=== PATIENT | female | born 1990 | race Caucasian/White ===

== ENCOUNTER 2020-04-16 12:13 | Outpatient (CLI) | payer MEDICAID, SELFPAY ==
[2020-04-18 09:43] LABS: COVID-19 RT-PCR Result NEGATIVE (Negative)
== END 2020-04-16 12:33 ==
PROVIDERS: Visit Provider Internal Medicine
DX: J45.909 Unspecified asthma, uncomplicated (principal); Z11.59 Encounter for screening for other viral diseases
CPT/HCPCS: U0003

== ENCOUNTER 2020-05-18 08:27 | Outpatient (CLI) | payer MEDICAID, SELFPAY ==
[2020-05-19 15:29] LABS: COVID-19 RT-PCR UVMMC Result Negative (Negative)
== END 2020-05-18 08:47 ==
PROVIDERS: Visit Provider Surgery
DX: Z11.52 Encounter for screening for COVID-19 (principal); Z01.818 Encounter for other preprocedural examination
CPT/HCPCS: U0003

== ENCOUNTER 2020-05-30 03:42 | Outpatient (CLI) | payer MEDICAID, SELFPAY ==
[2020-05-31 18:25] LABS: COVID-19 RT-PCR Result NEGATIVE (Negative)
== END 2020-05-30 04:02 ==
PROVIDERS: Visit Provider Surgery
DX: Z11.52 Encounter for screening for COVID-19 (principal); Z01.818 Encounter for other preprocedural examination
CPT/HCPCS: U0003

== ENCOUNTER 2020-06-14 22:21 | Emergency (ER) | payer MEDICAID, SELFPAY ==
--- NOTE | 2020-06-14 00:50 | DI.CT_ITS ---
EXAM: CT ABDOMEN PELVIS W CLINICAL HISTORY: POD 8 hernia repair with new pain/bulging TECHNIQUE: Imaging Protocol: Axial computed tomography images with coronal and sagittal reformatted images were created and reviewed CONTRAST MATERIAL: Intravenous: Omnipaque 350 Contrast volume:100 mL Oral: Yes COMPARISON: CT RENAL COLIC WO CONTRAST from 09/06/2009 FINDINGS: ABDOMEN: Lung Bases: Normal where visualized. Liver: Normal density. No measurable mass. The liver measures 20 cm in length. Portal, Superior Mesenteric, and Splenic Veins: Unremarkable. Gallbladder and Biliary Tract: No radiodense calculus or dilation. Pancreas: Normal density, no abnormal calcifications or inflammatory process. Spleen: Normal. Adrenals: No masses seen. Kidneys: Normal size, contour and axis. No radiodense stones or obstructive uropathy. No masses seen. Note is made of a circum aortic left renal vein. Abdominal Aorta: Abdominal portion non-dilated. Bowel: No obstruction or bowel wall thickening. No evidence of appendicitis. There is a large amount of stool within the colon suggesting constipation. Peritoneal Cavity: No ascites, collection or mesenteric inflammatory response. No free air. Lymph Nodes: Within normal limits. Bones: Within normal limits for the patient's age. Soft Tissues: Postsurgical changes are seen in the midline upper abdominal wall. There is a low-atte nuation fluid density area in the surgical bed. There is a small focus of air. No enhancing wall is seen at this time. No evidence of of communication with the intra-abdominal cavity suggesting herni ation. PELVIS: Bladder: Symmetric distention, no gross wall thickening. Reproductive Organs: Unremarkable as visualized. Lymph Nodes: Within normal limits. Bones: Within normal limits for the patient's age. IMPRESSION: Postsurgical changes in the supraumbilical region of the anterior abdominal wall consistent with the patient's recent hernia repair. There is a focal low-attenuation fluid density at the surgical site which contains a small focus of air. There is however, no peripherally enhancing wall to suggest abs cess. This may represent a postsurgical seroma/hematoma or developing phlegmon. Please correlate cl inically. No evidence of herniation at the surgical site. RADIATION DOSE DELIVERED: 757.81mGy.cm Total DLP DATA REPOSITORY: All CT scans at this facility are submitted to the National Radiology Data Registry (NRDR) Dose Index Registry (DIR) with the [employer] (A[employer]). RADIATION OPTIMIZATION: All CT scans at this facility use at least one of these dose optimization te chniques: automated exposure control; mA and/or kV adjustment per patient size (includes targeted exa ms where dose is matched to clinical indication); or iterative reconstruction.
[2020-06-14 22:25] VITALS: BP 135/85; PULSE 88; TEMP 36.5; O2SAT 99
--- NOTE | 2020-06-14 22:48 | W.ED.GENAD ---
Discharge Plan Disposition Patient Disposition: HOME Condition: Good Discharge Details Clinical Impression: Post-operative complication Primary Care Provider: Marie Ibarra ED Provider: Dean Holt Meds and New Rx's Prescriptions: Continued clonazepam 1 mg Tablet 1 mg PO DAILY RF: 0 methadone 10 mg/mL Concentrate 6 mg PO DAILY RF: 0 L norgest/e.estradiol-e.estrad [Ashlyna] 0.15 mg-30 mcg (84)/10 mcg (7) Tablets,Dose Pack,3 Month 1 tab PO DAILY RF: 0 Discharge Instructions Additional Instructions: CT scan shows collection of fluid in the subcutaneous tissue that is likely a seroma or hematoma. There is a small chance that it is the start of an infection though there is no evidence of that clinically at this time. You will need to contact your surgeon for close follow-up and refill of pain medication if needed. Recommend applying heat to the area on and off. Your surgeon will likely want to review the CAT scan himself so be sure to take the disc with you for follow-up. Return to ED if you develop fever, redness, warmth, drainage from the area. Medical Decision Making Patient presenting on postop day #8 from hernia repair with new, tender, hard oval mass below the incision which appears to be intact and not infected. Patient had had no issues prior to this evening. She otherwise looks well and the rest of her abdomen is benign. Will place IV and give Zofran and Toradol for her nausea and pain. Basic labs sent. CT scan with IV and oral contrast ordered. Laboratory studies unremarkable. White count normal. CT scan prelim read IMPRESSION: 1. Postsurgical changes of ventral, midline upper abdominal wall hernia repair with focal low-attenuation fluid density overlying surgical site within the subcutaneous fat. There is small focus of air associated with this collection, however without organized, peripherally enhancing wall to suggest abscess. May represent postsurgical seroma/hematoma versus developing phlegmon. Correlate clinically. No definite herniation of intra-abdominal contents at surgical site. 2. Mild hepatomegaly. Correlate with LFTs. Dictated and Authenticated by: Romaine Gamble MD Patient without fever, elevated white count, erythema, warmth and area is very firm to palpation. Therefore, suspect seroma/hematoma. Still complaining of significant pain and recurrent nausea. IV Tylenol and repeat Zofran given. Continues to complain of pain. Will dose with morphine but will need to find ride home. Disk made for patient to be discharged with so surgeon at [facility] [[email or web address] can review. Patient will need to contact in morning for follow up and refill of pain medications. Return to ED if develops fever, redness, warmth other signs of infection. Lab Data Lab results reviewed: Yes I reviewed the patient's lab results. HPI General Mode of arrival: ambulatory. Date/Time Provider Initiated Documentation: 06/14/20 22:22. Limitations to Documentation: no limitations. Information obtained by: patient and RN notes reviewed. HPI Narrative: Patient presents to the ED with pain and bulging in previous hernia site repair that occurred 8 days ago. Patient had been doing fine postop. She had no fever, nausea, vomiting, pain and had returned to work at [employer]. Tonight about 2 to 3 hours prior to coming in she started to have nausea and pain in the area with the incision had been made. She then felt a hard lump in that area that had not been there previously. Nausea and pain increased. She was unable to get a hold of the surgeon at [facility] [[email or web address]] who did the procedure. She came to the ED here for evaluation. Related Data Home Medications Medication Instructions Recorded Confirmed L norgest/e.estradiol-e.estrad 1 tab PO DAILY 06/14/20 06/14/20 [Ashlyna] clonazepam 1 mg PO DAILY 06/14/20 06/14/20 methadone 6 mg PO DAILY 06/14/20 06/14/20 Allergies Allergy/AdvReac Type Severity Reaction Status Date / Time No Known Allergies Allergy Unverified 08/18/13 10:23 General Stated Complaint: Abd Prob SUDHA: 3 Review of Systems Narrative: 02/21 Review of Systems completed and is negative except as stated above in HPI (Systems reviewed: Const, Eyes, ENT, Resp, CV, GI, , MSK, Skin, Neuro) [facility] Medical History No significant past medical history Surgical History S/P hernia repair Social History Smoking/Tobacco Use Status: Current every day Smoking risk assessment performed?: Yes Alcohol Intake: current Alcohol Intake frequency: holidays/special occasions only 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 HEENT: NC/AT. Normal facial exam. Eyes: Normal conjunctiva and sclera. Neck: Supple. Trachea midline. Lungs: Normal respiratory effort. Cor: Good radial pulses. GI: Soft and ND. 3 cm horizontal incision about 3cm above the umbilicus. Incision in tact without erythema. Hard, tender oval mass under the incision. Neuro: A+O x 3. Normal speech, mentation, gait. Cranial nerves II - XII grossly intact. No gross motor or sensory deficit. Ext: No C/C/E. Skin: Warm and dry without rash. Course Vital Signs Vital signs: Vital Signs Temperature 97.7 F 06/14/20 22:25 Pulse 88 06/14/20 22:25 Blood Pressure 135/85 06/14/20 22:25 Pulse Oximetry 99 06/14/20 22:25 Temperature 97.7 F 06/14/20 22:25 Temperature Source Temporal Artery Scan 06/14/20 22:25 Pulse 88 06/14/20 22:25 Respiratory Effort Non-Labored 06/14/20 22:30 Blood Pressure 135/85 06/14/20 22:25 Blood Pressure Position Sitting 06/14/20 22:25 Pulse Oximetry 99 06/14/20 22:25 Oxygen Delivery Method Room Air 06/14/20 22:25 Oxygen Flow Rate 0 06/14/20 22:25 Pain Level 7 06/14/20 22:25
[2020-06-14 23:00] LABS: Abs Immature Grans 0.02 10^3/uL (0.0-0.06); Absolute Basophil Count 0.05 10^3/uL (0.0-0.2); Absolute Eosinophil Count 0.17 10^3/uL (0.0-0.7); Absolute Lymphocyte Count 3.46 10^3/uL (1.2-3.4); Absolute Monocyte Count 0.72 10^3/uL (0.1-0.8); Absolute Neutrophil Count 4.95 10^3/uL (1.2-6.7); Basophils % 0.5; Eosinophils % 1.8; HCT 32.9 % (36.0-46.0); HGB 11.1 g/dL (11.2-15.7); Immature Grans % 0.2; Lymphocytes % 36.9; MCH 28.9 pg (27.0-33.0); MCHC 33.7 % (32.0-36.0); MCV 85.7 fL (80-95); MPV 9.1 fL (8.0-11.0); Monocytes % 7.7; Neutrophils % 52.9; Nucleated RBC 0 %; Platelet Count 342 10^3/uL (130-400); RBC 3.84 10^6/uL (3.93-5.22); RDW 12.8 % (11.7-14.6); RDW-SD 40.3 fL; WBC 9.37 10^3/uL (4.4-10.8)
[2020-06-14] MEDS: Lactated Ringers 1,000 ML 200 ML IV (23:00)
[2020-06-14] MEDS: Ondansetron 4 MG/2 ML VIAL IVP (23:00)
[2020-06-14] MEDS: Ketorolac 30 MG/ML VIAL IVP (23:01)
[2020-06-14 23:08] LABS: Anion Gap 9.8 mmol/L (3-11); BUN 14 mg/dL (7-18); CO2 24.2 mmol/L (21.0-32.0); CREATININE 0.6 mg/dL (0.55-1.02); Calcium 8.8 mg/dL (8.5-10.1); Chloride 105 mmol/L (98-107); Glucose 105 mg/dL (74-106); Potassium 3.7 mmol/L (3.5-5.1); Sodium 139 mmol/L (136-145)
[2020-06-14 23:12] LABS: HCG Qual (Serum) Negative
[2020-06-15] MEDS: Omnipaque 350 MG/ML 100 ML BTL IJ (01:01)
[2020-06-15] MEDS: Omnipaque 350 MG/ML 50 ML BTL IJ (01:02)
[2020-06-15] MEDS: Breeza Beverage 473 ML BTL PO ×2 (01:02→01:03)
[2020-06-15] MEDS: Normal Saline Flush 10 ML SYR IVP (01:03)
[2020-06-15] MEDS: Normal Saline - Diluent 50 ML VIAL IV (01:04)
--- NOTE | 2020-06-15 01:08 | DI.VRAD_ITS ---
PROCEDURE INFORMATION: Exam: CT Abdomen And Pelvis With Contrast Exam date and time: 06/14/2020 10:43 PM Age: 29 years old Clinical indication: Abdominal pain; Localized; Lower; Prior surgery; Surgery date: <1 month; Patient HX: 8 days post op hernia repair, new pain and bulging TECHNIQUE: Imaging protocol: Computed tomography of the abdomen and pelvis with contrast. Radiation optimization: All CT scans at this facility use at least one of these dose optimization techniques: automated exposure control; mA and/or kV adjustment per patient size (includes targeted exams where dose is matched to clinical indication); or iterative reconstruction. Contrast material: [id number]; Contrast volume: 100 ml; Contrast route: INTRAVENOUS (IV); COMPARISON: No relevant prior studies available. FINDINGS: Lungs: Lung bases are clear. Liver: Liver is mildly enlarged with right hepatic lobe measuring 20.3 cm craniocaudad. No hepatic mass. Gallbladder and bile ducts: Unremarkable. No calcified stones. No ductal dilation. Pancreas: Unremarkable. No ductal dilation. Spleen: Unremarkable. No splenomegaly. Adrenal glands: Normal. No mass. Kidneys and ureters: Unremarkable. No hydronephrosis. Ureters are normal in course and caliber. Stomach and bowel: No focal colonic mural thickening. There is moderate colonic stool burden, correlate for constipation. No bowel obstruction. Appendix: No evidence of acute appendicitis. Intraperitoneal space: No free air. No significant fluid collection. Vasculature: No abdominal aortic aneurysm or dissection. There is circumaortic left renal vein, normal anatomic variant. Lymph nodes: No pathologically enlarged lymph nodes. Urinary bladder: Unremarkable as visualized. Reproductive: Unremarkable as visualized. Bones/joints: Transitional lumbosacral anatomy with partial sacralization of the transverse elements of L5, left greater than right with asymmetric left pseudoarticulation. No acute fracture. Soft tissues: Postsurgical changes of the ventral, midline upper abdominal wall. There is focal low-attenuation fluid density with small focus of air. No organized, peripherally enhancing wall. There is no definite associated herniation of intra-abdominal contents. IMPRESSION: 1. Postsurgical changes of ventral, midline upper abdominal wall hernia repair with focal low-attenuation fluid density overlying surgical site within the subcutaneous fat. There is small focus of air associated with this collection, however without organized, peripherally enhancing wall to suggest abscess. May represent postsurgical seroma/hematoma versus developing phlegmon. Correlate clinically. No definite herniation of intra-abdominal contents at surgical site. 2. Mild hepatomegaly. Correlate with LFTs. Dictated and Authenticated by: Romaine Gamble MD. Ordering:SOWMYA Moran MD
[2020-06-15] MEDS: ACETAMINOPHEN 1,000 MG/100 ML BTL 400 MG IVPB (01:30)
[2020-06-15] MEDS: Ondansetron 4 MG/2 ML VIAL IVP (01:49)
[2020-06-15 02:25] VITALS: BP 122/65; PULSE 73; RESP 16; O2SAT 99
[2020-06-15 02:53] VITALS: BP 129/79; PULSE 66; RESP 16; O2SAT 99
== END 2020-06-15 03:10 | disposition home or self-care (01) ==
PROVIDERS: Emergency Provider Emergency Medicine
DX: L76.34 Postprocedural seroma of skin and subcutaneous tissue following other procedure (principal); R11.0 Nausea; R10.33 Periumbilical pain; G89.18 Other acute postprocedural pain; Z98.890 Other specified postprocedural states
CPT/HCPCS: 36415; 80048; 96361; 96365; 96374; 96375; 96376; 99285; 74177; 84703; 85025; 99284; J0131; J1885; J2405; J3490; Q9967

== ENCOUNTER 2020-08-20 14:16 | Emergency (ER) | payer MEDICAID, SELFPAY ==
[2020-08-20] VITALS (23 sets, daily range): BP systolic 102–132; BP diastolic 36–78; PULSE 53–90; RESP 10–26; TEMP 36.5; O2SAT 96–98
[2020-08-20 15:21] LABS: Abs Immature Grans 0.02 10^3/uL (0.0-0.06); Absolute Basophil Count 0.04 10^3/uL (0.0-0.2); Absolute Eosinophil Count 0.08 10^3/uL (0.0-0.7); Absolute Monocyte Count 0.53 10^3/uL (0.1-0.8); Absolute Neutrophil Count 6.17 10^3/uL (1.2-6.7); Basophils % 0.4; Eosinophils % 0.9; HCT 35.6 % (36.0-46.0); HGB 11.8 g/dL (11.2-15.7); Immature Grans % 0.2; MCHC 33.1 % (32.0-36.0); MCV 87.5 fL (80-95); MPV 9.3 fL (8.0-11.0); Monocytes % 5.7; Neutrophils % 66.8; Nucleated RBC 0 %; Platelet Count 352 10^3/uL (130-400); RBC 4.07 10^6/uL (3.93-5.22); RDW 13.3 % (11.7-14.6); RDW-SD 42.1 fL; WBC 9.24 10^3/uL (4.4-10.8)
[2020-08-20 15:38] LABS: INR 1.1 (0.9-1.1); PTT Activated 23.9 sec (21.0-27.5); Prothrombin Time 10.7 sec (9.3-11.0)
[2020-08-20 15:40] LABS: ALT 21 U/L (14-59); AST 12 U/L (15-37); Albumin 4.2 g/dL (3.4-5.0); Alkaline Phosphatase 41 U/L (46-116); Anion Gap 12.8 mmol/L (3-11); BUN 11 mg/dL (7-18); Bilirubin, Total 0.3 mg/dL (0.2-1.0); CO2 26.2 mmol/L (21.0-32.0); CREATININE 0.9 mg/dL (0.55-1.02); Calcium 8.9 mg/dL (8.5-10.1); Chloride 103 mmol/L (98-107); Glucose 84 mg/dL (74-106); Potassium 3.6 mmol/L (3.5-5.1); Sodium 142 mmol/L (136-145); Total Protein 7.7 g/dL (6.4-8.2)
--- NOTE | 2020-08-20 15:42 | W.ED.GENAD ---
Discharge Plan Disposition Patient Disposition: STILL A PATIENT Condition: Stable Discharge Details Chief Complaint: SOB Clinical Impression: Shortness of breath Primary Care Provider: Veronica Franklin ED Provider: Tj Galicia Home Meds and New Rx's Prescriptions: No Action hydroxyzine HCl 25 mg Tablet 50 mg PO HS RF: 0 clonazepam 1 mg Tablet 1 mg PO DAILY RF: 0 methadone 10 mg/mL Concentrate 3 mg PO DAILY RF: 0 L norgest/e.estradiol-e.estrad [Ashlyna] 0.15 mg-30 mcg (84)/10 mcg (7) Tablets,Dose Pack,3 Month 1 tab PO DAILY RF: 0 Medical Decision Making 30-year-old female, past sickle history of smoking, asthma, presents to the ER for 1 week history of worsening shortness of breath, no relief with her inhaler. Primarily dry cough, occasional clear sputum. Reports shortness of breath but denies any chest pain. Denies pain or swelling in her legs. Clinically she appears well, nontoxic. Blood pressure 132/78 pulse in the 90s, afebrile, O2 sat 96% on room air. Given she does take a daily control, we cannot use the PERC criteria. Will obtain IV access, CBC, CMP, EKG, D-dimer. We will also obtain a send out Covid test. If D-dimer is positive will obtain CTA, if D-dimer is negative will obtain chest x-ray. Patient comfortable with this plan Initial laboratory values are unremarkable. Awaiting D-dimer and EKG. Medical Records Medical records reviewed: Yes I reviewed the patient's medical records. Lab Data Lab results reviewed: Yes I reviewed the patient's lab results. Labs: Laboratory Tests Range/Units 08/20/20 08/20/20 08/20/20 15:13 15:13 15:13 WBC (4.4-10.8) 10^3/uL 9.24 RBC (3.93-5.22) 10^6/uL 4.07 Hgb (11.2-15.7) g/dL 11.8 Hct (36.0-46.0) % 35.6 L MCV (80-95) fL 87.5 MCH (27.0-33.0) pg 29.0 MCHC (32.0-36.0) % 33.1 RDW (11.7-14.6) % 13.3 Plt Count (130-400) 10^3/uL 352 MPV (8.0-11.0) fL 9.3 Immature Gran % 0.2 Neutrophils % 66.8 Lymphocytes % 26.0 Monocytes % 5.7 Eosinophils % 0.9 Basophils % 0.4 Nucleated RBC % % 0 Absolute Neutrophils (1.2-6.7) 10^3/uL 6.17 Absolute Lymphocytes (1.2-3.4) 10^3/uL 2.40 Absolute Monocytes (0.1-0.8) 10^3/uL 0.53 Absolute Eosinophils (0.0-0.7) 10^3/uL 0.08 Absolute Basophils (0.0-0.2) 10^3/uL 0.04 PT (9.3-11.0) sec 10.7 INR (0.9-1.1) 1.1 APTT (21.0-27.5) sec 23.9 D-Dimer (<500) ng/mlFEU 337 Sodium (136-145) mmol/L 142 Potassium (3.5-5.1) mmol/L 3.6 Chloride (98-107) mmol/L 103 Carbon Dioxide (21.0-32.0) mmol/L 26.2 Anion Gap (3-11) mmol/L 12.8 H BUN (7-18) mg/dL 11 Creatinine (0.55-1.02) mg/dL 0.9 Estimated GFR/1.73 m2 (mL/min/1.73m2) >= 60.00 Glucose (74-106) mg/dL 84 Calcium (8.5-10.1) mg/dL 8.9 Total Bilirubin (0.2-1.0) mg/dL 0.3 AST (15-37) U/L 12 L ALT (14-59) U/L 21 Alkaline Phosphatase (46-116) U/L 41 L Total Protein (6.4-8.2) g/dL 7.7 Albumin (3.4-5.0) g/dL 4.2 HPI General Mode of arrival: ambulatory. Date/Time Provider Initiated Documentation: 08/20/20 14:22. Limitations to Documentation: no limitations. Information obtained by: patient. HPI Narrative: This is a 30-year-old female past medical history that includes asthma, anxiety, daily methadone use, oral contraceptive, presenting to the ER reporting increasing shortness of breath over the past week. Primarily dry cough, occasional clear sputum. She denies any chest pain, fever, pain or swelling in her legs. She denies any obvious Covid contacts. Has been in contact with people who have had walking pneumonia. She reports mild global headache. She has had intermittent episodes of vomiting over the past week but none today. She denies any back pain, abdominal pain, change in bowel or bladder function, numbness, tingling, weakness. She has been taking her inhaler that she typically uses for her asthma without relief. Related Data Home Medications Medication Instructions Recorded Confirmed L norgest/e.estradiol-e.estrad 1 tab PO DAILY 06/14/20 08/20/20 [Ashlyna] clonazepam 1 mg PO DAILY 06/14/20 08/20/20 methadone 3 mg PO DAILY 06/14/20 08/20/20 hydroxyzine HCl 50 mg PO HS 08/20/20 08/20/20 Allergies Allergy/AdvReac Type Severity Reaction Status Date / Time No Known Allergies Allergy Unverified 08/20/20 14:27 General Stated Complaint: SOB SUDHA: 3 Review of Systems Constitutional Constitutional: Denies fatigue, Denies fever(s) and Reports headache(s) ENT Ears, Nose, Mouth, and Throat: Reports headache(s) and Denies neck pain Cardiovascular Cardiovascular: Denies chest pain and Reports dyspnea Respiratory Respiratory: Reports cough, Reports dyspnea and Denies wheezing Gastrointestinal Gastrointestinal: Denies abdominal pain, Reports nausea and Reports vomiting Genitourinary Genitourinary: Denies dysuria Musculoskeletal Musculoskeletal: Denies back pain and Denies neck pain Integumentary/Breasts Skin/Breast: Denies rash Neurologic Neurologic: Reports headache(s) Endocrine Endocrine: Denies fatigue Allergic/Immunologic Allergic/Immunologic: Denies wheezing [facility] Medical History No significant past medical history Surgical History S/P hernia repair Social History Smoking/Tobacco Use Status: Current every day Smoking risk assessment performed?: Yes Alcohol Intake: current Alcohol Intake frequency: holidays/special occasions only 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 Do you feel safe at home: Yes Do you feel safe in your relationship?: Yes Exam Const General: cooperative, healthy appearing, comfortable and no acute distress Orientation: alert, awake and oriented x3 HENMT Head: normal to inspection, normocephalic and atraumatic Ears: external ears normal, TM's normal bilaterally and EAC's normal Face and sinus: normal facial exam Mouth: moist mucous membranes Throat: posterior oropharynx normal Eyes General: appearance normal, both eyes and all related structures Conjunctivae: conjunctivae normal Neck Neck: normal visual inspection, full ROM, no lymphadenopathy, no meningeal signs, trachea midline, supple and nontender Resp Effort & Inspection: normal respiratory effort and able to speak in complete sentences Auscultation: clear to auscultation bilaterally Cardio Rate: regular rate Rhythm: regular rhythm Skin General skin exam: no rashes or lesions noted Neuro General: patient alert, patient awake, moves all extremities and no focal motor deficits Sensory Exam: no sensory deficits noted Psych Appearance: grossly normal Mental Status: mental status grossly normal Course Vital Signs Vital signs: Vital Signs Temperature 36.5 C 08/20/20 14:20 Pulse 90 08/20/20 14:20 Respiratory Rate 14 08/20/20 14:20 Blood Pressure 132/78 08/20/20 14:20 Pulse Oximetry 96 08/20/20 14:20 Temperature 36.5 C 08/20/20 14:20 Temperature Source Skin 08/20/20 14:20 Pulse 90 08/20/20 14:20 Respiratory Rate 14 08/20/20 15:09 Respiratory Effort Non-Labored 08/20/20 15:09 Respiratory Depth Normal 08/20/20 15:09 Respiratory Pattern Normal 08/20/20 15:09 Blood Pressure 132/78 08/20/20 14:20 Blood Pressure Position Sitting 08/20/20 14:20 Pulse Oximetry 96 08/20/20 14:20 Oxygen Delivery Method Room Air 08/20/20 14:20 Oxygen Flow Rate 0 08/20/20 14:20 Pain Level 0 08/20/20 15:09 Lab/Test Results Lab/Test Results: Laboratory Tests Range/Units 08/20/20 15:13 WBC (4.4-10.8) 10^3/uL 9.24 RBC (3.93-5.22) 10^6/uL 4.07 Hgb (11.2-15.7) g/dL 11.8 Hct (36.0-46.0) % 35.6 L MCV (80-95) fL 87.5 MCH (27.0-33.0) pg 29.0 MCHC (32.0-36.0) % 33.1 RDW (11.7-14.6) % 13.3 Plt Count (130-400) 10^3/uL 352 MPV (8.0-11.0) fL 9.3 Immature Gran % 0.2 Neutrophils % 66.8 Lymphocytes % 26.0 Monocytes % 5.7 Eosinophils % 0.9 Basophils % 0.4 Nucleated RBC % % 0 Absolute Neutrophils (1.2-6.7) 10^3/uL 6.17 Absolute Lymphocytes (1.2-3.4) 10^3/uL 2.40 Absolute Monocytes (0.1-0.8) 10^3/uL 0.53 Absolute Eosinophils (0.0-0.7) 10^3/uL 0.08 Absolute Basophils (0.0-0.2) 10^3/uL 0.04
--- NOTE | 2020-08-20 15:45 | RT.EKG_ITS ---
APPROVED REPORT Exam: Resting ECG Patient Location: E HR:46 bpm ECG Measurements Heart Rate 46 AXIS KS 161 P 46 QRSd 103 QRS 47 QT 416 T 20 QTc 363 Conclusion Sinus bradycardia...rate< 60 I have reviewed and interpreted ECG and agree with software generated interpretation.
[2020-08-20 16:10] LABS: D-Dimer 337 ng/mlFEU (<500)
--- NOTE | 2020-08-20 16:15 | DI.RAD_ITS ---
EXAM: XR PORTABLE CHEST AP CLINICAL HISTORY: sob. TECHNIQUE: 2D digital imaging was performed. COMPARISON: CR ABD FLAT UPRIGHT PA CHEST from 07/27/2011 FINDINGS: Heart size is normal. The mediastinum is not widened. Lungs are clear. No infiltrates nor obvious pleural effusions. 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 DATA REPOSITORY: RADIATION DOSE DELIVERED: All CT scans at this facility use at least one of these dose optimization techniques: automated exposure control; mA and/or kV adjustment per patient size (includes targeted e xams where dose is matched to clinical indication); or iterative reconstruction.
--- NOTE | 2020-08-20 17:00 | DI.VRAD_ITS ---
PROCEDURE INFORMATION: Exam: XR Chest Exam date and time: 08/20/2020 4:51 PM Age: 30 years old Clinical indication: Shortness of breath; Patient HX: SOB TECHNIQUE: Imaging protocol: XR of the chest. Views: 1 view. COMPARISON: No relevant prior studies available. FINDINGS: Lungs: Unremarkable. No consolidation. Pleural spaces: Unremarkable. No pleural effusion. No pneumothorax. Heart/Mediastinum: Unremarkable. No cardiomegaly. 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 IMPRESSION: No acute findings. Dictated and Authenticated by: Chandrika Zelaya MD. Ordering:ROB Spencer MD
[2020-08-20] MEDS: predniSONE 20 MG TAB 60 MG PO (17:54)
[2020-08-21 11:52] LABS: COVID-19 RT-PCR UVMMC Result Negative (Negative)
--- NOTE | 2020-08-23 09:47 | NUR.NOTE ---
Nursing Note: Patient called the ED on 08/23/2020 @ 0948 looking for COVID test results. RN confirmed patients date of and relayed negative COVID results to patient.
== END 2020-08-20 18:00 | disposition home or self-care (01) ==
PROVIDERS: Physician Assistant; Emergency Provider Student in an Organized Health Care Education/Training Program
DX: R06.02 Shortness of breath (principal); Z20.822 Contact with and (suspected) exposure to COVID-19
CPT/HCPCS: 80053; 93005; 99284; U0003; 71045; 85025; 85379; 85610; 85730; 93010; 99283; J7512

== ENCOUNTER 2020-12-12 15:40 | Outpatient (REF) | payer MEDICAID, SELFPAY ==
[2020-12-14 10:19] LABS: COVID-19 RT-PCR UVMMC Result Negative (Negative)
== END 2020-12-12 15:41 | disposition home or self-care (01) ==
LOC: LBN 15:40
PROVIDERS: Visit Provider Nurse Practitioner Family
DX: Z20.822 Contact with and (suspected) exposure to COVID-19 (principal); J06.9 Acute upper respiratory infection, unspecified
CPT/HCPCS: U0003

== ENCOUNTER 2020-12-26 21:14 | Outpatient (REF) | payer MEDICAID, SELFPAY | END 2020-12-26 21:15 | disposition home or self-care (01) | LOC: LBN 21:14 | PROVIDERS: Visit Provider Physician Assistant Medical | DX: R35.0 Frequency of micturition (principal) | CPT/HCPCS: 87086 ==

== ENCOUNTER 2021-01-21 15:10 | Outpatient (REF) | payer MEDICAID, SELFPAY | END 2021-01-21 15:11 | disposition home or self-care (01) | LOC: LBN 15:10 | PROVIDERS: Referring Provider Nurse Practitioner Family; Visit Provider Nurse Practitioner Family | DX: R35.0 Frequency of micturition (principal) | CPT/HCPCS: 87077; 87086; 87186 ==

== ENCOUNTER 2021-01-23 12:22 | Emergency (ER) | payer MEDICAID, SELFPAY ==
[2021-01-23 12:37] VITALS: BP 119/63; PULSE 78; RESP 18; TEMP 36.7; O2SAT 98
--- NOTE | 2021-01-23 12:45 | DI.US_ITS ---
Exam(s) US RENAL EXAM: US RENAL CLINICAL HISTORY: left flank pain. TECHNIQUE: Ware scale, color and spectral Doppler were used. COMPARISON: No exams were available for comparison FINDINGS: Renal size in cm: Right: 11.6. Left: 11.3. Echogenicity: Normal. Hydronephrosis: No. Cyst or mass: No. Nephrolithiasis: No. Other findings: None. Bladder:Normal. Ureteral jets: Right: Visualized and unremarkable. Left: Visualized and unremarkable. Prevoid vol:76 cc Postvoid vol:The patient did not feel the need to void. Renal color flow: Symmetric and within normal limits. IMPRESSION: Unremarkable examination. DATA REPOSITORY:
[2021-01-23 13:01] LABS: Bilirubin Negative (Negative); Blood Small (Negative); Clarity Clear (Clear); Glucose Negative (Negative); Ketones Negative (Negative); Leukocyte Esterase Trace (Negative); Nitrite Negative (Negative); Specific Gravity >= 1.030 (1.005-1.025); Urobilinogen 0.2 EU/dL (Up TO 0.2); pH 6.5 (5-8)
[2021-01-23 13:07] LABS: Bacteria Rare HPF (Negative); C & S Indicated? No/Sq. Contamination; Casts Negative LPF (Negative); Crystals Negative HPF (Negative); Epithelial Cells Moderate HPF (Negative); Mucus Negative (Negative); RBC 0-2 HPF (0-2); WBC 0-2 HPF (0-5)
[2021-01-23 14:01] LABS: Abs Immature Grans 0.03 10^3/uL (0.0-0.06); Absolute Basophil Count 0.05 10^3/uL (0.0-0.2); Absolute Eosinophil Count 0.08 10^3/uL (0.0-0.7); Absolute Lymphocyte Count 1.17 10^3/uL (1.2-3.4); Absolute Monocyte Count 1.18 10^3/uL (0.1-0.8); Absolute Neutrophil Count 8.02 10^3/uL (1.2-6.7); Basophils % 0.5; Eosinophils % 0.8; HCT 37.3 % (36.0-46.0); HGB 12.4 g/dL (11.2-15.7); Immature Grans % 0.3; Lymphocytes % 11.1; MCH 29.5 pg (27.0-33.0); MCHC 33.2 % (32.0-36.0); MCV 88.6 fL (80-95); MPV 9.2 fL (8.0-11.0); Monocytes % 11.2; Neutrophils % 76.1; Nucleated RBC 0 %; Platelet Count 312 10^3/uL (130-400); RBC 4.21 10^6/uL (3.93-5.22); RDW 13.8 % (11.7-14.6); RDW-SD 44.9 fL; WBC 10.53 10^3/uL (4.4-10.8)
[2021-01-23 14:16] LABS: ALT 23 U/L (14-59); AST 20 U/L (15-37); Albumin 4.3 g/dL (3.4-5.0); Alkaline Phosphatase 51 U/L (46-116); Anion Gap 9.4 mmol/L (3-11); BUN 15 mg/dL (7-18); Bilirubin, Total 0.3 mg/dL (0.2-1.0); CO2 24.6 mmol/L (21.0-32.0); CREATININE 0.8 mg/dL (0.55-1.02); Calcium 9.2 mg/dL (8.5-10.1); Chloride 104 mmol/L (98-107); Glucose 85 mg/dL (74-106); Potassium 4.3 mmol/L (3.5-5.1); Sodium 138 mmol/L (136-145); Total Protein 8.2 g/dL (6.4-8.2)
--- NOTE | 2021-01-23 15:40 | W.ED.GENAD ---
Discharge Plan Disposition Patient Disposition: HOME Condition: Stable Discharge Details Clinical Impression: Abdominal pain Primary Care Provider: Veronica Franklin ED Provider: Lisbet Mary Home Meds and New Rx's Prescriptions: New cephalexin 500 mg capsule 500 mg PO BID 7 Days Qty: 14 RF: 0 ondansetron HCl [Zofran] 4 mg tablet 4 mg PO Q8H PRNQty: 10 RF: 0 Discontinued methadone 10 mg/mL Concentrate 3 mg PO DAILY RF: 0 No Action hydroxyzine HCl 25 mg Tablet 50 mg PO HS RF: 0 prednisone 20 mg tablet 60 mg PO DAILY Qty: 12 RF: 0 clonazepam 1 mg Tablet 1 mg PO DAILY RF: 0 L norgest/e.estradiol-e.estrad [Ashlyna] 0.15 mg-30 mcg (84)/10 mcg (7) Tablets,Dose Pack,3 Month 1 tab PO DAILY RF: 0 Discharge Instructions Instructions: Abdominal Pain (ED) Additional Instructions: Take Zofran as needed for nausea and vomiting Discontinue the ciprofloxacin and start taking your Keflex Recheck in 24 to 48 hours Please return should you have fever, chills, or with any new or worsening complaints Discharge Data Discharge Date/Time-TO BE ENTERED AT DEPARTURE: 01/23/21 15:54 Medical Decision Making Ultrasound renal did not show acute abnormality, diagnostic blood work is reassuring, hemodynamically stable, urinalysis reviewed and urine culture reviewed with gram-positive sujatha, patient is on Cipro as her exacerbated after she took this medication this morning, she may be having some gastritis from the ciprofloxacin, will place her on Zofran and switch her to Keflex, pending culture sensitivities I did initially evaluate this patient in the emergency room secondary to capacity, the emergency room significantly dizzy I did not perform an exam until midway into the patient assessment and did notice ecchymosis at that time, I did consider clinic injury, however patient is 5 days post fall and she does not have any pain over her spleen, she does not have any evidence of a renal hematoma, she is hemodynamically stable, my suspicion for splenic injury is quite low based on this assessment and I think the risk outweighs benefit at this time Return precautions discussed patient expressed understanding Discharged home in stable condition, HPI General Mode of arrival: ambulatory. Date/Time Provider Initiated Documentation: 01/23/21 12:51. Limitations to Documentation: no limitations. Information obtained by: patient. HPI Narrative: This 30-year-old female presents with left upper quadrant and epigastric pain. She denies any fever or chills. She states that she was started on Cipro for urinary tract infection. She states an hour after taking this medication her symptoms worsened. She denies any chest pain or shortness of breath. She denies any dizziness or weakness. She denies any exacerbating or alleviating factors. She denies any presyncopal symptoms. Initially was treated for urinary tract infection with dysuria and frequency. She is currently taking Cipro since Thursday evening. She vomited once this morning. Denies any weakness or dizziness. Related Data Home Medications Medication Instructions Recorded Confirmed L norgest/e.estradiol-e.estrad 1 tab PO DAILY 06/14/20 08/20/20 [Ashlyna] clonazepam 1 mg PO DAILY 06/14/20 08/20/20 hydroxyzine HCl 50 mg PO HS 08/20/20 08/20/20 prednisone 60 mg PO DAILY #12 tab 08/20/20 cephalexin 500 mg PO BID 7 Days #14 cap 01/23/21 ondansetron HCl [Zofran] 4 mg PO Q8H PRN #10 tab 01/23/21 Previous Rx's Medication Instructions Recorded prednisone 60 mg PO DAILY #12 tab 08/20/20 cephalexin 500 mg PO BID 7 Days #14 cap 01/23/21 ondansetron HCl [Zofran] 4 mg PO Q8H PRN #10 tab 01/23/21 Allergies Allergy/AdvReac Type Severity Reaction Status Date / Time No Known Allergies Allergy Unverified 08/20/20 14:27 General Stated Complaint: Urinary SUDHA: 4 Review of Systems All systems reviewed & are unremarkable except as noted in HPI and below PFSH Medical History No significant past medical history Surgical History S/P hernia repair Social History Smoking/Tobacco Use Status: Current every day Smoking risk assessment performed?: Yes Alcohol Intake: current Alcohol Intake frequency: holidays/special occasions only Drug use: Never Substance use type: marijuana Details: clean/sober for 7 years Do you feel safe at home: Yes Do you feel safe in your relationship?: Yes Exam Const General: cooperative, comfortable and no acute distress Eyes Pupils: PERRL Resp Effort & Inspection: normal respiratory effort Auscultation: clear to auscultation bilaterally Cardio Rate: regular rate Rhythm: regular rhythm GI Other: 4 inch ecchymosis to left lower quadrant, no reproducible abdominal tenderness, left CVA tenderness, no visible sign of trauma to left upper quadrant, no abdominal bruit or pulsatile, Back/Spine/Pelvis Other: No midline tenderness to thoracic or lumbar spine Skin Other: Ecchymosis, left lower quadrant Neuro General: patient alert and patient oriented x3 Course Vital Signs Vital signs: Vital Signs Temperature 36.7 C 01/23/21 12:37 Pulse 78 01/23/21 12:37 Respiratory Rate 18 01/23/21 12:37 Blood Pressure 119/63 01/23/21 12:37 Pulse Oximetry 98 01/23/21 12:37 Temperature 36.7 C 01/23/21 12:37 Temperature Source Skin 01/23/21 12:37 Pulse 78 01/23/21 12:37 Respiratory Rate 18 01/23/21 12:37 Respiratory Effort 01/23/21 13:01 Blood Pressure 119/63 01/23/21 12:37 Pulse Oximetry 98 01/23/21 12:37 Oxygen Delivery Method Room Air 01/23/21 12:37 Oxygen Flow Rate 0 01/23/21 12:37 Pain Level 7 01/23/21 12:37 Lab/Test Results Lab/Test Results: Laboratory Tests Range/Units 01/23/21 01/23/21 01/23/21 12:45 13:45 13:45 WBC (4.4-10.8) 10^3/uL 10.53 RBC (3.93-5.22) 10^6/uL 4.21 Hgb (11.2-15.7) g/dL 12.4 Hct (36.0-46.0) % 37.3 MCV (80-95) fL 88.6 MCH (27.0-33.0) pg 29.5 MCHC (32.0-36.0) % 33.2 RDW (11.7-14.6) % 13.8 Plt Count (130-400) 10^3/uL 312 MPV (8.0-11.0) fL 9.2 Immature Gran % 0.3 Neutrophils % 76.1 Lymphocytes % 11.1 Monocytes % 11.2 Eosinophils % 0.8 Basophils % 0.5 Nucleated RBC % % 0 Absolute Neutrophils (1.2-6.7) 10^3/uL 8.02 H Absolute Lymphocytes (1.2-3.4) 10^3/uL 1.17 L Absolute Monocytes (0.1-0.8) 10^3/uL 1.18 H Absolute Eosinophils (0.0-0.7) 10^3/uL 0.08 Absolute Basophils (0.0-0.2) 10^3/uL 0.05 Sodium (136-145) mmol/L 138 Potassium (3.5-5.1) mmol/L 4.3 Chloride (98-107) mmol/L 104 Carbon Dioxide (21.0-32.0) mmol/L 24.6 Anion Gap (3-11) mmol/L 9.4 BUN (7-18) mg/dL 15 Creatinine (0.55-1.02) mg/dL 0.8 Estimated GFR/1.73 m2 (mL/min/1.73m2) >= 60.00 Glucose (74-106) mg/dL 85 Calcium (8.5-10.1) mg/dL 9.2 Total Bilirubin (0.2-1.0) mg/dL 0.3 AST (15-37) U/L 20 ALT (14-59) U/L 23 Alkaline Phosphatase (46-116) U/L 51 Total Protein (6.4-8.2) g/dL 8.2 Albumin (3.4-5.0) g/dL 4.3 Urine Color (Yellow) Yellow Urine Clarity (Clear) Clear Urine pH (5-8) 6.5 Ur Specific [place] (1.005-1.025) >= 1.030 H Urine Protein (Negative) mg/dL Negative Urine Ketones (Negative) mg/dL Negative Urine Blood (Negative) Small H Urine Nitrite (Negative) Negative Urine Bilirubin (Negative) Negative Urine Urobilinogen (Up TO 0.2) EU/dL 0.2 Ur Leukocyte Esterase (Negative) Trace H Urine RBC (0-2) HPF 0-2 Urine WBC (0-5) HPF 0-2 Ur Epithelial Cells (Negative) HPF Moderate Urine Crystals (Negative) HPF Negative Urine Bacteria (Negative) HPF Rare Urine Casts (Negative) LPF Negative Urine Mucus (Negative) Negative Ur Culture Indicated? No/Sq. Contamination Urine Glucose (Negative) mg/dL Negative POC- Test(urine) Negative
== END 2021-01-23 15:54 | disposition home or self-care (01) ==
PROVIDERS: Emergency Provider Physician Assistant
DX: R11.2 Nausea with vomiting, unspecified (principal); R10.13 Epigastric pain; T36.8X5A Adverse effect of other systemic antibiotics, initial encounter; Z87.440 Personal history of urinary (tract) infections
CPT/HCPCS: 36415; 76770; 80053; 81025; 99284; 81003; 81015; 85025

== ENCOUNTER 2021-02-06 13:58 | Outpatient (REF) | payer MEDICAID, SELFPAY ==
[2021-02-08 14:46] LABS: Chlamydia Result Negative (Negative); GC Result Negative (Negative)
== END 2021-02-06 13:59 | disposition home or self-care (01) ==
LOC: LBN 13:58
PROVIDERS: Visit Provider Physician Assistant Medical
DX: N39.0 Urinary tract infection, site not specified (principal); Z11.3 Encounter for screening for infections with a predominantly sexual mode of transmission
CPT/HCPCS: 87491; 87591; 87086; 87480; 87510; 87660

== ENCOUNTER 2021-02-25 22:35 | Outpatient (REF) | payer MEDICAID, SELFPAY ==
[2021-02-25 22:45] LABS: Abs Immature Grans 0.02 10^3/uL (0.0-0.06); Absolute Basophil Count 0.04 10^3/uL (0.0-0.2); Absolute Lymphocyte Count 1.34 10^3/uL (1.2-3.4); Absolute Monocyte Count 0.66 10^3/uL (0.1-0.8); Absolute Neutrophil Count 4.92 10^3/uL (1.2-6.7); Basophils % 0.6; Eosinophils % 1.4; HCT 36.2 % (36.0-46.0); HGB 12.2 g/dL (11.2-15.7); Immature Grans % 0.3; Lymphocytes % 18.9; MCHC 33.7 % (32.0-36.0); MCV 89.2 fL (80-95); MPV 10.4 fL (8.0-11.0); Monocytes % 9.3; Neutrophils % 69.5; Nucleated RBC 0 %; Platelet Count 324 10^3/uL (130-400); RBC 4.06 10^6/uL (3.93-5.22); RDW 13.5 % (11.7-14.6); RDW-SD 44.6 fL; WBC 7.08 10^3/uL (4.4-10.8)
[2021-02-25 23:00] LABS: Anion Gap 9.2 mmol/L (3-11); BUN 11 mg/dL (7-18); CO2 24.8 mmol/L (21.0-32.0); CREATININE 0.9 mg/dL (0.55-1.02); Calcium 8.7 mg/dL (8.5-10.1); Chloride 103 mmol/L (98-107); Glucose 83 mg/dL (74-106); HCG Quant, Pregnancy 10 mIU/mL (1-3); Potassium 3.9 mmol/L (3.5-5.1); Sodium 137 mmol/L (136-145)
[2021-02-27 14:45] LABS: Chlamydia Result Negative (Negative); GC Result Negative (Negative)
== END 2021-02-25 22:36 | disposition home or self-care (01) ==
LOC: LBN 22:35
PROVIDERS: Visit Provider Physician Assistant Medical
DX: R30.0 Dysuria (principal); N89.8 Other specified noninflammatory disorders of vagina
CPT/HCPCS: 80048; 87491; 87591; 84702; 85025; 87086; 87480; 87510; 87660

== ENCOUNTER 2021-02-27 09:26 | Outpatient (REF) | payer MEDICAID, SELFPAY ==
[2021-02-27 11:03] LABS: HCG Quant, Pregnancy 41 mIU/mL (1-3)
== END 2021-02-27 09:27 | disposition home or self-care (01) ==
LOC: LBN 09:26
PROVIDERS: Visit Provider Physician Assistant Medical
DX: Z33.1 Pregnant state, incidental (principal)
CPT/HCPCS: 84702

== ENCOUNTER 2021-03-17 07:04 | Emergency (ER) | payer MEDICAID, SELFPAY ==
[2021-03-17 07:07] VITALS: BP 113/60; PULSE 80; RESP 18; TEMP 36.3; O2SAT 99
--- NOTE | 2021-03-17 07:30 | W.ED.GENAD ---
Discharge Plan Disposition Patient Disposition: HOME Condition: Good Discharge Details Clinical Impression: Miscarriage, threatened, early Primary Care Provider: Veronica Franklin ED Provider: Cedrick Tellez Home Meds and New Rx's Prescriptions: Continued clonazepam 0.5 mg tablet 0.5 mg PO DAILY RF: 0 L norgest/e.estradiol-e.estrad [Ashlyna] 0.15 mg-30 mcg (84)/10 mcg (7) Tablets,Dose Pack,3 Month 1 tab PO DAILY RF: 0 ondansetron HCl [Zofran] 4 mg tablet 4 mg PO Q8H PRNQty: 10 RF: 0 Discharge Instructions Instructions: Miscarriage (ED) Additional Instructions: As we discussed together at this time you have what is called a threatened miscarriage. The bleeding may been secondary to intercourse, or there is a smaller chance that it may have been the early start of a miscarriage. Please avoid any intercourse, or vaginal/pelvic stimulation. Please drink plenty of water, rest, follow-up closely with your OB provider. If you notice any worsening of your symptoms, or any new symptoms such as vomiting, diarrhea, fever, chills, shortness of breath, chest pain, numbness, weakness, or fainting , please return immediately to the emergency department for reevaluation. Please follow up with your primary care provider as soon as possible for reassessment and reevaluation. As always, it was a pleasure participating in your medical care today. Referrals: Veronica Franklin [Primary Care Provider] - Medical Decision Making This is a G3, P2 female who is Rh+, who presents for vaginal bleeding. Patient is 7 weeks . She was on control (Ashlyna), got a urinary tract infection, and then subsequently became while on multiple antibiotic for her UTI. She has not yet had her first visit. Patient states that last night she had intercourse and had some mild pain during intercourse, then this morning she noticed some bleeding and mild cramping. She came to the ER for further evaluation. She describes it as a small amount of pink when she wiped, but no large tissue or clots. No other complaints at this time. No history of previous complication. She denies any history of STDs, overly vigorous intercourse, or other complaints. Physical exam demonstrates no pelvic tenderness, vaginal exam demonstrates closed cervical, no significant blood, no tissue. Bedside limited ultrasound demonstrates no pole, what appears to be tissue, and questionable beating heart. Challenging to adequately ascertain on transabdominal ultrasound at 7 weeks, but there does appear to be consistent intrathoracic movement of the embryo. Unable to measure appropriate heart rate though. At this time patient symptoms are consistent with threatened miscarriage. Recommend pelvic rest, hydration, and close follow-up with OB. Discussed red flags which to return. I have extensively reviewed the treatment plan and discharge instructions with the patient. I have addressed all patient concerns at this time. The patient was made aware of what symptoms to monitor for that would warrant a return to the emergency department. Discussed the plan with the patient, they demonstrate verbal understanding and agreement with our assessment and plan at this time. The documentation in this chart was dictated using [employer] dictation software. Please excuse any dictation errors. HPI General Date/Time Provider Initiated Documentation: 03/17/21 07:07. HPI Narrative: This is a G3, P2 female who is Rh+, who presents for vaginal bleeding. Patient is 7 weeks . She was on control (Ashlyna), got a urinary tract infection, and then subsequently became while on multiple antibiotic for her UTI. She has not yet had her first visit. Patient states that last night she had intercourse and had some mild pain during intercourse, then this morning she noticed some bleeding and mild cramping. She came to the ER for further evaluation. She describes it as a small amount of pink when she wiped, but no large tissue or clots. No other complaints at this time. No history of previous complication. She denies any history of STDs, overly vigorous intercourse, or other complaints. 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 Review of Systems All systems reviewed & are unremarkable except as noted in HPI and below PFSH Medical History Hepatitis C No significant past medical history Opiate dependence Optic neuritis UTI (urinary tract infection) Vaginal discharge Surgical History S/P hernia repair Social History Smoking/Tobacco Use Status: Former Tobacco Use Smoking risk assessment performed?: Yes Alcohol Intake: former Drug use: Daily Substance use type: marijuana Details: clean/sober for 7 years Do you feel safe at home: Yes Do you feel safe in your relationship?: Yes Exam Narrative Exam Narrative: 1.Const: Well-nourished, Well-developed, appearing stated age 2.Eyes: PERRL, no conjunctival injection, and symmetrical lids. 3.ENT: Atraumatic external nose and ears. Moist MM. Neck: Symmetric, trachea midline, No thyromegaly. 4.CVS: +S1/S2, No murmurs or gallops. Peripheral pulses 2+ and equal in all extremities. Brisk capillary refill in all extremities. 5.RESP: Unlabored respiratory effort. Clear to auscultation bilaterally. No wheezes rales or rhonchi 6.GI: Soft, Nontender/Nondistended, No hepatosplenomegaly. No guarding or rebound. No pelvic tenderness. Vaginal exam was performed with female nurse Georgiana at bedside. Cervix appears closed on exam, no significant blood or clots are noted. 7.MSK: Normocephalic/Atraumatic, Extremities w/o deformity or ttp No cyanosis or clubbing, Normal movement of all extremities 8.Skin: Warm, Dry. No rashes or lesions. 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 Sensation grossly intact, no focal neurologic deficits. 10.Psych: (AAO) x3. Appropriate mood and affect Course Vital Signs Vital signs: Vital Signs Temperature 36.3 C L 03/17/21 07:07 Pulse 80 03/17/21 07:07 Respiratory Rate 18 03/17/21 07:07 Blood Pressure 113/60 11/07/21 07:07 Pulse Oximetry 99 03/17/21 07:07 Temperature 36.3 C L 03/17/21 07:07 Temperature Source Temporal Artery Scan 03/17/21 07:07 Pulse 80 03/17/21 07:07 Respiratory Rate 18 03/17/21 07:07 Blood Pressure 113/60 03/17/21 07:07 Blood Pressure Position Sitting 03/17/21 07:07 Pulse Oximetry 99 03/17/21 07:07 Oxygen Delivery Method Room Air 03/17/21 07:07 Oxygen Flow Rate 0 03/17/21 07:07
[2021-03-17 07:35] VITALS: BP 118/67; PULSE 63; RESP 18; O2SAT 98
== END 2021-03-17 07:41 | disposition home or self-care (01) ==
PROVIDERS: Emergency Provider Student in an Organized Health Care Education/Training Program
DX: O20.0 Threatened abortion (principal); Z3A.01 Less than 8 weeks gestation of pregnancy
CPT/HCPCS: 99284

== ENCOUNTER 2021-04-15 16:02 | Outpatient (CLI) | payer MEDICAID, SELFPAY ==
[2021-04-15 16:38] LABS: Abs Immature Grans 0.04 10^3/uL (0.0-0.06); Absolute Basophil Count 0.03 10^3/uL (0.0-0.2); Absolute Eosinophil Count 0.07 10^3/uL (0.0-0.7); Absolute Lymphocyte Count 2.22 10^3/uL (1.2-3.4); Absolute Monocyte Count 0.61 10^3/uL (0.1-0.8); Absolute Neutrophil Count 6.48 10^3/uL (1.2-6.7); Basophils % 0.3; Eosinophils % 0.7; HGB 11.4 g/dL (11.2-15.7); Immature Grans % 0.4; Lymphocytes % 23.5; MCH 29.6 pg (27.0-33.0); MCHC 34.5 % (32.0-36.0); MCV 85.7 fL (80-95); MPV 9.3 fL (8.0-11.0); Monocytes % 6.5; Neutrophils % 68.6; Nucleated RBC 0 %; Platelet Count 301 10^3/uL (130-400); RBC 3.85 10^6/uL (3.93-5.22); RDW-SD 40.5 fL; WBC 9.45 10^3/uL (4.4-10.8)
[2021-04-15 17:49] LABS: TSH (W/Ref FT4) 0.23 uIU/mL (0.36-3.74)
[2021-04-15 21:21] LABS: FREE T4 0.88 ng/dL (0.76-1.46)
[2021-04-16 07:31] LABS: Kit/Specimen SENT
[2021-04-17 11:47] LABS: Hepatitis C Ab w Rflx HCV PCR Reactive (Negative)
[2021-04-17 11:48] LABS: HIV-1/2 Ag & Ab Screen Negative (Negative)
[2021-04-17 12:17] LABS: Hepatitis B Surface Ag Negative (Negative)
[2021-04-17 13:14] LABS: Syphilis Total Ab w/Reflex Nonreactive (Nonreactive)
[2021-04-17 14:01] LABS: Varicella IgG Antibody Positive (See Note)
[2021-04-17 14:07] LABS: Rubella IgG Ab (UVM) Positive (See Note)
[2021-04-18 12:52] LABS: HCV RNA Qualitative Undetected (Undetected)
[2021-04-23 13:59] LABS: Result Summary NEGATIVE; Specimen WB Whole Blood
== END 2021-04-15 16:03 | disposition home or self-care (01) ==
LOC: LBO 16:02
PROVIDERS: Visit Provider Advanced Practice Midwife
DX: Z34.91 Encounter for supervision of normal pregnancy, unspecified, first trimester (principal)
CPT/HCPCS: 36415; 86787; 86803; 86850; 86900; 86901; 87340; 87389; 87522; 81220; 84439; 84443; 85025; 86762; 86780

== ENCOUNTER 2021-04-15 16:10 | Outpatient (REF) | payer MEDICAID, SELFPAY ==
--- NOTE | 2021-04-15 15:00 | PAPFT_PTH ---
PATIENT: Robyn Nina LOC: [facility] U#:[id number] AGE/SX: 30/F ROOM: RE04/15/[address]: Little Richardson CNM : 1990 BED: DIS: 04/15/2021 SPEC #: [id number] RECD: 04/15/21 18:39 STATUS: JIMENEZ REQ #: [id number] DELROY: 04/15/21 15:[address]: Little Richardson DEPT: [facility] Cytology RECD BY: Lisbet Douglas Tissues: 1 - CX/ENDOCX FOR PAP SMEARS Procedures: PAP THIN PREP/UVM Screening Comments: [id number]
[2021-04-15 17:39] LABS: *AMPHETAMINES SCREEN URINE Negative (Negative); *BARBITURATES SCREEN URINE Negative (Negative); *BENZODIAZEPINES SCREEN URINE Negative (Negative); Cannabinoids THC Positive (Negative); Cocaine Screen,Urine Negative (Negative); METHADONE URINE SCREEN Negative (Negative); OPIATES URINE SCREEN Negative (Negative)
[2021-04-15 17:49] LABS: Tricyclic Antidepressants Negative (Negative)
[2021-04-17 14:27] LABS: Chlamydia Result Negative (Negative); GC Result Negative (Negative)
[2021-04-20 12:31] LABS: Buprenorphine Negative ng/mL (Cutoff: 5.0); Norbuprenorphine Negative ng/mL (Cutoff: 2.5)
== END 2021-04-15 16:11 | disposition home or self-care (01) ==
LOC: LBN 16:10
PROVIDERS: Visit Provider Advanced Practice Midwife
DX: Z12.4 Encounter for screening for malignant neoplasm of cervix (principal); Z11.3 Encounter for screening for infections with a predominantly sexual mode of transmission; Z34.91 Encounter for supervision of normal pregnancy, unspecified, first trimester; R87.612 Low grade squamous intraepithelial lesion on cytologic smear of cervix (LGSIL)
CPT/HCPCS: 80307; 87491; 87591; 88142; 87086

== ENCOUNTER 2021-05-13 17:37 | Outpatient (REF) | payer MEDICAID, SELFPAY | END 2021-05-13 17:38 | disposition home or self-care (01) | LOC: LBN 17:37 | PROVIDERS: Visit Provider Advanced Practice Midwife | DX: R30.0 Dysuria (principal) | CPT/HCPCS: 87086 ==

== ENCOUNTER 2021-06-20 01:57 | Outpatient (CLI) | payer MEDICAID, SELFPAY ==
--- NOTE | 2021-06-20 07:15 | DI.US_ITS ---
Exam(s) US OB 2-3 TRIMESTER EXAM: US OB 2-3 TRIMESTER CLINICAL HISTORY: anatomy scan,z34.92. TECHNIQUE: Transabdominal obstetrical ultrasound was performed. COMPARISON: US US RENAL from 01/23/2021 FINDINGS: There is a single viable intrauterine gestation with cardiac activity identified-126 bpm. Amniotic fluid: There is a normal amount of amniotic fluid. Placental location: The placenta is posterior grade 2,with no evidence of placenta previa.Distance fr om the tip of the placenta to the internal cervical os is 3.6 cm on today's study ANATOMY: A 3 vessel umbilical cord is seen. A four-chamber cardiac view was obtained. Right and left ventricular outflow tracts were imaged. There are no obvious abnormalities of the spinal column evident. There is no obvious abnormal ity of the anterior abdominal wall. stomach and urinary bladder are identified and there is no evidence of hydronephrosis. No abnormalities of the upper lip region are identified. No evidence of choroid plexus cysts i n the brain. Dating parameters place this at approximately 19 weeks and 2 days gestational age. BPD measures 19 weeks and 1 day HC measures 19 weeks and 4 days AC measures 19 weeks and 1 day FL measures 19 weeks and 2 days Estimated weight is 281 gm-0 pounds, 10 ounces. Fetus is at the 27th percentile on the Hadlock scale. IMPRESSION:: Single viable intrauterine gestation which is approximately 19 weeks and 2 days gestati onal age, implying an GRAZYNA of November 12, 2021. There are no obvious anomalies evident on today's study. The placenta is posterior with no evidence of placenta previa. There is a normal amount of amniotic fluid. DATA REPOSITORY:
== END 2021-06-20 02:17 ==
PROVIDERS: Visit Provider Advanced Practice Midwife
DX: Z34.92 Encounter for supervision of normal pregnancy, unspecified, second trimester (principal); Z3A.19 19 weeks gestation of pregnancy
CPT/HCPCS: 76805

== ENCOUNTER 2021-06-20 02:39 | Outpatient (CLI) | payer MEDICAID, SELFPAY ==
[2021-06-20 14:29] LABS: TSH (W/Ref FT4) 0.25 uIU/mL (0.36-3.74)
[2021-06-20 14:59] LABS: FREE T4 0.74 ng/dL (0.76-1.46)
== END 2021-06-20 02:40 | disposition home or self-care (01) ==
LOC: LBO 02:39
PROVIDERS: Visit Provider Advanced Practice Midwife
DX: R79.89 Other specified abnormal findings of blood chemistry (principal); Z34.92 Encounter for supervision of normal pregnancy, unspecified, second trimester
CPT/HCPCS: 36415; 84439; 84443

== ENCOUNTER 2021-07-22 15:55 | Outpatient (CLI) | payer MEDICAID, SELFPAY ==
[2021-07-22 16:21] VITALS: BP 109/55; PULSE 73; RESP 18; TEMP 36.8
[2021-07-22 16:22] VITALS: BP 109/55; PULSE 73; TEMP 36.8
--- NOTE | 2021-07-22 16:50 | PDOC.NST_ITS ---
Date of service: 07/22/21 Time of Service: 16:40 NST Evaluation Reason for NST Reasons for Nonstress Test: OTHER, SEE COMMENT Reason for NST Other: abdominal/low back discomfort Gestational Age Gestational Age in Weeks and Days: 24 Weeks and 1Days Test and Monitor Explained Test/Monitor Explained: Test Explained, Monitor Explained and Patient Verbalized Understanding Vital Signs Blood Pressure: 109/55 Pulse: 73 Temperature: 98.2 F Urine Results Urine Protein: Negative Urine Ketones: Negative Urine Glucose: Negative Urine Blood: Negative NST Information Date on Monitor: 07/22/21 Time on Monitor: 16:14 Date off Monitor: 07/22/21 Time off Monitor: 16:37 Total Time on Monitor: 23 NST Interventions: None NST Evaluation Patient States Movement: Present FHR Baseline: 150 Variability: Minimal <6 bpm Accelerations: 10x10 Decelerations: None NST Results: Reactive Note NST Note Note: 24w 1d here for concern related to celestino granado contractions and mid to lower back pain today. States she is not having bleeding or LOF. Baby is very active. No cramping. Occasional lower abdominal pain. FHR is within normal range and has accelerations with patient's marking movement. No evidence of labor, patient is reassured. Will discharge to home We discussed normal discomforts of and also warning signs to call and report. Urine culture obtained today and we will call her with any abnormal results. She has appointment at [facility] in the next 2 weeks for follow up. Patient is comfortable with plan and denies further concerns. Is not having pain while she was here resting. RICARDA NST Reviewed and Verified by: Eneida Moe
[2021-07-22 16:51] VITALS: BP 109/55; PULSE 73; TEMP 36.8
== END 2021-07-22 16:45 | disposition home or self-care (01) ==
LOC: BCD 15:56 → OBS 16:16
PROVIDERS: Visit Provider Advanced Practice Midwife
DX: O47.02 False labor before 37 completed weeks of gestation, second trimester (principal); O99.891 Other specified diseases and conditions complicating pregnancy; M54.50 Low back pain, unspecified
CPT/HCPCS: 59025; 87086

== ENCOUNTER 2021-08-16 02:45 | Outpatient (CLI) | payer MEDICAID, SELFPAY ==
[2021-08-16 10:01] LABS: Glucose,1 Hr (Glucola) 82 mg/dL (80-140)
[2021-08-16 10:05] LABS: HCT 32.3 % (36.0-46.0); HGB 10.3 g/dL (11.2-15.7); MCH 28.2 pg (27.0-33.0); MCHC 31.9 % (32.0-36.0); MCV 88.5 fL (80-95); MPV 9.3 fL (8.0-11.0); Platelet Count 254 10^3/uL (130-400); RBC 3.65 10^6/uL (3.93-5.22); RDW 12.8 % (11.7-14.6); RDW-SD 41.8 fL; WBC 6.18 10^3/uL (4.4-10.8)
[2021-08-16 10:46] LABS: TSH (W/Ref FT4) 0.31 uIU/mL (0.36-3.74)
[2021-08-16 11:03] LABS: FREE T4 0.75 ng/dL (0.76-1.46)
== END 2021-08-16 02:46 | disposition home or self-care (01) ==
LOC: LBO 02:45
PROVIDERS: Advanced Practice Midwife; Visit Provider Advanced Practice Midwife
DX: O99.281 Endocrine, nutritional and metabolic diseases complicating pregnancy, first trimester (principal); Z34.01 Encounter for supervision of normal first pregnancy, first trimester
CPT/HCPCS: 36415; 82950; 85027; 84439; 84443

== ENCOUNTER 2021-09-03 01:26 | Outpatient (CLI) | payer MEDICAID, SELFPAY ==
--- NOTE | 2021-09-03 07:30 | DI.US_ITS ---
Exam(s) US OB BILL WEIGHT EXAM: US OB BILL WEIGHT CLINICAL HISTORY: covid during and f/u placenta location,U07.1,O44.42. TECHNIQUE: Transabdominal obstetrical ultrasound performed. COMPARISON: US US OB 2-3 TRIMESTER from 06/20/2021 FINDINGS: Transabdominal obstetrical ultrasound performed. FINDINGS: Number of fetuses: One. position: Cephalic. Placental location: There is a grade 2 posterior placenta. The placental tip is 3.7 cm from the inte rnal os. BIOMETRIC DATA: BPD: 75 mm = 30 weeks 1 day HC: 271 mm = 29 weeks 4 days AC: 262 mm = 30 weeks 3 days FL: 58 mm = 30 weeks 3 days EFW: 1543 grms 37% Composite Age: 30 weeks 1 day EDC: 11/11/2021 Heart Rate: 131BPM Amniotic fluid index: 11.2 cm. Visually, amount of fluid is within normal limits. IMPRESSION: 1. Single live intrauterine gestation as above. 2. Estimated weight is 1543gms. This is a 37th percentile. 3. Amniotic fluid index is 11.2 cm. Visually within normal limits. DATA REPOSITORY:
== END 2021-09-03 01:46 ==
PROVIDERS: Visit Provider Advanced Practice Midwife
DX: O44.43 Low lying placenta NOS or without hemorrhage, third trimester (principal); O98.513 Other viral diseases complicating pregnancy, third trimester; U07.1 COVID-19; Z3A.30 30 weeks gestation of pregnancy
CPT/HCPCS: 76816

== ENCOUNTER 2021-09-10 18:07 | Outpatient (REF) | payer MEDICAID, SELFPAY | END 2021-09-10 18:08 | disposition home or self-care (01) | LOC: LBN 18:07 | PROVIDERS: Visit Provider Advanced Practice Midwife | DX: N89.8 Other specified noninflammatory disorders of vagina (principal) | CPT/HCPCS: 87480; 87510; 87660 ==

== ENCOUNTER 2021-10-01 08:02 | Emergency (ER) | payer MEDICAID, SELFPAY ==
[2021-10-01] VITALS (17 sets, daily range): BP systolic 89–130; BP diastolic 41–69; PULSE 63–90; RESP 9–20; TEMP 37.1; O2SAT 96–100
--- NOTE | 2021-10-01 08:35 | W.ED.GENAD ---
Discharge Plan Disposition Patient Disposition: HOME Condition: Stable Discharge Details Clinical Impression: Influenza A, Hypomagnesemia, Acute hypokalemia Primary Care Provider: Unknown,Unknown ED Provider: Brian Young Home Meds and New Rx's Prescriptions: New oseltamivir [Tamiflu] 75 mg capsule 75 mg PO BID 5 Days Qty: 9 0RF ondansetron 4 mg tablet,disintegrating 4 mg PO Q8H PRN (Reason: nausea and vomiting) Qty: 15 0RF Continued Classic 28 mg iron- 800 mcg tablet PO DAILY ferrous sulfate 325 mg (65 mg iron) tablet,delayed release (DR/EC) 325 mg PO DAILY Qty: 30 3RF docusate sodium [Colace] 100 mg capsule 100 mg PO BID Qty: 90 0RF clonazepam 0.5 mg tablet 0.5 mg PO DAILY Label Comments: TAKE 1 TABLET BY MOUTH TWICE DAILY Held fdciygsncv-ebjwnyscjiuzk-owrj [Fioricet] 50-300-40 mg capsule 1 cap PO Q4H PRN (Reason: pain) Qty: 10 0RF Hold Instructions: Resume on 11/13/21. Discharge Instructions Instructions: Hypokalemia (ED), Influenza (ED), Hypomagnesemia (ED) Additional Instructions: Please contact your primary care physician and financial services sales representative to arrange follow-up. Return to the ER immediately for any worsening or new concerning symptoms. Referrals: [facility] [Provider Group] Discharge Data Discharge Date/Time-TO BE ENTERED AT DEPARTURE: 10/01/21 11:12 Medical Decision Making 919 --31-year-old at 34 weeks here with cough, sore throat, arthralgias, headache, subjective fever. No focal bacterial infection. Patient does have cough with fine bilateral rales but is saturating well in no respiratory distress. Symptoms concerning for viral illness. Consider COVID and influenza. Patient does appear mildly dehydrated. I will give IV fluid bolus. She does have ongoing nausea which I will treat with Zofran. -- Patient has heart rate 140s. -- Patient was reassessed and that she is feeling better after IV fluid. Labs reviewed and hypomagnesemia and hypokalemia noted. Patient received magnesium 1 g IV and potassium 20 mill equivalent now. Anemia noted - no significant change from recent prior. Patient is negative for COVID. She is positive for influenza A. She is within therapeutic window for antiviral. I will initiate treatment with Tamiflu. I called and spoke with the patient's OB on-call, Dr. Dominguez, discussed ED presentation course, she agrees and does not recommend any additional diagnostics at this time. Lab Data Lab results reviewed: Yes I reviewed the patient's lab results. Labs: Laboratory Tests Range/Units 10/01/21 10/01/21 10/01/21 08:45 08:45 09:00 WBC (4.4-10.8) 10^3/uL 5.98 RBC (3.93-5.22) 10^6/uL 3.54 L Hgb (11.2-15.7) g/dL 9.7 L Hct (36.0-46.0) % 30.0 L MCV (80-95) fL 85 MCH (27.0-33.0) pg 27.4 MCHC (32.0-36.0) % 32.3 RDW (11.7-14.6) % 12.6 Plt Count (130-400) 10^3/uL 196 MPV (8.0-11.0) fL 9.8 Immature Gran % 0.5 Neutrophils % 81.3 Lymphocytes % 8.2 Monocytes % 9.7 Eosinophils % 0.0 Basophils % 0.3 Nucleated RBC % (0.0-0.3) % 0.0 Absolute Neutrophils (1.2-6.7) 10^3/uL 4.86 Absolute Lymphocytes (1.2-3.4) 10^3/uL 0.49 L Absolute Monocytes (0.1-0.8) 10^3/uL 0.58 Absolute Eosinophils (0.0-0.7) 10^3/uL 0.00 Absolute Basophils (0.0-0.2) 10^3/uL 0.02 Sodium (136-145) mmol/L 136 Potassium (3.5-5.1) mmol/L 3.3 L Chloride (98-107) mmol/L 104 Carbon Dioxide (21.0-32.0) mmol/L 20.4 L Anion Gap (3-11) mmol/L 11.6 H BUN (7-18) mg/dL 6 L Creatinine (0.55-1.02) mg/dL 0.7 Estimated GFR/1.73 m2 (mL/min/1.73m2) >= 60.00 Glucose (74-106) mg/dL 84 Calcium (8.5-10.1) mg/dL 8.5 Magnesium (1.8-2.4) mg/dL 1.6 L Total Bilirubin (0.2-1.0) mg/dL 0.2 AST (15-37) U/L 19 ALT (14-59) U/L 22 Alkaline Phosphatase (46-116) U/L 130 H Total Protein (6.4-8.2) g/dL 6.8 Albumin (3.4-5.0) g/dL 3.1 L Urine Color (Yellow) Urine Clarity (Clear) Urine pH (5-8) Ur Specific [place] (1.005-1.025) Urine Protein (Negative) mg/dL Urine Ketones (Negative) mg/dL Urine Blood (Negative) Urine Nitrite (Negative) Urine Bilirubin (Negative) Urine Urobilinogen (Up TO 0.2) EU/dL Ur Leukocyte Esterase (Negative) Urine RBC (0-2) HPF Urine WBC (0-5) HPF Ur Epithelial Cells (Negative) HPF Urine Crystals (Negative) HPF Urine Bacteria (Negative) HPF Urine Casts (Negative) LPF Urine Mucus (Negative) Ur Culture Indicated? Urine Glucose (Negative) mg/dL COVID-19 Source Nasopharynx SARS-CoV-2 (PCR) (Negative) Negative Influenza Type A (PCR) (Negative) Positive A Influenza Type B (PCR) (Negative) Negative RSV (PCR) (Negative) Negative Range/Units 10/01/21 09:18 WBC (4.4-10.8) 10^3/uL RBC (3.93-5.22) 10^6/uL Hgb (11.2-15.7) g/dL Hct (36.0-46.0) % MCV (80-95) fL MCH (27.0-33.0) pg MCHC (32.0-36.0) % RDW (11.7-14.6) % Plt Count (130-400) 10^3/uL MPV (8.0-11.0) fL Immature Gran % Neutrophils % Lymphocytes % Monocytes % Eosinophils % Basophils % Nucleated RBC % (0.0-0.3) % Absolute Neutrophils (1.2-6.7) 10^3/uL Absolute Lymphocytes (1.2-3.4) 10^3/uL Absolute Monocytes (0.1-0.8) 10^3/uL Absolute Eosinophils (0.0-0.7) 10^3/uL Absolute Basophils (0.0-0.2) 10^3/uL Sodium (136-145) mmol/L Potassium (3.5-5.1) mmol/L Chloride (98-107) mmol/L Carbon Dioxide (21.0-32.0) mmol/L Anion Gap (3-11) mmol/L BUN (7-18) mg/dL Creatinine (0.55-1.02) mg/dL Estimated GFR/1.73 m2 (mL/min/1.73m2) Glucose (74-106) mg/dL Calcium (8.5-10.1) mg/dL Magnesium (1.8-2.4) mg/dL Total Bilirubin (0.2-1.0) mg/dL AST (15-37) U/L ALT (14-59) U/L Alkaline Phosphatase (46-116) U/L Total Protein (6.4-8.2) g/dL Albumin (3.4-5.0) g/dL Urine Color (Yellow) Yellow Urine Clarity (Clear) Clear Urine pH (5-8) 6.0 Ur Specific [place] (1.005-1.025) >= 1.030 H Urine Protein (Negative) mg/dL Trace H Urine Ketones (Negative) mg/dL >=160 H Urine Blood (Negative) Trace-intact H Urine Nitrite (Negative) Negative Urine Bilirubin (Negative) Negative Urine Urobilinogen (Up TO 0.2) EU/dL 0.2 Ur Leukocyte Esterase (Negative) Negative Urine RBC (0-2) HPF 0-2 Urine WBC (0-5) HPF Negative Ur Epithelial Cells (Negative) HPF Few Urine Crystals (Negative) HPF Negative Urine Bacteria (Negative) HPF Negative Urine Casts (Negative) LPF 0-2 Hyaline Urine Mucus (Negative) Moderate Ur Culture Indicated? No Urine Glucose (Negative) mg/dL Negative COVID-19 Source SARS-CoV-2 (PCR) (Negative) Influenza Type A (PCR) (Negative) Influenza Type B (PCR) (Negative) RSV (PCR) (Negative) HPI General Mode of arrival: ambulatory. Date/Time Provider Initiated Documentation: 10/01/21 08:09. Limitations to Documentation: no limitations. Information obtained by: patient. HPI Narrative: 31yo female, G4, P2 at 34 weeks, here with chief complaint of general illness. Patient notes she has not felt well since yesterday morning. She notes she has dry cough, sore throat, headache, nausea and vomiting, dry heaving, myalgias and subjective fever. Patient had negative antigen COVID test yesterday. Patient denies associate abdominal pain. No vaginal bleeding or abnormal discharge. Symptoms are moderate to severe. No modifiers. Related Data Home Medications Medication Instructions Recorded Confirmed clonazepam 0.5 mg tablet 0.5 mg PO DAILY 03/17/21 10/01/21 vits no.126-ferrous fum tab PO DAILY 05/13/21 09/30/21 28 mg iron-folic acid 800 mcg tablet (Classic ) docusate sodium 100 mg capsule 100 mg PO BID #90 caps 07/16/21 10/01/21 (Colace) ferrous sulfate 325 mg (65 mg 325 mg PO DAILY #30 tabs 08/30/21 10/01/21 iron) tablet,delayed release fobayvavwi-xfasmvhhtjeox-mrkshptt 1 cap PO Q4H PRN pain #10 caps 09/17/21 10/01/21 50 mg-300 mg-40 mg capsule (Fioricet) ondansetron 4 mg disintegrating 4 mg PO Q8H PRN nausea and 10/01/21 tablet vomiting #15 tabs oseltamivir 75 mg capsule (Tamiflu) 75 mg PO BID 5 days #9 caps 10/01/21 Previous Rx's Medication Instructions Recorded docusate sodium 100 mg capsule 100 mg PO BID #90 caps 07/16/21 (Colace) ferrous sulfate 325 mg (65 mg 325 mg PO DAILY #30 tabs 08/30/21 iron) tablet,delayed release xyqywzjhrc-jugxmnocpnxye-bugxoppp 1 cap PO Q4H PRN pain #10 caps 09/17/21 50 mg-300 mg-40 mg capsule (Fioricet) ondansetron 4 mg disintegrating 4 mg PO Q8H PRN nausea and 10/01/21 tablet vomiting #15 tabs oseltamivir 75 mg capsule (Tamiflu) 75 mg PO BID 5 days #9 caps 10/01/21 Allergies Allergy/AdvReac Type Severity Reaction Status Date / Time No Known Allergies Allergy Verified 10/01/21 08:16 General Stated Complaint: GenMedical SUDHA: 3 Review of Systems All systems reviewed & are unremarkable except as noted in HPI and below Constitutional Constitutional: Reports as per HPI, Reports fever(s) and Reports lethargy Cardiovascular Cardiovascular: Denies chest pain and Denies dyspnea Respiratory Respiratory: Reports cough and Denies dyspnea Musculoskeletal Musculoskeletal: Reports as per HPI PFSH All Active Problems Influenza A (Acute) Hypomagnesemia (Acute) Acute hypokalemia (Acute) Vaginal irritation (Acute) Low-lying placenta in second trimester (Acute) COVID-19 affecting in second trimester (Acute) At home COVID test positive 06/02/21, not vaccinated, mild symptoms Low TSH level (Acute) Dysuria (Acute) LGSIL (low grade squamous intraepithelial dysplasia) (Acute) 04/15/2021 screening Pap LGSIL. 05/01/2021. Normal appearing colposcopy. No biopsies taken. 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) History of opioid abuse (Acute) Anxiety disorder affecting , antepartum (Acute) History of hepatitis C (Acute) (Acute) Shortness of breath (Acute) S/P hernia repair (Acute) Medical History Abdominal pain Abdominal pain during Hepatitis C Miscarriage, threatened, early No significant past medical history Opiate dependence Optic neuritis Urinary frequency UTI (urinary tract infection) Vaginal discharge Surgical History H/O umbilical hernia repair Social History Smoking/Tobacco Use Status: Former Tobacco Use Smoking risk assessment performed?: Yes Alcohol Intake: former Drug use: Daily Substance use type: marijuana Details: clean/sober for 7 years Do you feel safe at home: Yes Do you feel safe in your relationship?: Yes History History 4 Para 2 Hx # Term Pregnancies 2 Multiple births 0 Hx # Pregnancies 0 Ectopic pregnancies 0 AB induced 1 Hx Number of Living Children 2 AB spontaneous 0 Past Pregnancies Del. Date GA/Weeks # Outcome Route Wgt Sex Labor Lgth Anesthesia Location Prov Complic 04/26/11 40 No Successful vaginal 3345.244 g Male 36 hrs [facility] - [facility] 09/13/14 41 No Successful vaginal 3600.389 g Female 12 hrs [facility] - MD service Delivery Date: 04/26/11 Last Updated by: Susan Richardson IOL for PROM at term, 36 hrs labor w/epidural, GBS negative. Nml , baby w/GBS meningitis at 3 weeks of age, is ok now. Ronald Delivery Date: 09/13/14 Last Updated by: Susan Richardson IOL for postdates; epidural. GBS neg. Nml Carabella Exam Const General: cooperative and no acute distress HENMT Head: normocephalic and atraumatic Mouth: mucous membranes dry Throat: posterior oropharynx normal Eyes Conjunctivae: normal conjunctivae Sclera: normal sclerae EOM: EOM intact bilaterally Neck Neck: trachea midline and supple Resp Auscultation: clear to auscultation bilaterally, rales bilaterally (fine), no rhonchi and no wheezes Cardio Jugular venous pressure: no JVD Rate: regular rate and not tachycardic Rhythm: regular rhythm GI Palpation: soft, not firm, no guarding, no masses, not rigid and nontender Skin General skin exam: no rashes or lesions noted Neuro General: patient alert, patient awake and tone normal Cognition: normal cognition Extrem General: no edema Psych Appearance: grossly normal Mental Status: mental status grossly normal Speech and Movement: speech and movement normal Course Vital Signs Vital signs: Vital Signs Temperature 37.1 C 10/01/21 08:11 Pulse 89 10/01/21 08:11 Respiratory Rate 16 10/01/21 08:11 Blood Pressure 110/66 10/01/21 08:11 Pulse Oximetry 99 10/01/21 08:11 Temperature 37.1 C 10/01/21 08:11 Temperature Source Oral 10/01/21 08:11 Pulse 89 10/01/21 08:11 Respiratory Rate 16 10/01/21 08:11 Respiratory Effort 10/01/21 08:11 Blood Pressure 110/66 10/01/21 08:11 Blood Pressure Position Supine 10/01/21 08:11 Pulse Oximetry 99 10/01/21 08:11 Oxygen Delivery Method Room Air 10/01/21 08:11 Oxygen Flow Rate 0 10/01/21 08:11 Pain Level 9 10/01/21 08:11
[2021-10-01] MEDS: Acetaminophen 325 MG TAB 650 MG PO (08:45)
[2021-10-01 08:52] LABS: Abs Immature Grans 0.03 10^3/uL (0.0-0.06); Absolute Basophil Count 0.02 10^3/uL (0.0-0.2); Absolute Lymphocyte Count 0.49 10^3/uL (1.2-3.4); Absolute Monocyte Count 0.58 10^3/uL (0.1-0.8); Absolute Neutrophil Count 4.86 10^3/uL (1.2-6.7); Basophils % 0.3; HGB 9.7 g/dL (11.2-15.7); Immature Grans % 0.5; Lymphocytes % 8.2; MCH 27.4 pg (27.0-33.0); MCHC 32.3 % (32.0-36.0); MCV 85 fL (80-95); MPV 9.8 fL (8.0-11.0); Monocytes % 9.7; Neutrophils % 81.3; Platelet Count 196 10^3/uL (130-400); RBC 3.54 10^6/uL (3.93-5.22); RDW 12.6 % (11.7-14.6); RDW-SD 38.6 fL; WBC 5.98 10^3/uL (4.4-10.8)
[2021-10-01] MEDS: Lactated Ringers 1,000 ML 1000 ML IV (09:00)
[2021-10-01] MEDS: Ondansetron 4 MG/2 ML VIAL IVP (09:00)
[2021-10-01 09:09] LABS: ALT 22 U/L (14-59); AST 19 U/L (15-37); Albumin 3.1 g/dL (3.4-5.0); Alkaline Phosphatase 130 U/L (46-116); Anion Gap 11.6 mmol/L (3-11); BUN 6 mg/dL (7-18); Bilirubin, Total 0.2 mg/dL (0.2-1.0); CO2 20.4 mmol/L (21.0-32.0); CREATININE 0.7 mg/dL (0.55-1.02); Calcium 8.5 mg/dL (8.5-10.1); Chloride 104 mmol/L (98-107); Glucose 84 mg/dL (74-106); Magnesium 1.6 mg/dL (1.8-2.4); Potassium 3.3 mmol/L (3.5-5.1); Sodium 136 mmol/L (136-145); Total Protein 6.8 g/dL (6.4-8.2)
[2021-10-01 09:24] LABS: Bilirubin Negative (Negative); Blood Trace-intact (Negative); Clarity Clear (Clear); Glucose Negative (Negative); Ketones >=160 mg/dL (Negative); Leukocyte Esterase Negative (Negative); Nitrite Negative (Negative); Specific Gravity >= 1.030 (1.005-1.025); Urobilinogen 0.2 EU/dL (Up TO 0.2)
[2021-10-01 09:34] LABS: Bacteria Negative HPF (Negative); C & S Indicated? No; Casts 0-2 Hyaline LPF (Negative); Crystals Negative HPF (Negative); Epithelial Cells Few HPF (Negative); Mucus Moderate (Negative); RBC 0-2 HPF (0-2); WBC Negative HPF (0-5)
[2021-10-01 09:47] LABS: COVID-19 PCR Negative (Negative); Influenza A PCR Positive (Negative); Influenza B PCR Negative (Negative); RSV PCR Negative (Negative)
[2021-10-01 09:50] LABS: Source Nasopharynx
[2021-10-01] MEDS: MAGNESIUM SULFATE 1 GM/100 ML BAG IVPB (09:59)
[2021-10-01] MEDS: Potassium Chloride 20 MEQ TABCR PO (10:41)
[2021-10-01] MEDS: Oseltamivir 75 MG CAP PO (10:41)
[2021-10-01] MEDS: Acetaminophen 325 MG TAB PO (11:12)
== END 2021-10-01 11:12 | disposition home or self-care (01) ==
PROVIDERS: Emergency Provider Student in an Organized Health Care Education/Training Program
DX: O26.893 Other specified pregnancy related conditions, third trimester (principal); J10.1 Influenza due to other identified influenza virus with other respiratory manifestations; E83.42 Hypomagnesemia; E87.6 Hypokalemia; Z3A.34 34 weeks gestation of pregnancy
CPT/HCPCS: 36415; 80053; 87637; 96361; 96365; 96375; 99283; 99284; 81003; 81015; 83735; 85025; J2405; J3475

== ENCOUNTER 2021-10-14 10:51 | Outpatient (CLI) | payer MEDICAID, SELFPAY ==
[2021-10-14 13:02] LABS: *AMPHETAMINES SCREEN URINE Negative (Negative); *BARBITURATES SCREEN URINE Negative (Negative); *BENZODIAZEPINES SCREEN URINE Negative (Negative); Cannabinoids THC Positive (Negative); Cocaine Screen,Urine Negative (Negative); METHADONE URINE SCREEN Negative (Negative); OPIATES URINE SCREEN Negative (Negative)
[2021-10-14 13:04] LABS: Tricyclic Antidepressants Negative (Negative)
--- NOTE | 2021-10-15 08:01 | W.OBNST ---
Date of service: 10/14/21 Time of Service: 11:15 NST Evaluation Reason for NST Reasons for Nonstress Test: FALSE LABOR Gestational Age Gestational Age in Weeks and Days: 36 Weeks and 1Days Test and Monitor Explained Test/Monitor Explained: Test Explained, Monitor Explained and Patient Verbalized Understanding NST Information Date on Monitor: 10/14/21 Time on Monitor: 10:41 Date off Monitor: 10/14/21 Time off Monitor: 11:01 Total Time on Monitor: 20 NST Interventions: None NST Evaluation Patient States Movement: Present FHR Baseline: 145 Variability: Moderate 6-25 bpm Accelerations: 15x15 Decelerations: None NST Results: Reactive Note NST Note Note: NST is reactive and reassuring. Will return in 1 week. RICARDA NST Reviewed and Verified by: Eneida Moe
[2021-10-17 15:21] LABS: Buprenorphine Negative ng/mL (Cutoff: 5.0); Norbuprenorphine Negative ng/mL (Cutoff: 2.5)
== END 2021-10-14 11:10 | disposition home or self-care (01) ==
LOC: BCD 10:56
PROVIDERS: Visit Provider Advanced Practice Midwife
DX: O47.03 False labor before 37 completed weeks of gestation, third trimester
CPT/HCPCS: 59025; 80307; 87081

== ENCOUNTER 2021-10-17 14:16 | Outpatient (CLI) | payer MEDICAID, SELFPAY ==
[2021-10-17 14:39] VITALS: TEMP 36.8
[2021-10-17 14:59] VITALS: BP 110/61; PULSE 82
[2021-10-17 16:01] LABS: ROM Plus Negative
--- NOTE | 2021-10-17 16:41 | PDOC.NST_ITS ---
Date of service: 10/17/21 Time of Service: 16:42 NST Evaluation Reason for NST Reasons for Nonstress Test: LABOR Gestational Age Gestational Age in Weeks and Days: 36 Weeks and 4Days Test and Monitor Explained Test/Monitor Explained: Test Explained, Monitor Explained and Patient Verbalized Understanding Vital Signs Blood Pressure: 110/61 Pulse: 82 Temperature: 98.2 F Urine Results Urine Protein: Negative Urine Ketones: Negative Urine Glucose: Negative Urine Blood: Negative NST Information Date on Monitor: 10/17/21 Time on Monitor: 14:25 Date off Monitor: 10/17/21 Time off Monitor: 16:00 Total Time on Monitor: 95 NST Interventions: PO Hydration NST Evaluation Patient States Movement: Present FHR Baseline: 105 Variability: Moderate 6-25 bpm Accelerations: 15x15 Decelerations: None NST Results: Reactive Note NST Note Note: Robyn has noticed small amounts of fluid leaking when she coughs or sneezes. She came in for NST and ROM plus. low baseline HR noted on NST. No contractions noted. Robyn takes 1 mg clonazepam daily in the morning and uses marijuana daily. She had been previously advised to cut back or discontinue marijuana and to decrease her clonazepam dose if possible. RTO for appointment at [facility]. Sign sof labor reviewed. NST Reviewed and Verified by: Eneida Moya
[2021-10-17 16:44] VITALS: BP 110/61; PULSE 82; TEMP 36.8
== END 2021-10-17 16:10 | disposition home or self-care (01) ==
LOC: BCD 14:18 → OBS 14:36
PROVIDERS: Visit Provider Advanced Practice Midwife
DX: O60.03 Preterm labor without delivery, third trimester (principal)
CPT/HCPCS: 59025; 84112

== ENCOUNTER 2021-10-27 21:22 | Outpatient (CLI) | payer MEDICAID, SELFPAY ==
[2021-10-27 21:32] VITALS: BP 110/72; PULSE 73; TEMP 36.6
[2021-10-27 21:33] VITALS: BP 110/72; PULSE 73
--- NOTE | 2021-10-28 01:24 | W.OBNST ---
Date of service: 10/27/21 Time of Service: 22:00 NST Evaluation Reason for NST Reasons for Nonstress Test: LABOR Reason for NST Other: Rule out labor Gestational Age Gestational Age in Weeks and Days: 38 Weeks and 0Days Test and Monitor Explained Test/Monitor Explained: Test Explained, Monitor Explained and Patient Verbalized Understanding Vital Signs Blood Pressure: 110/72 Pulse: 73 Temperature: 97.9 F Urine Results Urine Protein: Negative Urine Ketones: Negative Urine Glucose: Negative Urine Blood: Negative NST Information Date on Monitor: 10/27/21 Time on Monitor: 20:27 Date off Monitor: 10/27/21 Time off Monitor: 22:10 Total Time on Monitor: 103 NST Interventions: PO Hydration and Other NST Evaluation Patient States Movement: Present FHR Baseline: 120 Variability: Moderate 6-25 bpm Accelerations: 15x15 Decelerations: None NST Results: Reactive Note NST Note Note: Robyn is here for rule out labor. She was experiencing contractions every 10 minutes. SVE by RN. cervix 3/90/-1. Robyn requested to return home to await active labor and signs of labor reviewed. NST Reviewed and Verified by: Eneida Moya
[2021-10-28 01:26] VITALS: BP 110/72; PULSE 73; TEMP 36.6
== END 2021-10-27 22:20 | disposition home or self-care (01) ==
LOC: BCD 10-28 09:48 → OBS 10-28 09:48
PROVIDERS: Visit Provider Advanced Practice Midwife
DX: O47.1 False labor at or after 37 completed weeks of gestation (principal); Z3A.38 38 weeks gestation of pregnancy
CPT/HCPCS: 59025

== ENCOUNTER 2021-10-28 00:47 | Inpatient (IN) | payer MEDICAID, SELFPAY ==
[2021-10-28] VITALS (15 sets, daily range): BP systolic 104–159; BP diastolic 59–97; PULSE 55–83; RESP 16–18; TEMP 36.4–36.8; O2SAT 96–100
[2021-10-28] MEDS: Penicillin G POT. 5,000,000 UNITS in Normal Saline 100 ML 200 UNITS IVPB (01:23)
[2021-10-28 01:33] LABS: Source Nasal/Nares
[2021-10-28 01:36] LABS: HCT 32.8 % (36.0-46.0); HGB 10.7 g/dL (11.2-15.7); MCH 27.1 pg (27.0-33.0); MCHC 32.6 % (32.0-36.0); MCV 83 fL (80-95); MPV 9.9 fL (8.0-11.0); Platelet Count 236 10^3/uL (130-400); RBC 3.95 10^6/uL (3.93-5.22); RDW-SD 40.7 fL; WBC 11.66 10^3/uL (4.4-10.8)
[2021-10-28] MEDS: Oxytocin/Normal Saline 30 UNIT/500 ML BAG 95 UNITS IV (01:55)
--- NOTE | 2021-10-28 02:12 | HPE_ITS ---
Date of service: 10/28/21 Time of Service: 01:00 Assessment and Plan Assessment and plan (1) Spontaneous onset of labor: Status: Acute Assessment and plan: Admit to Center. Comfort measures. Covid- 19 test. robyn requests epidural when anesthesia is available after surgery case. Anticipate . OB-HPI Labor/Delivery History of Present Illness Reason for Visit: Rule out labor Chief Complaint: Uterine Contractions. GRAZYNA Calculator Estimated Delivery Date Method Current WG Current Estimate 11/10/21 Ultrasound #1 38w 1d Other Estimates 11/02/21 LMP (Certain) 39w 2d Comments: Robyn is experiencing strong contractions. She had been evaluated earlier in the night and was 3 cms dilated. She chose to go home and await active labor. She returns with contractions every 3 minutes apart History of Present Expected Delivery Route/Plan - CNM FOB/boyfriend - Klaus Clancy (has a 6 yo daughter, first child together) BG Naty Rain GBS POSITIVE - PCN intrapartum prophylaxis Planning for epidural Specific Issues/Plan 1. Pt seen for postcoital bleeding in ED. Viable IUP at that time (03/17/21) 2. Hx carpal tunnel syndrome in both hands 3. Desires cfDNA & CF screening, drawn 04/15. AFP not done 3a. cfDNA result is nml, female fetus; CF negative 4. Hx MAT for opioid abuse & IVDA, stopped Methadone November 2020 4a. UDS + THC twice. POSC done 09/16/21 5. Takes Clonazepam 0.5 mg qd for anxiety, also daily MJ use 5a. Has appt with JAY 04/24, also accepts ref to [facility]- Has a therapist 6. 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 First child w/GBS meningitis @ 3 wks of age 10 yrs ago; plan GBS prophylaxis regardless of GBS status 8. Hx asthma and umbilical hernia repair 9. TSH-0.23, T4-0.88 at initial visit, discuss with patient, repeat in 2nd trimester- 9a. TSH 0.25 (L), FT4-0.74 (L) - per MD consult,repeat in 3rd trimester 9b. repeated at 27 weeks - TSH 0.31 (L)T4 0.75 (L) per consult with Dr. Dominguez, will repeat thyroid labs 6 weeks after delivery 10. THC+ on UDS, discuss with patient /05/13/21, repeat @ 28 wks, POSC done 09/16/21 11. Hx Hep C infection, is Hep C+, RNA titer is undetectable @ initial OB 12. Pap LGSIL recommend colposcopy 13. COVID+ on home test 06/02, has HARDY and nausea/vomiting, was not vaccinated. 13a. Comfort measures discussed, to call if symptoms worsen. anatomy sono & lab appt resched'ed for 06/20 13b. 30 week growth US scheduled for 09/03/21 Cephalic, BILL 11.2, 37% growth 14. Pt doesn't have custody of son, visitation on weekends, Daughter in shared custody w/her FOB who lives in [place] 15. Low lying placenta- 3.6 cms from os. - repeat US at 30 wks, sched'ed for 15a. 09/03 - >3 cm from OS no follow up needed, 16. Migraine - fioricet precribed PRN- # 10 dispensed 16. Dental extractions - tylenol for pain, headache after 4 hour procedure, took ibuprofen x 1 for severe pain and fioricet 2 tablets for associated headache- additional 2 tablets dispensed. 17. Flu 10/01 - treated with tamiflu. PFSH All Active Problems Spontaneous onset of labor (Acute) Group B streptococcal carriage complicating (Acute) Hepatitis C (Chronic) Anemia affecting in third trimester (Acute) (Acute) Influenza A (Acute) Hypomagnesemia (Acute) Acute hypokalemia (Acute) Vaginal irritation (Acute) Low-lying placenta in second trimester (Acute) COVID-19 affecting in second trimester (Acute) At home COVID test positive 06/02/21, not vaccinated, mild symptoms Low TSH level (Acute) Dysuria (Acute) LGSIL (low grade squamous intraepithelial dysplasia) (Acute) 04/15/2021 screening Pap LGSIL. 05/01/2021. Normal appearing colposcopy. No biopsies taken. 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) History of opioid abuse (Acute) Anxiety disorder affecting , antepartum (Acute) History of hepatitis C (Acute) (Acute) Shortness of breath (Acute) S/P hernia repair (Acute) Medical History Abdominal pain Abdominal pain during Hepatitis C Miscarriage, threatened, early No significant past medical history Opiate dependence Optic neuritis Urinary frequency UTI (urinary tract infection) Vaginal discharge Surgical History H/O umbilical hernia repair Social History Smoking/Tobacco Use Status: Former Tobacco Use Smoking risk assessment performed?: Yes Alcohol Intake: former Drug use: Daily Substance use type: marijuana Details: clean/sober for 7 years Do you feel safe at home: Yes Do you feel safe in your relationship?: Yes History History 4 Para 2 Hx # Term Pregnancies 2 Multiple births 0 Hx # Pregnancies 0 Ectopic pregnancies 0 AB induced 1 Hx Number of Living Children 2 AB spontaneous 0 Past Pregnancies Del. Date GA/Weeks # Outcome Route Wgt Sex Labor Lgth Anesthes ia Location Prov Complic 04/26/11 40 No Successful vaginal 7 lb 6 oz Male 36 hrs [facility] - [facility] 09/13/14 41 No Successful vaginal 7 lb 15 oz Female 12 hrs [facility] - MD service Delivery Date: 04/26/11 Last Updated by: Susan Richardson IOL for PROM at term, 36 hrs labor w/epidural, GBS negative. Nml , baby w/GBS meningitis at 3 weeks of age, is ok now. Ronald Delivery Date: 09/13/14 Last Updated by: Susan Richardson IOL for postdates; epidural. GBS neg. Nml Carabella Meds Allergies and Home Medications Allergies Allergy/AdvReac Type Severity Reaction Status Date / Time No Known Allergies Allergy Verified 10/21/21 14:37 Home Medications Medication Instructions Recorded Confirmed Type vits no.126-ferrous fum tab PO DAILY 05/13/21 10/21/21 History 28 mg iron-folic acid 800 mcg tablet (Classic ) docusate sodium 100 mg capsule 100 mg PO BID #90 caps 07/16/21 10/21/21 Rx (Colace) ondansetron 4 mg disintegrating 4 mg PO Q8H PRN nausea and 10/01/21 10/21/21 Rx tablet vomiting #15 tabs clonazepam 0.5 mg tablet 0.5 mg PO BID 10/21/21 10/21/21 History ferrous sulfate 325 mg (65 mg 325 mg PO Q OTHER DAY #30 tabs 10/21/21 10/21/21 Rx iron) tablet,delayed release iron sucrose 200 mg iron/10 mL 200 mg (10 mL) IV QWEEK #10 mL 10/21/21 10/21/21 Rx intravenous solution Exam Physical Exam Vital signs: Temp Pulse Resp BP Pulse Ox 97.5 F L 66 18 121/77 100 10/28/21 01:11 10/28/21 01:58 10/28/21 01:11 10/28/21 01:58 10/28/21 01:00 Detailed Labor and Delivery Exam Dilation: 6 Effacement (%): 100 station: -1 Cervix position: mid Consistency: soft Lua Score: Cervical Points Exam 0 1 2 3 Dilation Closed 1-2cm 3-4 cm 5-6cm Effacement 0-30% 40-50% 60-70% 80% Consistency Firm Medium Soft Station -3 -2 -1,0 +1,+2 Position Posterior Mid Anterior Amniotic Membrane Status: Intact Monitor Mode: External Contraction Frequency(min): every 3 Contraction Duration(sec): 60 Contraction Intensity: Moderate/Strong Fetus A Heart Rate Baseline: 110 Monitor Accelerations: 15 X 15 Monitor Decelerations: None Variability: Moderate (6-25 BPM) Presentation: Vertex Categories: Category I Date of Membrane Rupture: 10/28/21 Time of Membrane Rupture: 01:48 Assessment Note: Low heart rate baseline 95-105 at times. This is consistent with heart rate during previous NST Results Results Group Beta Strep: Positive Abnormal Lab Findings: Abnormal Labs 10/28/21 01:22 WBC 11.66 H Hgb 10.7 L Hct 32.8 L Risk Assessment Risk for Shoulder Dystocia Historical/Initial OB: NEGATIVE FOR: Pelvic Abnormality, Pre- BMI>30, Previous Shoulder Dystocia or Previous Macrosomia Delivery Plan @ 36wks: NVD RICARDA Risk for Pre-Eclampsia Date Initiated/Initials: not indicated. JK Yes, if one or more: NEGATIVE FOR: Hx Pre-E/Gest HTN, Chronic HTN, Multiple Gestation, Pre-gestational DM, Renal Disease, Systemic Lupus or APA Syndrome Yes, if 2 or more: NEGATIVE FOR: Nulliparity, Age>= 35 yrs, >10yr btwn pregnancies, BMI>30, ethinicty, Mother/Sister w/ Pre-E or Previous IUGR Risk for Post- Hemorrhage Initial: NEGATIVE FOR: Multiple Gestation, Previous PPH, Known Clotting Deficiency, Grand Multiparity or Anticoagulation Risks Reviewed Risks Reviewed Upon Admission: Yes
[2021-10-28 02:28] LABS: COVID-19 PCR Negative (Negative)
--- NOTE | 2021-10-28 02:35 | OBVDS_ITS ---
Date of service: 10/28/21 Time of Service: 02:35 OB Labor/ Delivery Information Baby A Delivery Delivery Method: Spontaneaous Presentation: Vertex Amniotic Fluid: Clear Estimated Blood Loss: 300 Delivery Outcome: Liveborn Complications: none Note: FHTs 95-110 during first stage of labor. Progressed to full dilation and began pushing. SROM occurred with first push. The baby crowned with the second push and spontaneous delivery occurred of female infant delivered in ANMOL position. Baby was placed on mother's abdomen and dried and stimulated. Spontaneous cry. Cord was clamped and cut by the baby's father . The placenta delivered spontaneously and appears to by intact with a three vessel cord. Pitoc in 30 units IV was administered prior to delivery of the placenta. The perineum was inspected and it is intact. The baby did breastfeed. After delivery, Mother and baby and father of the baby were stable and bonding well in the delivery room and there were no complications. Providers Nurse Superintendent Of Schools: Eneida Moya Nurse: Crista Darby Nurse: Angelina Borges Labor/Delivery Information Number of Babies in Womb: 1 Steroids Given: None Reason Steroids Not Administered: N/A Group Beta Strep: Positive Antibiotics Administered: Yes Rubella Status: Immune Blood Type: A+ Varicella Immunity: Immune Stages of Labor Onset of Labor Date: 10/27/21 Onset of Labor Time: 14:30 Complete Dilatation Date: 10/28/21 Complete Dilatation Time: 01:48 Labor - Stage 1 Duration: 24 hours and 0 minutes ROM Baby A: 10/28/21 ROM Baby A: 01:48 ROM Total Time- Baby A: [id number] Infant Delivery Date-Baby A: 10/28/21 Infant Delivery Time-Baby A: 01:49 Labor Stage 2 Duration: 1 minutes Placenta Delivery Date-Baby A: 10/28/21 Placenta Delivery Time-Baby A: 01:57 Labor-Stage 3 Duration: 8 minutes Total Length of Labor-Baby A: 11 hours and 19 minutes Placenta Status: Delivered Baby A Infant Gender: Female Gestational Status: Early Term (37-38.6 wks) Gestational Age in Weeks/Days: 38 Weeks and 1 Days Score-1 Minute Interval(Baby A) Heart Rate-1 minute: 100 BPM or Greater Respiratory Effort- 1 minute: Spontaneous/Strong Cry Muscle Tone-1 minute: Active Movement Reflex Response-1 minute: Minimal Response Color-1 minute: Bluish Hands or Feet Total Score-1 minute: 8 Score-5 Minute Interval(Baby A) Heart Rate- 5 minute: 100 BPM or Greater Respiratory Effort-5 minute: Spontaneous/Strong Cry Muscle Tone-5 minute: Active Movement Reflex Response-5 minute: Prompt Response Color-5 minute: Bluish Hands or Feet Total Score- 5 minute: 9
[2021-10-28] MEDS: Ibuprofen 600 MG TAB PO ×3 (04:04→17:15)
[2021-10-28] MEDS: Acetaminophen 325 MG TAB 650 MG PO ×4 (04:09→19:54)
[2021-10-28] MEDS: clonazePAM 0.5 MG TAB 1 MG PO (08:20)
[2021-10-28] MEDS: Hamamelis Leaf/Glycerin 100 EACH BOX PR (08:21)
[2021-10-29] MEDS: Acetaminophen 325 MG TAB 650 MG PO ×2 (00:45→07:36)
[2021-10-29] MEDS: Ibuprofen 600 MG TAB PO ×2 (00:45→07:37)
[2021-10-29] MEDS: clonazePAM 0.5 MG TAB 1 MG PO (07:36)
[2021-10-29 08:05] VITALS: BP 120/68; PULSE 61; RESP 17; TEMP 37; O2SAT 98
== END 2021-10-29 09:03 | disposition home or self-care (01) | DRG 806 ==
PROVIDERS: Admitting Provider Advanced Practice Midwife; Visit Provider Advanced Practice Midwife
DX: O99.824 Streptococcus B carrier state complicating childbirth (principal); O98.42 Viral hepatitis complicating childbirth; Z37.0 Single live birth; Z3A.38 38 weeks gestation of pregnancy; B18.2 Chronic viral hepatitis C; O99.344 Other mental disorders complicating childbirth; O99.324 Drug use complicating childbirth; F12.90 Cannabis use, unspecified, uncomplicated; O99.354 Diseases of the nervous system complicating childbirth; G43.909 Migraine, unspecified, not intractable, without status migrainosus
CPT/HCPCS: 36415; 85027; 86850; 86900; 86901; 87635; J2540; J3490

== ENCOUNTER 2021-10-28 02:14 | Outpatient (RCR) | payer MEDICAID, SELFPAY ==
[2021-10-25] MEDS: IRON SUCROSE COMPLEX 200 MG in Normal Saline 100 ML 440 MG IVPB (08:14)
[2021-10-25] MEDS: Normal Saline Flush 10 ML SYR IVP (08:18)
--- NOTE | 2021-10-29 12:17 | W.PM.OBDISCH ---
Date of service: 10/29/21 Time of Service: 12:17 DS: Diagnosis Discharge Diagnosis (1) Term of female : Status: Acute Asessment and Plan: Caring for baby independently. Pain is managed well with oral analgesics. Voiding without difficulty. well. Robyn has a history of GBS infection of her first child. Robyn requests discharge this morning so she can go outside for brief periods of time. The baby will be observed for 48 hours due to positive GBS colonozation. A - stable mother and baby , Post day 1, GBS colonization with history of infant with GBS sepsis. History of anxiety treated with lorazepam. P - Discharge to home today. She will continue to board with the baby and care for her. Routine post instructions. Follow up with mental health provider. [facility]. Discharge Plan Disposition Patient Disposition: HOME Discharge Details Reason For Visit: venofer 200mg no labs 10/25 (labs 10/28) Attending Provider: Little Richardson Primary Care Provider: Unknown,Unknown Home Meds and New Rx's Prescriptions: Continued Classic 28 mg iron- 800 mcg tablet 1 tab PO DAILY clonazepam 0.5 mg tablet 0.5 mg PO BID Label Comments: TAKE 1 TABLET BY MOUTH TWICE DAILY Discontinued docusate sodium [Colace] 100 mg capsule 100 mg PO BID Qty: 90 0RF ferrous sulfate 325 mg (65 mg iron) tablet,delayed release (DR/EC) 325 mg PO Q OTHER DAY Qty: 30 3RF iron sucrose 200 mg iron/10 mL solution 200 mg IV QWEEK Qty: 10 0RF Rx Instructions: administer over 30 mins No Action ondansetron 4 mg tablet,disintegrating 4 mg PO Q8H PRN (Reason: nausea and vomiting) Qty: 15 0RF Discharge Instructions Stand Alone Forms: BC Post Vaginal Deliver Activity:: Activity as Tolerated Activity:: Activity as Tolerated Equipment/Supplies:: No Equipment Needed Diet:: As Tolerated OB:DS Summary Contraception Discussed Contraception Discussed: Yes Contraceptive Plan: Undecided, Status at Discharge Functional status at discharge: independent ambulation Overall status at discharge: patient is back to baseline Mental Status: mental status grossly normal Speech and Movement: speech and movement normal Mood: congruent mood Affect: normal affect Exam Respiratory Exam Respiratory Exam: Normal Cardiovascular Exam Cardiovascular Exam: Normal Fundal Exam Fundus: Below Umbilicus and Firm Extremities Exam Extremity Exam: Normal Skin Exam Skin Exam: Normal Psychiatric Exam Psychiatric Exam: Normal PFSH All Active Problems Term of female (Acute) Hepatitis C (Chronic) Anemia affecting in third trimester (Acute) Influenza A (Acute) Hypomagnesemia (Acute) Acute hypokalemia (Acute) Vaginal irritation (Acute) Low TSH level (Acute) Dysuria (Acute) LGSIL (low grade squamous intraepithelial dysplasia) (Acute) 04/15/2021 screening Pap LGSIL. 05/01/2021. Normal appearing colposcopy. No biopsies taken. 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) History of opioid abuse (Acute) Anxiety disorder affecting , antepartum (Acute) History of hepatitis C (Acute) (Acute) Shortness of breath (Acute) S/P hernia repair (Acute) Medical History Abdominal pain Abdominal pain during Hepatitis C Miscarriage, threatened, early No significant past medical history Opiate dependence Optic neuritis Urinary frequency UTI (urinary tract infection) Vaginal discharge Surgical History H/O umbilical hernia repair Social History Smoking/Tobacco Use Status: Former Tobacco Use Smoking risk assessment performed?: Yes Alcohol Intake: former Drug use: Daily Substance use type: marijuana Details: clean/sober for 7 years Do you feel safe at home: Yes Do you feel safe in your relationship?: Yes History History 4 Para 2 Hx # Term Pregnancies 2 Multiple births 0 Hx # Pregnancies 0 Ectopic pregnancies 0 AB induced 1 Hx Number of Living Children 2 AB spontaneous 0 Past Pregnancies Del. Date GA/Weeks # Preg Succ Route Wgt Sex Labor Lgth Anesthesia Location Prov Complic 04/26/11 40 No vaginal 7 lb 6 oz Male 36 hrs [facility] - [facility] 09/13/14 41 No vaginal 7 lb 15 oz Female 12 hrs [facility] - MD service Delivery Date: 04/26/11 Last Updated by: Susan Richardson IOL for PROM at term, 36 hrs labor w/epidural, GBS negative. Nml , baby w/GBS meningitis at 3 weeks of age, is ok now. Ronald Delivery Date: 09/13/14 Last Updated by: Susan Richardson IOL for postdates; epidural. GBS neg. Nml Geni
== END 2021-11-07 23:59 | disposition home or self-care (01) ==
LOC: INF 02:14
PROVIDERS: Visit Provider Advanced Practice Midwife
DX: O99.013 Anemia complicating pregnancy, third trimester (principal)
CPT/HCPCS: 96365; J1756

== ENCOUNTER 2021-11-19 15:38 | Outpatient (REF) | payer MEDICAID, SELFPAY | END 2021-11-19 15:39 | disposition home or self-care (01) | LOC: LBN 15:38 | PROVIDERS: Visit Provider Advanced Practice Midwife | DX: R30.0 Dysuria (principal) | CPT/HCPCS: 87077; 87086; 87186 ==

== ENCOUNTER 2021-12-09 15:49 | Outpatient (REF) | payer MEDICAID, SELFPAY ==
--- NOTE | 2021-12-09 14:35 | PAPFT_PTH ---
PATIENT: Robyn Nina LOC: [facility] U#:[id number] AGE/SX: 31/F ROOM: RE12/09/[address]: Eneida Moe CNM : 1990 BED: DIS: 12/09/2021 SPEC #: [id number] RECD: 12/09/21 17:00 STATUS: KARIYefri REQ #: [id number] DELROY: 12/09/21 14:[address]: Eneida Moe DEPT: [facility] Cytology RECD BY: Lisbet Douglas ENTERED: 12/09/21 17:00 SP TYPE: PAPFT OTHR DR: Unknown,Unknown Tissues: 1 - CX/ENDOCX FOR PAP SMEARS Procedures: PAP THIN PREP/[facility] Screening HPV DNA PROBE Comments: [id number]
== END 2021-12-09 15:50 | disposition home or self-care (01) ==
LOC: LBN 15:49
PROVIDERS: Visit Provider Advanced Practice Midwife
DX: Z12.4 Encounter for screening for malignant neoplasm of cervix (principal); Z11.51 Encounter for screening for human papillomavirus (HPV); Z01.419 Encounter for gynecological examination (general) (routine) without abnormal findings
CPT/HCPCS: 88142; 87624

== ENCOUNTER 2021-12-18 17:02 | Outpatient (REF) | payer MEDICAID, SELFPAY | END 2021-12-18 17:03 | disposition home or self-care (01) | LOC: LBN 17:02 | PROVIDERS: Visit Provider Physician Assistant Medical | DX: N89.8 Other specified noninflammatory disorders of vagina (principal) | CPT/HCPCS: 87480; 87510; 87660 ==

== ENCOUNTER 2022-01-05 20:32 | Emergency (ER) | payer MEDICAID, SELFPAY ==
[2022-01-05 20:49] VITALS: BP 137/73; PULSE 82; RESP 14; TEMP 37.1; O2SAT 98
[2022-01-05 21:19] LABS: Bilirubin Negative (Negative); Blood Negative (Negative); Clarity Clear (Clear); Glucose Negative (Negative); Ketones Negative (Negative); Leukocyte Esterase Negative (Negative); Nitrite Negative (Negative); Urobilinogen 0.2 EU/dL (Up TO 0.2); pH 7.5 (5-8)
[2022-01-05] MEDS: Ketorolac 30 MG/ML VIAL IVP (22:15)
[2022-01-05] MEDS: Ondansetron 4 MG/2 ML VIAL IVP (22:15)
--- NOTE | 2022-01-05 22:33 | ED.GENADUL_ITS ---
Discharge Plan Disposition Patient Disposition: HOME Condition: Stable Discharge Details Clinical Impression: BV (bacterial vaginosis) Primary Care Provider: None,None ED Provider: Esteban Ramirez Home Meds and New Rx's Prescriptions: New metronidazole 500 mg tablet 500 mg PO BID 7 Days Qty: 14 0RF No Action levonorgestrel-ethinyl estrad [Jolessa] 0.15 mg-30 mcg (91) tablets,dose pack ,3 month 1 tab PO DAILY Qty: 273 0RF clonazepam 0.5 mg tablet 0.5 mg PO BID Label Comments: TAKE 1 TABLET BY MOUTH TWICE DAILY Discharge Instructions Instructions: Bacterial Vaginosis (ED) Additional Instructions: Please take medications as prescribed and avoid any alcohol while on the antibiotics. Please follow-up with [facility] for reassessment and to ensure you are improving. Stand Alone Forms: Work Release Referrals: [facility] [Provider Group] Discharge Data Discharge Date/Time-TO BE ENTERED AT DEPARTURE: 01/06/22 00:31 Medical Decision Making Patient presenting to the emergency department for chief complaint of abdominal cramping and discomfort. Patient has had some nausea and slight vaginal discharge. Patient does have significant recent medical history of BV and yeast infection and did have vaginal 10 weeks ago. Physical exam shows tenderness to palpation of suprapubic region mostly in the left lower aspect. Exam is otherwise unremarkable. Vaginal exam was performed with RN referral coordinator in room and does show slight reddish discharge that appears normal with no other findings noted. We will plan on checking labs urinalysis and test. Review of labs is unremarkable, patient is not , unremarkable urinalysis, CBC shows a chronic but stable anemia. And slightly low mag at 1.7. Patient still pending vaginal path and GC chlamydia. Patient denies any worsening of the symptoms she had previously when she had BV and yeast infection. She states that those were both secondary to taking antibiotics. Exam of the abdomen remains benign with no rigidity, no guarding, soft abdomen with normal active bowel sounds no McBurney's point tenderness and no peritoneal findings. Will order outpatient imaging for pelvic ultrasound tomorrow. Discussed any further symptoms patient might have and she did state that last night she had alcohol and this morning did have some bloating and epigastric discomfort. Will give patient some Bentyl, GI cocktail, along with to go tablets of Zofran for any further nausea that occurs at home. At this time I do not feel that patient requires any CT imaging but patient to return tomorrow for ultrasound and abdominal reassessment Pending discharge did receive results and it actually appears that patient has BV. Will cancel ultrasound imaging and start patient on oral Flagyl. Patient did state that she drank this morning while at this so we will have patient start medication tomorrow as I feel she is otherwise stable. Patient placed upon follow-up list to follow-up with [facility] for recurrent BV. After discussion of diagnosis and plan of care patient has no further needs, questions, or concerns and states clear understanding to return to the emergency department for any worsening symptoms. Lab Data Lab results reviewed: Yes I reviewed the patient's lab results. HPI General Mode of arrival: ambulatory . Date/Time Provider Initiated Documentation: 01/05/22 20:33 . Limitations to Documentation: no limitations . Information obtained by: RN notes reviewed and old records reviewed . History of Present Illness 31 year old F presents to the emergency department with the chief complaint of Lower abdominal cramping and nausea, described as moderate, Related Data Home Medications Medication Instructions Recorded Confirmed clonazepam 0.5 mg tablet 0.5 mg PO BID 10/21/21 01/05/22 levonorgestrel 0.15 mg-ethinyl 1 tab PO DAILY #273 dose pk 11/12/21 01/05/22 estradiol 30 mcg tablets,3 mos pack(91) (Jolessa) metronidazole 500 mg tablet 500 mg PO BID 7 days #14 tabs 01/06/22 Previous Rx's Medication Instructions Recorded levonorgestrel 0.15 mg-ethinyl 1 tab PO DAILY #273 dose pk 11/12/21 estradiol 30 mcg tablets,3 mos pack(91) (Jolessa) metronidazole 500 mg tablet 500 mg PO BID 7 days #14 tabs 01/06/22 Allergies Allergy/AdvReac Type Severity Reaction Status Date / Time No Known Allergies Allergy Verified 01/05/22 20:54 General Stated Complaint: [employer]IL [employer]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[employer] SUDHA: 3 Review of Systems Constitutional Constitutional: Denies chills, Denies fever(s) and Denies weakness Cardiovascular Cardiovascular: Denies chest pain and Denies dyspnea Respiratory Respiratory: Denies cough and Denies dyspnea Gastrointestinal Gastrointestinal: Reports abdominal pain, Reports diarrhea, Denies nausea and Denies vomiting Genitourinary Genitourinary: Reports as per HPI, Denies abnormal menses, Denies abnormal vaginal bleeding, Denies hematuria, Denies genital pruritis, Denies genital lesions, Denies dysuria, Reports pelvic pain, Reports prolapse symptoms, Denies flank pain, Denies urinary urgency and Reports vaginal discharge Musculoskeletal Musculoskeletal: Denies back pain Integumentary/Breasts Skin/Breast: Denies new lesions and Denies rash Neurologic Neurologic: Denies confusion and Denies weakness Psychiatric Psychiatric: Denies confusion PFSH All Active Problems BV (bacterial vaginosis) (Acute) Dysuria (Acute) care following vaginal delivery (Acute) Term of female (Acute) Hepatitis C (Chronic) Anemia affecting in third trimester (Acute) Vaginal irritation (Acute) Low TSH level (Acute) Dysuria (Acute) LGSIL (low grade squamous intraepithelial dysplasia) (Acute) 04/15/2021 screening Pap LGSIL. 05/01/2021. Normal appearing colposcopy. No biopsies taken. 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) History of opioid abuse (Acute) Anxiety disorder affecting , antepartum (Acute) History of hepatitis C (Acute) Shortness of breath (Acute) S/P hernia repair (Acute) Medical History Abdominal pain Abdominal pain during Miscarriage, threatened, early No significant past medical history Opiate dependence Optic neuritis Urinary frequency UTI (urinary tract infection) Vaginal discharge Surgical History H/O umbilical hernia repair Social History Smoking/Tobacco Use Status: Current-Occasional Tobacco Type: cigarettes Smoking risk assessment performed?: Yes Alcohol Intake: current Alcohol Intake frequency: holidays/special occasions only Drug use: Current Sobriety Substance use type: does not use Details: clean/sober for 7 years Reports about 5 cigarettes a week since giving . Do you feel safe at home: Yes Do you feel safe in your relationship?: Yes History History 4 Para 3 Hx # Term Pregnancies 3 Multiple births 0 Hx # Pregnancies 0 Ectopic pregnancies 0 AB induced 1 Hx Number of Living Children 3 AB spontaneous 0 Past Pregnancies Del. Date GA/Weeks # Preg Succ Route Wgt Sex Labor Lgth Anesth esia Location Prov Complic Unknown 38 No Yes vaginal Female 11hrs 19oz [facility] [place] TammyRosanaKAMILA glover 04/26/11 40 No vaginal 3345.244 g Male 36 hrs [facility] - [facility] 09/13/14 41 No vaginal 3600.389 g Female 12 hrs [facility] - MD service Delivery Date: Last Updated by: JUAREZ Hart; Delivery Date: 04/26/11 Last Updated by: Susan Richardson IOL for PROM at term, 36 hrs labor w/epidural, GBS negative. Nml , baby w/GBS meningitis at 3 weeks of age, is ok now. Ronald Delivery Date: 09/13/14 Last Updated by: Susan Richardson IOL for postdates; epidural. GBS neg. Nml Carabella Exam Const General: cooperative Orientation: alert, awake and oriented x3 Resp Effort & Inspection: normal respiratory effort and able to speak in complete sentences Auscultation: clear to auscultation bilaterally Cardio Rate: regular rate Rhythm: regular rhythm Heart Sounds: S1 normal and S2 normal GI Palpation: soft, no hepatosplenomegaly, not firm, no guarding, no masses, no pulsatile masses, not rigid, no splenomegaly and tender Auscultation: normal bowel sounds General: other (Exam performed with RN referral coordinator in room) External Female Exam: normal external appearance, normal appearance of the urethra, no erythema, no lesions and No urethral discharge Speculum Exam - Vagina: normal appearance of the vagina, normal vaginal discharge, no lacerations, no lesions, No vaginal bleeding, No tissue present in vagina, no swelling and nontender Speculum Exam - Cervix: normal appearance of the cervix and nontender Bimanual Exam- Vagina & Uterus: normal bimanual exam, normal palpation, normal palpation, uterine mobility normal, No tender and no cervical motion tenderness Bimanual Exam- Adnexa, other: normal adnexae and no masses OB/External & Speculum: no tissue noted in vagina and No vaginal bleeding Back/Spine/Pelvis Back: no CVA tenderness Neuro General: patient alert, patient awake, patient oriented x3, gait normal and moves all extremities Course Vital Signs Vital signs: Vital Signs Temperature 37.1 C 01/05/22 20:49 Pulse 82 01/05/22 20:49 Respiratory Rate 14 01/05/22 20:49 Blood Pressure 137/73 01/05/22 20:49 Pulse Oximetry 98 01/05/22 20:49 Temperature 37.1 C 01/05/22 20:49 Temperature Source Skin 01/05/22 20:49 Pulse 82 01/05/22 20:49 Respiratory Rate 14 01/05/22 20:49 Respiratory Effort Non-Labored 01/05/22 20:55 Blood Pressure 137/73 01/05/22 20:49 Blood Pressure Position Sitting 01/05/22 20:49 Pulse Oximetry 98 01/05/22 20:49 Oxygen Delivery Method Room Air 01/05/22 20:49 Oxygen Flow Rate 0 01/05/22 20:49 Pain Level 4 01/05/22 20:55 Lab/Test Results Lab/Test Results: 01/05/22 22:15 Vaginal Vaginitis Screen - Pending 01/05/22 21:03 Urine - Clean Catch Urine Culture - Pending Laboratory Tests Range/Units 01/05/22 21:03 Urine Color (Yellow) Yellow Urine Clarity (Clear) Clear Urine pH (5-8) 7.5 Ur Specific [place] (1.005-1.025) 1.020 Urine Protein (Negative) mg/dL Negative Urine Ketones (Negative) mg/dL Negative Urine Blood (Negative) Negative Urine Nitrite (Negative) Negative Urine Bilirubin (Negative) Negative Urine Urobilinogen (Up TO 0.2) EU/dL 0.2 Ur Leukocyte Esterase (Negative) Negative Urine Glucose (Negative) mg/dL Negative POC- Test(urine) Negative PAWSS Have you Been Recently Intoxicated or Drunk Within the Last 30 days?: No Have you Ever Experienced Previous Episodes of Alcohol Withdrawal?: No Have you ever Experienced Withdrawal Seizures?: No Have you ever Experienced Delirium Tremens(DT)s?: No Have you ever undergone Alcohol Rehabilitation Treatment (i.e, inpt ot outpatient treatment programs)?: No Have you ever Experienced Blackouts?: No Have you ever Combined Alcohol with other Downers within the last 90 days?: No Have you ever Combined Alcohol with any other Substance of Abuse during the last 90 days?: No Positive Blood Alcohol level on Presentation? [PCS.BAL]: No Evidence of Increased Autonomic Activity (i.e. HR>120, tremor, sweating, agitation, nausea)?: No Result: 0
[2022-01-05 22:35] LABS: Lipase 106 U/L (73-393); Magnesium 1.7 mg/dL (1.8-2.4)
[2022-01-05 22:40] LABS: ALT 18 U/L (14-59); AST 19 U/L (15-37); Albumin 3.5 g/dL (3.4-5.0); Alkaline Phosphatase 39 U/L (46-116); Anion Gap 5.3 mmol/L (3-11); BUN 12 mg/dL (7-18); Bilirubin, Total 0.2 mg/dL (0.2-1.0); CO2 26.7 mmol/L (21.0-32.0); CREATININE 0.7 mg/dL (0.55-1.02); Calcium 8.5 mg/dL (8.5-10.1); Chloride 107 mmol/L (98-107); Glucose 94 mg/dL (74-106); Potassium 4.4 mmol/L (3.5-5.1); Sodium 139 mmol/L (136-145)
[2022-01-05] MEDS: Normal Saline 1,000 ML 1000 ML IV (22:42)
[2022-01-05 23:28] LABS: Abs Immature Grans 0.02 10^3/uL (0.0-0.06); Absolute Basophil Count 0.06 10^3/uL (0.0-0.2); Absolute Eosinophil Count 0.21 10^3/uL (0.0-0.7); Absolute Lymphocyte Count 2.96 10^3/uL (1.2-3.4); Absolute Monocyte Count 0.73 10^3/uL (0.1-0.8); Absolute Neutrophil Count 3.92 10^3/uL (1.2-6.7); Basophils % 0.8; Eosinophils % 2.7; HCT 33.4 % (36.0-46.0); HGB 10.9 g/dL (11.2-15.7); Immature Grans % 0.3; Lymphocytes % 37.5; MCH 28.1 pg (27.0-33.0); MCHC 32.6 % (32.0-36.0); MCV 86 fL (80-95); Monocytes % 9.2; Neutrophils % 49.5; Platelet Count 302 10^3/uL (130-400); RBC 3.88 10^6/uL (3.93-5.22); RDW 16.3 % (11.7-14.6); RDW-SD 51.7 fL
--- NOTE | 2022-01-05 23:47 | NUR.NOTE ---
Addendum entered by Irena Waters 01/06/22 00:09: Ultrasound not needed as patient has diagnosis that doesn't warrent the test. Original Note: Ultrasound requisition faxed to [facility] for transvaginal US and follow up in ED.Nursing Note:
--- NOTE | 2022-01-06 00:10 | NUR.NOTE ---
Referral faxed to [facility] to f/u in a week or so for recurrent bacterial vaginosis.Nursing Note:
[2022-01-06] MEDS: Dicyclomine 10 MG CAP PO (00:22)
[2022-01-06] MEDS: Ondansetron O.D.T. 4 MG TABEF, 3 TABS/BTL PO (00:22)
[2022-01-07 14:35] LABS: Chlamydia Result Negative (Negative); GC Result Negative (Negative)
== END 2022-01-06 00:31 | disposition home or self-care (01) ==
PROVIDERS: Emergency Provider Nurse Practitioner Family
DX: N76.0 Acute vaginitis (principal); B96.89 Other specified bacterial agents as the cause of diseases classified elsewhere; F17.210 Nicotine dependence, cigarettes, uncomplicated
CPT/HCPCS: 80053; 81025; 83690; 87491; 87591; 96361; 96372; 96374; 96375; 99284; 81003; 83735; 85025; 87086; 87480; 87510; 87660; 99283; J1885; J2405

== ENCOUNTER 2022-04-24 17:42 | Outpatient (REF) | payer MEDICAID, SELFPAY | END 2022-04-24 17:43 | disposition home or self-care (01) | LOC: LBN 17:42 | PROVIDERS: Visit Provider Obstetrics & Gynecology | DX: N89.8 Other specified noninflammatory disorders of vagina (principal) | CPT/HCPCS: 87480; 87510; 87660 ==

== ENCOUNTER 2022-06-05 10:53 | Emergency (ER) | payer MEDICAID, SELFPAY ==
[2022-06-05 10:57] VITALS: BP 148/80; PULSE 93; RESP 16; TEMP 37.6; O2SAT 98
--- NOTE | 2022-06-05 11:35 | W.ED.GENAD ---
Discharge Plan Disposition Patient Disposition: Home Condition: Stable Discharge Details Clinical Impression: Pyelonephritis Primary Care Provider: None,None ED Provider: Brian Young Home Meds and New Rx's Prescriptions: New cefpodoxime 200 mg tablet 200 mg PO BID Qty: 18 0RF Rx Instructions: must administer with a meal/food fluconazole [Diflucan] 150 mg tablet 150 mg PO Q3D Qty: 2 0RF Rx Instructions: Take initial dose for yeast infection and repeat in 3 days if symptoms persist Continued clonazepam 0.5 mg tablet 0.5 mg PO BID Label Comments: TAKE 1 TABLET BY MOUTH TWICE DAILY levonorgestrel-ethinyl estrad [Jolessa] 0.15 mg-30 mcg (91) tablets,dose pack,3 month 1 tab PO DAILY Qty: 91 3RF Discontinued nitrofurantoin 50 mg Capsule 50 mg PO BID Discharge Instructions Instructions: Urinary Tract Infection in Women (ED) Additional Instructions: Please take full course of cefpodoxime antibiotic as prescribed. Stop taking prior antibiotic nitrofurantoin. Take Diflucan as prescribed if you develop yeast infection. Please contact your primary care physician to arrange follow-up. Return to the ER immediately for any worsening or new concerning symptoms. Medical Decision Making 31-year-old female here with urinary symptoms and associated nausea vomiting and subjective fever with chills today. Patient was seen at [facility] and started on Macrobid which she has been taking as prescribed and had initial improvement in symptoms. Symptoms now worsening. Patient does have some mild right CVA tenderness. Concern for resistant UTI and progression to pyelonephritis. I will initiate treatment with ceftriaxone IM and then continue cefpodoxime for treatment of pyelonephritis. Patient does have history of developing yeast infection with antibiotics. She currently does not any abnormal vaginal discharge. I will prescribe Diflucan to be used should she develop symptoms. I will have her follow-up with PCP. Patient will need to establish care with PCP. Usual customary discharge instructions reviewed with the patient. HPI General Mode of arrival: ambulatory. Date/Time Provider Initiated Documentation: 06/05/22 11:25. Limitations to Documentation: no limitations. Information obtained by: patient. HPI Narrative: 31-year-old female presents with chief complaint of urinary discomfort. Patient notes sense of urgency that started 4 days ago with associated dysuria. She was seen at [facility] and started on Macrobid. She notes Macrobid seem to be helping on day 1 and then subsequently symptoms have worsened. She had chills last night as well as associated nausea and vomiting. Patient does note she has been taking Macrobid as prescribed and also taking Pyridium. Related Data Home Medications Medication Instructions Recorded Confirmed clonazepam 0.5 mg tablet 0.5 mg PO BID 10/21/21 06/05/22 levonorgestrel 0.15 mg-ethinyl 1 tab PO DAILY #91 dose pk 02/03/22 06/05/22 estradiol 30 mcg tablets,3 mos pack(91) (Jolessa) cefpodoxime 200 mg tablet 200 mg PO BID #18 tabs 06/05/22 fluconazole 150 mg tablet 150 mg PO Q3D 2 doses #2 tabs 06/05/22 (Diflucan) Previous Rx's Medication Instructions Recorded levonorgestrel 0.15 mg-ethinyl 1 tab PO DAILY #91 dose pk 02/03/22 estradiol 30 mcg tablets,3 mos pack(91) (Jolessa) cefpodoxime 200 mg tablet 200 mg PO BID #18 tabs 06/05/22 fluconazole 150 mg tablet 150 mg PO Q3D 2 doses #2 tabs 06/05/22 (Diflucan) Allergies Allergy/AdvReac Type Severity Reaction Status Date / Time No Known Allergies Allergy Verified 04/24/22 15:55 General Stated Complaint: Urinary SUDHA: 3 Review of Systems All systems reviewed & are unremarkable except as noted in HPI and below Constitutional Constitutional: Reports chills Genitourinary Genitourinary: Reports as per HPI PFSH All Active Problems Pyelonephritis (Acute) Medical History Dysuria Hepatitis C History of intravenous drug use in remission History of opioid abuse LGSIL (low grade squamous intraepithelial dysplasia) 04/15/2021 screening Pap LGSIL. 05/01/2021. Normal appearing colposcopy. No biopsies taken. Recommend repeat pap PP Low TSH level Marijuana smoker Optic neuritis Urinary frequency UTI (urinary tract infection) Vaginal irritation Surgical History H/O umbilical hernia repair S/P hernia repair Social History Smoking/Tobacco Use Status: Current-Occasional Tobacco Type: cigarettes Smoking risk assessment performed?: Yes Alcohol Intake: current Alcohol Intake frequency: holidays/special occasions only Drug use: Current Sobriety Substance use type: does not use Details: clean/sober for 7 years Reports about 5 cigarettes a week since giving . Do you feel safe at home: Yes Do you feel safe in your relationship?: Yes History History 4 Para 3 Hx # Term Pregnancies 3 Multiple births 0 Hx # Pregnancies 0 Ectopic pregnancies 0 AB induced 1 Hx Number of Living Children 3 AB spontaneous 0 Past Pregnancies Del. Date GA/Weeks # Preg Succ Route Wgt Sex Labor Lgth Anesthesia Location Prov Complic Unknown 38 No Yes vaginal Female 11hrs 19oz [facility] Qui[facility]onez 04/26/11 40 No vaginal 3345.244 g Male 36 hrs [facility] - [facility] 09/13/14 41 No vaginal 3600.389 g Female 12 hrs [facility] - [facility] Delivery Date: Last Updated by: JUAREZ Hart; Delivery Date: 04/26/11 Last Updated by: Susan Richardson IOL for PROM at term, 36 hrs labor w/epidural, GBS negative. Nml , baby w/GBS meningitis at 3 weeks of age, is ok now. Ronald Delivery Date: 09/13/14 Last Updated by: Susan Richardson IOL for postdates; epidural. GBS neg. Nml Carabella Exam Const General: cooperative HENMT Mouth: moist mucous membranes Eyes Conjunctivae: normal conjunctivae Sclera: normal sclerae Neck Neck: trachea midline and supple Resp Auscultation: clear to auscultation bilaterally, no rales, no rhonchi and no wheezes Cardio Rate: regular rate and not tachycardic Rhythm: regular rhythm GI Palpation: soft, not firm, no guarding, no masses and not rigid General: CVA tenderness on the right (mild) Skin General skin exam: no rashes or lesions noted Neuro General: patient alert, patient awake and tone normal Extrem General: no edema Course Vital Signs Vital signs: Vital Signs Temperature 37.6 C H 06/05/22 10:57 Pulse 93 H 06/05/22 10:57 Respiratory Rate 16 06/05/22 10:57 Blood Pressure 148/80 H 06/05/22 10:57 Pulse Oximetry 98 06/05/22 10:57 Temperature 37.6 C H 06/05/22 10:57 Temperature Source Temporal Artery Scan 06/05/22 10:57 Pulse 93 H 06/05/22 10:57 Respiratory Rate 16 06/05/22 10:57 Respiratory Effort 06/05/22 11:15 Blood Pressure 148/80 H 06/05/22 10:57 Blood Pressure Position Sitting 06/05/22 10:57 Pulse Oximetry 98 06/05/22 10:57 Oxygen Delivery Method Room Air 06/05/22 10:57 Oxygen Flow Rate 0 06/05/22 10:57 Pain Level 9 06/05/22 11:15
[2022-06-05] MEDS: cefTRIAXone 1 GM VIAL IM (11:37)
[2022-06-05] MEDS: Lidocaine 1% Pres-Free 5 ML VIAL (11:37)
--- NOTE | 2022-06-05 11:50 | NUR.NOTE ---
Nursing Note: Referral given to Care Management for needs PCP for UTI, establish care; routine follow up
[2022-06-05 12:10] LABS: Bilirubin Color Interference (Negative); Blood Color Interference (Negative); Clarity Sl Cloudy (Clear); Glucose Color Interference mg/dL (Negative); Ketones Color Interference mg/dL (Negative); Leukocyte Esterase Color Interference (Negative); Nitrite Color Interference (Negative); Urobilinogen Color Interference EU/dL (Up TO 0.2)
[2022-06-05 12:17] LABS: Bacteria Few HPF (Negative); Crystals Negative HPF (Negative); Epithelial Cells Few HPF (Negative); Other Cells Rare Yeast (Negative)
[2022-06-05 12:18] LABS: C & S Indicated? C&S Done As Ordered; Casts Negative LPF (Negative); Mucus Moderate (Negative)
== END 2022-06-05 12:06 | disposition home or self-care (01) ==
PROVIDERS: Emergency Provider Student in an Organized Health Care Education/Training Program
DX: N12 Tubulo-interstitial nephritis, not specified as acute or chronic (principal)
CPT/HCPCS: 96372; 99284; 81003; 81015; 87086; J0696

== ENCOUNTER 2022-06-25 16:16 | Outpatient (REF) | payer MEDICAID, SELFPAY ==
[2022-06-25 21:15] LABS: HCT 37.8 % (36.0-46.0); HGB 12.5 g/dL (11.2-15.7); MCH 27.9 pg (27.0-33.0); MCHC 33.1 % (32.0-36.0); MCV 84 fL (80-95); MPV 10.6 fL (8.0-11.0); Platelet Count 299 10^3/uL (130-400); RBC 4.48 10^6/uL (3.93-5.22); RDW 14.5 % (11.7-14.6); RDW-SD 44.7 fL; WBC 7.34 10^3/uL (4.4-10.8)
[2022-06-25 21:29] LABS: ALT 18 U/L (14-59); AST 17 U/L (15-37); Albumin 5.1 g/dL (3.4-5.0); Alkaline Phosphatase 52 U/L (46-116); Anion Gap 11.7 mmol/L (3-11); BUN 10 mg/dL (7-18); Bilirubin, Total 0.6 mg/dL (0.2-1.0); C-Reactive Protein 0.11 mg/dL (0.0-0.3); CO2 26.3 mmol/L (21.0-32.0); CREATININE 0.9 mg/dL (0.55-1.02); Calcium 9.7 mg/dL (8.5-10.1); Chloride 102 mmol/L (98-107); Glucose 78 mg/dL (74-106); Potassium 4.1 mmol/L (3.5-5.1); Sodium 140 mmol/L (136-145); Total Protein 8.6 g/dL (6.4-8.2)
== END 2022-06-25 16:17 | disposition home or self-care (01) ==
LOC: NCHCN 16:16
PROVIDERS: Visit Provider Family Medicine
DX: N89.8 Other specified noninflammatory disorders of vagina (principal); N39.0 Urinary tract infection, site not specified; Z87.19 Personal history of other diseases of the digestive system
CPT/HCPCS: 80053; 85027; 86140

== ENCOUNTER 2022-10-12 09:20 | Emergency (ER) | payer MEDICAID, SELFPAY ==
[2022-10-12 09:23] VITALS: BP 140/50; PULSE 69; RESP 16; TEMP 36.6; O2SAT 98
--- NOTE | 2022-10-12 09:43 | ED.GENADUL_ITS ---
Discharge Plan Disposition Patient Disposition: Home Discharge Details Clinical Impression: Nausea and vomiting, Diarrhea, Viral gastroenteritis Primary Care Provider: Francisco Mayorga ED Provider: Delbert Brown Home Meds and New Rx's Prescriptions: New ondansetron 4 mg tablet,disintegrating 4 mg PO Q6H PRNQty: 20 0RF famotidine 40 mg tablet 40 mg PO DAILY Qty: 30 1RF loperamide [Imodium A-D] 2 mg capsule 2 mg PO QID PRN (Reason: loose stool) Qty: 30 0RF Continued clonazepam 0.5 mg tablet 0.5 mg PO BID Patient Comments: TAKE 1 TABLET BY MOUTH TWICE DAILY levonorgestrel-ethinyl estrad [Jolessa] 0.15 mg-30 mcg (91) tablets,dose pack,3 month 1 tab PO DAILY Qty: 91 3RF Discharge Instructions Instructions: Gastroenteritis (ED) Additional Instructions: You were seen in the emergency department for nausea vomiting and diarrhea. We performed labs that were unremarkable. We gave you some nausea medication and some medication to treat stomach acid and your symptoms improved. You able to eat and drink here. You likely have a viral gastroenteritis or viral GI bug. Drink plenty of fluids to stay hydrated. Take the prescribed Zofran/ondansetron as needed for any nausea or vomiting. You can also start taking famotidine in case GERD/reflux/gastritis is contributing to your symptoms. I have also given you a prescription for Imodium or you can get it [id number] to help with the diarrhea. As soon as your diarrhea starts to let up you should immediately stop taking the diarrhea as it will cause rebound constipation. Return for any abdominal pain, high fevers or chills, intractable nausea or vomiting, or any other symptoms that are worrisome to you. Follow-up with your primary care doctor. Referrals: Francisco Mayorga MD [Primary Care Provider] - 2 weeks Discharge Data Discharge Physician: Delbert Brown Medical Decision Making Patient markedly improved after nausea medication and treatment of GERD/gastritis. Labs grossly unremarkable. Tolerating p.o. Otherwise work-up grossly unremarkable. Feels better would like to leave. I think that this is reasonable. Likely represents a viral gastroenteritis. We will send a prescription for Zofran and famotidine and told her to also get [id number] Imodium. Will discharge with return precautions. Lab Data Lab results reviewed: Yes I reviewed the patient's lab results. Labs: Labs grossly unremarkable HPI General Mode of arrival: ambulatory . Date/Time Provider Initiated Documentation: 10/12/22 09:34 . Limitations to Documentation: no limitations . Information obtained by: patient . HPI Narrative: 32-year-old female previously healthy presents with nausea vomiting and diarrhea. Says it started 3 days ago. Has been persistent and worsening. No abdominal pain. No fevers or chills. No urinary symptoms. No vaginal bleeding or discharge. Says she is on oral contraceptive pill and has taken a urine test in this was negative. No recent travel or surgeries. No fresh water drinking sources. No raw foods or new foods introduced into her diet. No recent antibiotic use. Says she is feeling a little bit dehydrated and wanted to be evaluated. Denies smoking cigarettes. Only endorses occasional alcohol use and nothing recently. She is a chronic daily marijuana user. Related Data Home Medications Medication Instructions Recorded Confirmed clonazepam 0.5 mg tablet 0.5 mg PO BID 10/21/21 10/12/22 levonorgestrel 0.15 mg-ethinyl 1 tab PO DAILY #91 dose pk 02/03/22 10/12/22 estradiol 30 mcg tablets,3 mos pack(91) (Jolessa) famotidine 40 mg tablet 40 mg PO DAILY #30 tabs 10/12/22 loperamide 2 mg capsule (Imodium 2 mg PO QID PRN loose stool #30 10/12/22 A-D) caps ondansetron 4 mg disintegrating 4 mg PO Q6H PRN #20 tabs 10/12/22 tablet Previous Rx's Medication Instructions Recorded levonorgestrel 0.15 mg-ethinyl 1 tab PO DAILY #91 dose pk 02/03/22 estradiol 30 mcg tablets,3 mos pack(91) (Jolessa) famotidine 40 mg tablet 40 mg PO DAILY #30 tabs 10/12/22 loperamide 2 mg capsule (Imodium 2 mg PO QID PRN loose stool #30 10/12/22 A-D) caps ondansetron 4 mg disintegrating 4 mg PO Q6H PRN #20 tabs 10/12/22 tablet Allergies Allergy/AdvReac Type Severity Reaction Status Date / Time No Known Allergies Allergy Verified 10/12/22 09:27 General Stated Complaint: Abd Prob SUDHA: 3 Review of Systems Constitutional Constitutional: Denies chills, Denies fever(s) and Denies headache(s) Eyes Eyes: Denies change in vision ENT Ears, Nose, Mouth, and Throat: Denies headache(s) and Denies odynophagia Cardiovascular Cardiovascular: Denies chest pain and Denies dyspnea Respiratory Respiratory: Denies dyspnea Gastrointestinal Gastrointestinal: Denies abdominal pain, Reports diarrhea, Reports nausea, Denies odynophagia and Denies vomiting Genitourinary Genitourinary: Denies dysuria Musculoskeletal Musculoskeletal: Denies myalgias Integumentary/Breasts Skin/Breast: Denies changing lesions Neurologic Neurologic: Denies behavioral changes and Denies headache(s) Psychiatric Psychiatric: Denies behavioral changes Endocrine Endocrine: Denies heat intolerance Hematologic/Lymphatic Hematologic/Lymphatic: Denies lymphadenopathy PFSH All Active Problems (Updated 10/12/22 @ 10:38 by Delbert Brown MD) Nausea and vomiting (Acute) Diarrhea (Acute) Viral gastroenteritis (Acute) Medical History Dysuria Hepatitis C History of intravenous drug use in remission History of opioid abuse LGSIL (low grade squamous intraepithelial dysplasia) 04/15/2021 screening Pap LGSIL. 05/01/2021. Normal appearing colposcopy. No biopsies taken. Recommend repeat pap PP Low TSH level Marijuana smoker Optic neuritis Urinary frequency UTI (urinary tract infection) Vaginal irritation Surgical History H/O umbilical hernia repair S/P hernia repair Social History Smoking/Tobacco Use Status: Former Tobacco Use Smoking risk assessment performed?: Yes Alcohol Intake: current Alcohol Intake frequency: holidays/special occasions only Drug use: Current Sobriety Substance use type: does not use Details: clean/sober for 7 years Reports about 5 cigarettes a week since giving . Do you feel safe at home: Yes Do you feel safe in your relationship?: Yes History History 4 Para 3 Hx # Term Pregnancies 3 Multiple births 0 Hx # Pregnancies 0 Ectopic pregnancies 0 AB induced 1 Hx Number of Living Children 3 AB spontaneous 0 Past Pregnancies Del. Date GA/Weeks # Preg Succ Route Wgt Sex Labor Lgth Anesth esia Location Prov Complic Unknown 38 No Yes vaginal Female 11hrs 19oz [facility] [place] [facility]ang [facility] 04/26/11 40 No vaginal 3345.244 g Male 36 hrs [facility] 09/13/14 41 No vaginal 3600.389 g Female 12 hrs [facility] Delivery Date: Last Updated by: JUAREZ Hart; Delivery Date: 04/26/11 Last Updated by: Susan Richardson IOL for PROM at term, 36 hrs labor w/epidural, GBS negative. Nml , baby w/GBS meningitis at 3 weeks of age, is ok now. Ronald Delivery Date: 09/13/14 Last Updated by: Susan Richardson IOL for postdates; epidural. GBS neg. Nml Carabella Exam Const General: cooperative Nutritional Appearance: average body habitus Orientation: alert, awake and oriented x3 HENMT Head: normal to inspection Ears: external ears normal Mouth: moist mucous membranes Eyes Pupils: PERRL EOM: EOM intact bilaterally and No nystagmus Neck Neck: full ROM and no tracheal deviation Chest Chest: normal inspection of the chest Resp Auscultation: clear to auscultation bilaterally Cardio Rate: regular rate Rhythm: regular rhythm GI Inspection: normal to inspection Palpation: soft, no guarding, not rigid and nontender Back/Spine/Pelvis Back: No no CVA tenderness Thoracic/Lumbar Spine: thoracic and lumbar spine normal to inspection Skin General skin exam: no rashes or lesions noted Neuro General: patient alert, patient awake and patient oriented x3 Cranial Nerves: CN's II-XI intact bilaterally, PERRL and no nystagmus Cognition: normal cognition Motor: muscle tone normal throughout and strength 5/5 throughout Sensory Exam: no sensory deficits noted Extrem General: normal to inspection Course Reevaluation(s) Initial Evaluation: This is a 32-year-old female who presents with nausea vomiting and diarrhea. Likely a viral gastroenteritis. We will give some IV fluids and nausea medications to treat her symptoms. We will get broad labs look for electrolyte or metabolic cause of the patient's symptoms. We will get biliary labs to evaluate for hepatitis, pancreatitis, or other biliary disease. No abdominal tenderness or fever and no concern for intra-abdominal abscess at this time so no role for CT imaging of the abdomen pelvis at this time. We will check a test. Could represent GERD/gastritis as well and will give some medications to treat this. Will await initial testing and reevaluate. Vital Signs Vital signs: Vital Signs Temperature 36.6 C 10/12/22 09:23 Pulse 69 10/12/22 09:23 Respiratory Rate 16 10/12/22 09:23 Blood Pressure 140/50 L 10/12/22 09:23 Pulse Oximetry 98 10/12/22 09:23 Temperature 36.6 C 10/12/22 09:23 Temperature Source Oral 10/12/22 09:23 Pulse 69 10/12/22 09:23 Respiratory Rate 16 10/12/22 09:23 Respiratory Effort Normal, Non-Labored 10/12/22 09:28 Blood Pressure 140/50 L 10/12/22 09:23 Blood Pressure Position Sitting 10/12/22 09:23 Pulse Oximetry 98 10/12/22 09:23 Oxygen Delivery Method Room Air 10/12/22 09:23 Oxygen Flow Rate 0 10/12/22 09:23 Pain Level 0 10/12/22 09:23 PAWSS Have you Been Recently Intoxicated or Drunk Within the Last 30 days?: Yes Have you Ever Experienced Previous Episodes of Alcohol Withdrawal?: No Have you ever Experienced Withdrawal Seizures?: No Have you ever Experienced Delirium Tremens(DT)s?: No Have you ever undergone Alcohol Rehabilitation Treatment (i.e, inpt ot outpatient treatment programs)?: No Have you ever Experienced Blackouts?: No Have you ever Combined Alcohol with other Downers within the last 90 days?: No Have you ever Combined Alcohol with any other Substance of Abuse during the last 90 days?: No Positive Blood Alcohol level on Presentation? [PCS.BAL]: No Evidence of Increased Autonomic Activity (i.e. HR>120, tremor, sweating, agitation, nausea)?: No Result: 1
[2022-10-12 09:54] LABS: Abs Immature Grans 0.01 10^3/uL (0.0-0.06); Absolute Basophil Count 0.04 10^3/uL (0.0-0.2); Absolute Eosinophil Count 0.15 10^3/uL (0.0-0.7); Absolute Monocyte Count 0.35 10^3/uL (0.1-0.8); Basophils % 0.9; Eosinophils % 3.4; HCT 37.5 % (36.0-46.0); HGB 12.7 g/dL (11.2-15.7); Immature Grans % 0.2; Lymphocytes % 33.7; MCH 29.1 pg (27.0-33.0); MCHC 33.9 % (32.0-36.0); MCV 86 fL (80-95); MPV 9.3 fL (8.0-11.0); Monocytes % 7.9; Neutrophils % 53.9; Platelet Count 220 10^3/uL (130-400); RBC 4.36 10^6/uL (3.93-5.22); RDW 13.9 % (11.7-14.6); RDW-SD 43.5 fL; WBC 4.45 10^3/uL (4.4-10.8)
[2022-10-12] MEDS: Famotidine 20 MG/2 ML VIAL IVP (10:04)
[2022-10-12] MEDS: Ondansetron 4 MG/2 ML VIAL IVP (10:04)
[2022-10-12] MEDS: Lactated Ringers 1,000 ML 1000 ML IV (10:04)
[2022-10-12] MEDS: Mylanta Suspension 30 ML CUP (10:04)
[2022-10-12 10:09] LABS: ALT 20 U/L (14-59); AST 23 U/L (15-37); Albumin 4.1 g/dL (3.4-5.0); Alkaline Phosphatase 49 U/L (46-116); Anion Gap 9.3 mmol/L (3-11); BUN 7 mg/dL (7-18); Bilirubin, Total 0.3 mg/dL (0.2-1.0); CO2 24.7 mmol/L (21.0-32.0); CREATININE 0.8 mg/dL (0.55-1.02); Calcium 8.6 mg/dL (8.5-10.1); Chloride 104 mmol/L (98-107); Estimated GFR 100.96 (mL/min/1.73m2); Glucose 95 mg/dL (74-106); Lipase 16 U/L (16-77); Magnesium 1.9 mg/dL (1.8-2.4); Potassium 3.5 mmol/L (3.5-5.1); Sodium 138 mmol/L (136-145); Total Protein 7.9 g/dL (6.4-8.2)
[2022-10-12 10:18] LABS: HCG Qual (Serum) Negative
[2022-10-12 10:57] LABS: COVID-19 PCR Negative (Negative); Influenza A PCR Negative (Negative); Influenza B PCR Negative (Negative); RSV PCR Negative (Negative)
[2022-10-12 10:58] LABS: Source Nasopharynx
[2022-10-12 11:37] VITALS: BP 135/62; PULSE 69; RESP 16; TEMP 36.6; O2SAT 98
== END 2022-10-12 11:39 | disposition home or self-care (01) ==
PROVIDERS: Emergency Provider Student in an Organized Health Care Education/Training Program; PCP Family Medicine
DX: R11.2 Nausea with vomiting, unspecified (principal); R19.7 Diarrhea, unspecified; A08.4 Viral intestinal infection, unspecified
CPT/HCPCS: 36415; 80053; 83690; 87637; 96361; 96374; 96375; 99284; 83735; 84703; 85025; J2405

== ENCOUNTER 2022-11-24 12:20 | Emergency (ER) | payer MEDICAID, SELFPAY ==
[2022-11-24 12:24] VITALS: BP 128/54; PULSE 95; RESP 18; TEMP 37.3; O2SAT 98
[2022-11-24 13:25] LABS: Abs Immature Grans 0.01 10^3/uL (0.0-0.06); Absolute Basophil Count 0.08 10^3/uL (0.0-0.2); Absolute Eosinophil Count 0.09 10^3/uL (0.0-0.7); Absolute Lymphocyte Count 2.16 10^3/uL (1.2-3.4); Absolute Monocyte Count 0.33 10^3/uL (0.1-0.8); Absolute Neutrophil Count 1.68 10^3/uL (1.2-6.7); Basophils % 1.8; Eosinophils % 2.1; HCT 37.3 % (36.0-46.0); HGB 12.4 g/dL (11.2-15.7); Immature Grans % 0.2; Lymphocytes % 49.7; MCH 28.3 pg (27.0-33.0); MCHC 33.2 % (32.0-36.0); MCV 85 fL (80-95); MPV 8.7 fL (8.0-11.0); Monocytes % 7.6; Neutrophils % 38.6; Platelet Count 260 10^3/uL (130-400); RBC 4.38 10^6/uL (3.93-5.22); RDW 14.9 % (11.7-14.6); RDW-SD 46.6 fL; WBC 4.35 10^3/uL (4.4-10.8)
[2022-11-24] MEDS: Lactated Ringers 1,000 ML 1000 ML IV (13:30)
--- NOTE | 2022-11-24 13:31 | ED.GENADUL_ITS ---
Discharge Plan Disposition Patient Disposition: Home Condition: Good Discharge Details Clinical Impression: Muscle spasm, Acute dehydration, Nausea Primary Care Provider: Francisco Mayorga ED Provider: Taylor Espinal Home Meds and New Rx's Prescriptions: New ondansetron 4 mg tablet,disintegrating 4 mg PO Q6H PRN (Reason: nausea and vomiting) Qty: 10 0RF Continued clonazepam 0.5 mg tablet 0.5 mg PO BID Patient Comments: TAKE 1 TABLET BY MOUTH TWICE DAILY levonorgestrel-ethinyl estrad [Jolessa] 0.15 mg-30 mcg (91) tablets,dose pack,3 month 1 tab PO DAILY Qty: 91 3RF ondansetron 4 mg tablet,disintegrating 4 mg PO Q6H PRNQty: 20 0RF Patient Comments: not taking famotidine 40 mg tablet 40 mg PO DAILY Qty: 30 1RF Patient Comments: not taking loperamide [Imodium A-D] 2 mg capsule 2 mg PO QID PRN (Reason: loose stool) Qty: 30 0RF Patient Comments: not taking Discharge Instructions Instructions: Dehydration (ED), Acute Nausea and Vomiting (ED) Additional Instructions: Your labs are reassuring here today. However, I am concerned that your general feeling of unwell, fatigue, nausea and muscle spasms may be associated with dehydration. Please continue to encourage hydration. You have been prescribed Zofran, this available at your pharmacy. You may use this for any recurrent nausea or vomiting. Please follow-up with primary care in 1 week for reevaluation. If you develop fever/chills, abdominal pain, worsening spasms, fevers or other new/worsening symptom please seek care urgently once again. Referrals: Francisco Mayorga MD [Primary Care Provider] - Discharge Data Discharge Date/Time-TO BE ENTERED AT DEPARTURE: 11/24/22 15:51 Medical Decision Making Patient is a pleasant 32-year-old female with past medical history of hepatitis C, IVDU in remission, optic neuritis, presenting today with chief complaint of nausea, muscle cramps x24 hours. States that she was in a pool for prolonged period of time and says that she was drinking alcohol but did not have any fluids. The following day she began feeling unwell with some nausea and feels like her dehydration just progressively worsened. No vomiting. States that her baseline bowel states 2 also between diarrhea and constipation no acute change in this. She denies any significant abdominal pain. No vaginal discharge. No fevers or chills. Has been having cramps in the left calf and toes. On exam, patient appears nontoxic. She is hemodynamically stable. She not having any shortness of breath or chest pain. Pain is not reproducible on exam and sounds it was only associated with cramping. I do not see indication based on activity level, history, risk factors and symptoms that she has DVT. No lower extremity swelling, no palpable cord. She is 2+ distal pulses. Abdomen is benign. Will give Zofran to help with nausea. We will begin hydrating the patient. Will evaluate for any potential electrolyte abnormalities. Labs reviewed, no significant abnormality. Patient feeling improved after zofran and IV fluids. Fluids are slow going in. She is hydrating well, began requesting d/c to home. Unable to obtian UA at this time. She denies , denies UTI sxs. She does not have clinical findings for PE, has a negative Wells. She has local PCP and is able to f/u htis week for reevaluation. Will continue with zofran. Encouraged hydration. Strict return precautions discussed. Pt. d/c to home in stable condition. All o twyla questions and cocnerns were addressed. HPI General Date/Time Provider Initiated Documentation: 11/24/22 12:55 . Limitations to Documentation: no limitations . Information obtained by: patient and RN notes reviewed . History of Present Illness 32 year old F presents to the emergency department with the chief complaint of cramping in toes, nausea, described as moderate, Quality is described as aching (spasm, not currently but intermittent over past 24hrs), and is localized to the left, right and lower extremity (primarily in the toes). Patient reports no radiation. Patient started experiencing this day(s) and it has been intermittent. No relieving factors improve symptom(s), Other factors that worsen symptoms (links with dehydration after ETOH intake) . Patient notes loss of appetite, malaise and nausea/vomiting (nausea); denies confusion, chest pain, cough, fever/chills, headaches, rash and shortness of maira ath. Patient did receive the following treatments prior to arrival, none Related Data Home Medications Medication Instructions Recorded Confirmed clonazepam 0.5 mg tablet 0.5 mg PO BID 10/21/21 11/24/22 levonorgestrel 0.15 mg-ethinyl 1 tab PO DAILY #91 dose pk 02/03/22 11/24/22 estradiol 30 mcg tablets,3 mos pack(91) (Kellya) famotidine 40 mg tablet 40 mg PO DAILY #30 tabs 10/12/22 loperamide 2 mg capsule (Imodium 2 mg PO QID PRN loose stool #30 10/12/22 A-D) caps ondansetron 4 mg disintegrating 4 mg PO Q6H PRN #20 tabs 10/12/22 tablet ondansetron 4 mg disintegrating 4 mg PO Q6H PRN nausea and 11/24/22 tablet vomiting #10 tabs Previous Rx's Medication Instructions Recorded levonorgestrel 0.15 mg-ethinyl 1 tab PO DAILY #91 dose pk 02/03/22 estradiol 30 mcg tablets,3 mos pack(91) (Danyadian) famotidine 40 mg tablet 40 mg PO DAILY #30 tabs 10/12/22 loperamide 2 mg capsule (Imodium 2 mg PO QID PRN loose stool #30 10/12/22 A-D) caps ondansetron 4 mg disintegrating 4 mg PO Q6H PRN #20 tabs 10/12/22 tablet ondansetron 4 mg disintegrating 4 mg PO Q6H PRN nausea and 11/24/22 tablet vomiting #10 tabs Allergies Allergy/AdvReac Type Severity Reaction Status Date / Time No Known Allergies Allergy Verified 11/24/22 12:28 General Stated Complaint: Nausea/Vomit/Diar SUDHA: 3 Review of Systems Constitutional Constitutional: Reports as per HPI, Denies chills, Denies fever(s) and Denies poor appetite ENT Ears, Nose, Mouth, and Throat: Denies dizziness Cardiovascular Cardiovascular: Reports as per HPI, Denies dyspnea and Denies dyspnea on exertion Respiratory Respiratory: Reports as per HPI, Denies chest congestion, Denies cough, Denies dyspnea and Denies dyspnea on exertion Gastrointestinal Gastrointestinal: Reports as per HPI, Denies abdominal pain, Denies diarrhea and Denies vomiting Musculoskeletal Musculoskeletal: Reports as per HPI Integumentary/Breasts Skin/Breast: Reports as per HPI and Denies rash Neurologic Neurologic: Reports as per HPI and Denies dizziness PFSH All Active Problems (Updated 11/24/22 @ 15:37 by DEVON Kate) Muscle spasm (Acute) Acute dehydration (Acute) Nausea (Acute) Medical History Dysuria Hepatitis C History of intravenous drug use in remission History of opioid abuse LGSIL (low grade squamous intraepithelial dysplasia) 04/15/2021 screening Pap LGSIL. 05/01/2021. Normal appearing colposcopy. No biopsies taken. Recommend repeat pap PP Low TSH level Marijuana smoker Optic neuritis Urinary frequency UTI (urinary tract infection) Vaginal irritation Surgical History H/O umbilical hernia repair S/P hernia repair Social History Smoking/Tobacco Use Status: Current every day Tobacco Type: e-cigarettes Smoking risk assessment performed?: Yes Alcohol Intake: current Alcohol Intake frequency: holidays/special occasions only Drug use: Daily Substance use type: does not use, former substance user and marijuana Details: clean/sober for 7 years Reports about 5 cigarettes a week since giving . Housing: other Do you feel safe at home: Yes Do you feel safe in your relationship?: Yes History History 4 Para 3 Hx # Term Pregnancies 3 Multiple births 0 Hx # Pregnancies 0 Ectopic pregnancies 0 AB induced 1 Hx Number of Living Children 3 AB spontaneous 0 Past Pregnancies Del. Date GA/Weeks # Preg Succ Route Wgt Sex Labor Lgth Anesth esia Location Prov Complic Unknown 38 No Yes vaginal Female 11hrs 19oz [facility] [place] Pang CNM 04/26/11 40 No vaginal 3345.244 g Male 36 hrs [facility] H - Radha 09/13/14 41 No vaginal 3600.389 g Female 12 hrs [facility] Delivery Date: Last Updated by: JUAREZ Hart; Delivery Date: 04/26/11 Last Updated by: Susan Richardson IOL for PROM at term, 36 hrs labor w/epidural, GBS negative. Nml , baby w/GBS meningitis at 3 weeks of age, is ok now. Ronald Delivery Date: 09/13/14 Last Updated by: Susan Richardson IOL for postdates; epidural. GBS neg. Nml Carabella Exam Const General: cooperative, healthy appearing, comfortable, no acute distress and well developed Nutritional Appearance: average body habitus and well nourished Orientation: alert, awake and oriented x3 HENMT Head: normal to inspection Ears: hearing grossly normal bilaterally Mouth: mucous membranes dry Chest Chest: normal inspection of the chest, normal palpation of entire chest wall and no crepitus Resp Effort & Inspection: normal respiratory effort, able to speak in complete sentences and no respiratory distress Auscultation: clear to auscultation bilaterally, no rales, no rhonchi and no wheezes Cardio Rate: regular rate Rhythm: regular rhythm Heart Sounds: S1 normal and S2 normal GI Inspection: normal to inspection, no edema and non-distended Palpation: soft, no hepatosplenomegaly, not firm, no guarding, not rigid and nontender Auscultation: normal bowel sounds Back/Spine/Pelvis Back: no CVA tenderness Thoracic/Lumbar Spine: thoracic and lumbar spine normal to inspection Skin General skin exam: no rashes or lesions noted Trauma: no lacerations or abrasions Neuro General: patient alert, patient awake and patient oriented x3 Cognition: normal cognition Speech: speech normal Gait: normal gait Motor: muscle tone normal throughout, strength 5/5 throughout, no movement abnormalities noted and no fasciculations Sensory Exam: no sensory deficits noted Extrem General: normal to inspection, capillary refill normal, no pedal edema, no calf tenderness and normal gait Psych Appearance: grossly normal and well kempt Mental Status: mental status grossly normal Speech and Movement: speech and movement normal Course Vital Signs Vital signs: Vital Signs Temperature 37.3 C 11/24/22 12:24 Pulse 95 H 11/24/22 12:24 Respiratory Rate 18 11/24/22 12:24 Blood Pressure 128/54 L 11/24/22 12:24 Pulse Oximetry 98 11/24/22 12:24 Temperature 37.3 C 11/24/22 12:24 Temperature Source Temporal Artery Scan 11/24/22 12:24 Pulse 95 H 11/24/22 12:24 Respiratory Rate 18 11/24/22 12:24 Respiratory Effort Normal, Non-Labored 11/24/22 12:29 Blood Pressure 128/54 L 11/24/22 12:24 Blood Pressure Position Sitting 11/24/22 12:24 Pulse Oximetry 98 11/24/22 12:24 Oxygen Delivery Method Room Air 11/24/22 12:24 Oxygen Flow Rate 0 11/24/22 12:24 Lab/Test Results Lab/Test Results: Laboratory Tests Range/Units 11/24/22 13:20 WBC (4.4-10.8) 10^3/uL 4.35 L RBC (3.93-5.22) 10^6/uL 4.38 Hgb (11.2-15.7) g/dL 12.4 Hct (36.0-46.0) % 37.3 MCV (80-95) fL 85 MCH (27.0-33.0) pg 28.3 MCHC (32.0-36.0) % 33.2 RDW (11.7-14.6) % 14.9 H Plt Count (130-400) 10^3/uL 260 MPV (8.0-11.0) fL 8.7 Immature Gran % 0.2 Neutrophils % 38.6 Lymphocytes % 49.7 Monocytes % 7.6 Eosinophils % 2.1 Basophils % 1.8 Nucleated RBC % (0.0-0.3) % 0.0 Absolute Neutrophils (1.2-6.7) 10^3/uL 1.68 Absolute Lymphocytes (1.2-3.4) 10^3/uL 2.16 Absolute Monocytes (0.1-0.8) 10^3/uL 0.33 Absolute Eosinophils (0.0-0.7) 10^3/uL 0.09 Absolute Basophils (0.0-0.2) 10^3/uL 0.08 PAWSS Have you Been Recently Intoxicated or Drunk Within the Last 30 days?: No Have you Ever Experienced Previous Episodes of Alcohol Withdrawal?: No Have you ever Experienced Withdrawal Seizures?: No Have you ever Experienced Delirium Tremens(DT)s?: No Have you ever undergone Alcohol Rehabilitation Treatment (i.e, inpt ot outpatient treatment programs)?: No Have you ever Experienced Blackouts?: No Have you ever Combined Alcohol with other Downers within the last 90 days?: No Have you ever Combined Alcohol with any other Substance of Abuse during the last 90 days?: No Positive Blood Alcohol level on Presentation? [PCS.BAL]: No Evidence of Increased Autonomic Activity (i.e. HR>120, tremor, sweating, agitation, nausea)?: No Result: 0
[2022-11-24 13:44] LABS: Lipase 27 U/L (16-77)
[2022-11-24] MEDS: Ondansetron 4 MG/2 ML VIAL IVP (13:46)
[2022-11-24 13:49] LABS: ALT 15 U/L (14-59); AST 20 U/L (15-37); Albumin 4.4 g/dL (3.4-5.0); Alkaline Phosphatase 64 U/L (46-116); Anion Gap 10.2 mmol/L (3-11); BUN 9 mg/dL (7-18); Bilirubin, Total 0.4 mg/dL (0.2-1.0); CO2 24.8 mmol/L (21.0-32.0); Calcium 8.9 mg/dL (8.5-10.1); Chloride 103 mmol/L (98-107); Estimated GFR 77.24 (mL/min/1.73m2); Glucose 91 mg/dL (74-106); Magnesium 1.9 mg/dL (1.8-2.4); Potassium 3.6 mmol/L (3.5-5.1); Sodium 138 mmol/L (136-145); Total Protein 8.7 g/dL (6.4-8.2)
[2022-11-24] MEDS: Ketorolac 15 MG/ML VIAL IVP (14:49)
== END 2022-11-24 15:51 | disposition home or self-care (01) ==
PROVIDERS: Emergency Provider Physician Assistant; PCP Family Medicine
DX: M62.838 Other muscle spasm (principal); E86.0 Dehydration; R11.0 Nausea; R53.1 Weakness; F17.290 Nicotine dependence, other tobacco product, uncomplicated
CPT/HCPCS: 80053; 81025; 83690; 96365; 96367; 99283; 83735; 85025; J1885; J2405

== ENCOUNTER 2022-12-04 19:35 | Outpatient (REF) | payer MEDICAID, SELFPAY | END 2022-12-04 19:36 | disposition home or self-care (01) | LOC: NCHCN 19:35 | PROVIDERS: PCP Family Medicine; Visit Provider Family Medicine | DX: R35.0 Frequency of micturition (principal) | CPT/HCPCS: 87077; 87086 ==

== ENCOUNTER 2023-01-10 13:54 | Outpatient (REF) | payer MEDICAID, SELFPAY | END 2023-01-10 13:55 | disposition home or self-care (01) | LOC: LBN 13:54 | PROVIDERS: PCP Family Medicine; Visit Provider Family Medicine | DX: R35.0 Frequency of micturition (principal) | CPT/HCPCS: 87077; 87086; 87186 ==

== ENCOUNTER 2023-01-30 13:37 | Outpatient (REF) | payer MEDICAID, SELFPAY ==
[2023-01-30 14:19] LABS: Source Nasal/Nares
[2023-01-30 15:48] LABS: COVID-19 PCR Negative (Negative)
== END 2023-01-30 13:38 | disposition home or self-care (01) ==
LOC: NCHCN 13:37
PROVIDERS: PCP Family Medicine; Visit Provider Physician Assistant Medical
DX: J02.9 Acute pharyngitis, unspecified (principal); Z20.822 Contact with and (suspected) exposure to COVID-19
CPT/HCPCS: 87635; 87070

== ENCOUNTER 2023-02-05 18:14 | Outpatient (REF) | payer MEDICAID, SELFPAY ==
[2023-02-05 20:55] LABS: Absolute Basophil Count 0.04 10^3/uL (0.0-0.2); Absolute Eosinophil Count 0.04 10^3/uL (0.0-0.7); Absolute Lymphocyte Count 2.19 10^3/uL (1.2-3.4); Absolute Monocyte Count 0.42 10^3/uL (0.1-0.8); Absolute Neutrophil Count 2.83 10^3/uL (1.2-6.7); Basophils % 0.7; Eosinophils % 0.7; HCT 33.4 % (36.0-46.0); HGB 11.4 g/dL (11.2-15.7); Lymphocytes % 39.7; MCH 30.3 pg (27.0-33.0); MCHC 34.1 % (32.0-36.0); MCV 89 fL (80-95); MPV 9.9 fL (8.0-11.0); Monocytes % 7.6; Neutrophils % 51.3; Platelet Count 282 10^3/uL (130-400); RBC 3.76 10^6/uL (3.93-5.22); RDW 13.4 % (11.7-14.6); RDW-SD 43.9 fL; WBC 5.52 10^3/uL (4.4-10.8)
[2023-02-05 21:27] LABS: C-Reactive Protein 0.14 mg/dL (0.0-0.3); TSH (W/Ref FT4) 0.62 uIU/mL (0.36-3.74)
[2023-02-06 21:35] LABS: ALT 13 U/L (14-59); AST 17 U/L (15-37); Albumin 4.3 g/dL (3.4-5.0); Alkaline Phosphatase 40 U/L (46-116); Anion Gap 12.8 mmol/L (3-11); BUN 9 mg/dL (7-18); Bilirubin, Total 0.3 mg/dL (0.2-1.0); CO2 22.2 mmol/L (21.0-32.0); CREATININE 0.8 mg/dL (0.55-1.02); Calcium 9.4 mg/dL (8.5-10.1); Chloride 103 mmol/L (98-107); Estimated GFR 100.96 (mL/min/1.73m2); Glucose 85 mg/dL (74-106); Sodium 138 mmol/L (136-145); Total Protein 7.7 g/dL (6.4-8.2)
[2023-02-09 09:44] LABS: EBNA IgG Positive (Negative); EBV Interpretation (See Note); VCA IgG Positive (Negative); VCA IgM Negative (Negative)
== END 2023-02-05 18:15 | disposition home or self-care (01) ==
LOC: NCHCN 18:14
PROVIDERS: PCP Family Medicine; Visit Provider Family Medicine
DX: J11.1 Influenza due to unidentified influenza virus with other respiratory manifestations (principal)
CPT/HCPCS: 80053; 84443; 85025; 86140; 86664; 86665

== ENCOUNTER 2023-02-10 14:15 | Emergency (ER) | payer MEDICAID, SELFPAY ==
[2023-02-10 14:22] VITALS: BP 150/69; PULSE 100; RESP 16; TEMP 37.1; O2SAT 98
--- NOTE | 2023-02-10 14:41 | ED.GENADUL_ITS ---
Discharge Plan Disposition Patient Disposition: Home Condition: Good Discharge Details Clinical Impression: Muscle spasm Primary Care Provider: Francisco Mayorga ED Provider: Julia Deshpande Home Meds and New Rx's Prescriptions: New cyclobenzaprine 5 mg tablet 5 mg PO TID PRN (Reason: muscle spasm) Qty: 20 0RF No Action clonazepam 0.5 mg tablet 0.5 mg PO DAILY Patient Comments: TAKE 1 TABLET BY MOUTH TWICE DAILY levonorgestrel-ethinyl estrad [Jolessa] 0.15 mg-30 mcg (91) tablets,dose pack,3 month 1 tab PO DAILY Qty: 91 3RF ondansetron 4 mg tablet,disintegrating 4 mg PO Q6H PRN (Reason: nausea and vomiting) Qty: 10 0RF Patient Comments: Not taking 02/10/23 CT ondansetron 4 mg tablet,disintegrating 4 mg PO Q6H PRNQty: 20 0RF Patient Comments: not taking 02/10/23 CT famotidine 40 mg tablet 40 mg PO DAILY Qty: 30 1RF Patient Comments: not taking 02/10/23 CT loperamide [Imodium A-D] 2 mg capsule 2 mg PO QID PRN (Reason: loose stool) Qty: 30 0RF Patient Comments: not taking 02/10/23 CT Discharge Instructions Instructions: Muscle Spasm (ED) Additional Instructions: Take flexeril up to every 8 hours for muscle spasm. Take ibuprofen and tylenol over the counter for pain; follow the directions on the bottle. You can take antihistamines such as cetirizine to help with the fluid in your ears. Call your primary care doctor today to schedule an appointment within one week to follow up on your visit here. Return to the emergency department for new or worsening symptoms, including fever, severe/worsening pain, or if you have any other concerns. Stand Alone Forms: Work Release Referrals: Francisco Mayorga MD [Primary Care Provider] - Medical Decision Making 32yo female presenting with neck and shoulder pain for one week. Slightly tachycardiac on arrival, vital signs otherwise reassuring. No fever or meningeal signs, non-toxic appearing. Reproducible tenderness to palpation and palpable spam of neck and shoulder muscles. Not concerning for meningitis, intracranial mass, or cervical spine injury; would not puruse labs or imaging. Will treat with toradol, flexeril. Discharged home; discharge instructions including return precautions were reviewed with patient who verbalized understanding. All questions were answered and they are in full agreement with the plan. HPI General Mode of arrival: ambulatory . Date/Time Provider Initiated Documentation: 02/10/23 14:26 . Limitations to Documentation: no limitations . Information obtained by: patient . HPI Narrative: 32yo female presenting with neck and shoulder pain for one week. Three weeks ago had URI symptoms and body aches, these have since resolved aside from mild cough. About two weeks into her illness she began to have posterior neck pain radiating bilaterally to her shoulders, worse with palpation and movement. Minimally improved with home Tylenol. Pain is dull, sometimes burning, and progressively worsens throughout the day. Often develops a dull diffuse headache by the end of the day. No morning headaches. No nausea, vomiting, or fevers. No numbness, tingling, or focal weakness. No recent trauma or injury. She is otherwise in her usual state of health. Related Data Home Medications Medication Instructions Recorded Confirmed clonazepam 0.5 mg tablet 0.5 mg PO DAILY 10/21/21 02/10/23 levonorgestrel 0.15 mg-ethinyl 1 tab PO DAILY #91 dose pk 02/03/22 02/10/23 estradiol 30 mcg tablets,3 mos pack(91) (Lilly) famotidine 40 mg tablet 40 mg PO DAILY #30 tabs 10/12/22 loperamide 2 mg capsule (Imodium 2 mg PO QID PRN loose stool #30 10/12/22 A-D) caps ondansetron 4 mg disintegrating 4 mg PO Q6H PRN #20 tabs 10/12/22 tablet ondansetron 4 mg disintegrating 4 mg PO Q6H PRN nausea and 11/24/22 tablet vomiting #10 tabs cyclobenzaprine 5 mg tablet 5 mg PO TID PRN muscle spasm #20 02/10/23 tabs Previous Rx's Medication Instructions Recorded levonorgestrel 0.15 mg-ethinyl 1 tab PO DAILY #91 dose pk 02/03/22 estradiol 30 mcg tablets,3 mos pack(91) (Lilly) famotidine 40 mg tablet 40 mg PO DAILY #30 tabs 10/12/22 loperamide 2 mg capsule (Imodium 2 mg PO QID PRN loose stool #30 10/12/22 A-D) caps ondansetron 4 mg disintegrating 4 mg PO Q6H PRN #20 tabs 10/12/22 tablet ondansetron 4 mg disintegrating 4 mg PO Q6H PRN nausea and 11/24/22 tablet vomiting #10 tabs cyclobenzaprine 5 mg tablet 5 mg PO TID PRN muscle spasm #20 02/10/23 tabs Allergies Allergy/AdvReac Type Severity Reaction Status Date / Time No Known Allergies Allergy Verified 02/10/23 14:27 General Stated Complaint: Nk/Back Pain SUDHA: 4 Review of Systems Narrative: see HPI PFSH All Active Problems (Updated 02/10/23 @ 14:41 by Julia Deshpande MD) Muscle spasm (Acute) Medical History Dysuria Hepatitis C History of intravenous drug use in remission History of opioid abuse LGSIL (low grade squamous intraepithelial dysplasia) 04/15/2021 screening Pap LGSIL. 05/01/2021. Normal appearing colposcopy. No biopsies taken. Recommend repeat pap PP Low TSH level Marijuana smoker Optic neuritis Urinary frequency UTI (urinary tract infection) Vaginal irritation Surgical History H/O umbilical hernia repair S/P hernia repair Social History Smoking/Tobacco Use Status: Former Tobacco Use Smoking risk assessment performed?: Yes Alcohol Intake: current Alcohol Intake frequency: holidays/special occasions only Drug use: Daily Substance use type: does not use, former substance user and marijuana Details: clean/sober for 7 years Reports about 5 cigarettes a week since giving . Housing: other Do you feel safe at home: Yes Do you feel safe in your relationship?: Yes History History 4 Para 3 Hx # Term Pregnancies 3 Multiple births 0 Hx # Pregnancies 0 Ectopic pregnancies 0 AB induced 1 Hx Number of Living Children 3 AB spontaneous 0 Past Pregnancies Del. Date GA/Weeks # Preg Succ Route Wgt Sex Labor Lgth Anesth esia Location Prov Complic Unknown 38 No Yes vaginal Female 11hrs 19oz [facility] Pang CNM 04/26/11 40 No vaginal 3345.244 g Male 36 hrs [facility] H - Radha 09/13/14 41 No vaginal 3600.389 g Female 12 hrs [facility] Delivery Date: Last Updated by: JUAREZ Hart; Delivery Date: 04/26/11 Last Updated by: Susan Richardson IOL for PROM at term, 36 hrs labor w/epidural, GBS negative. Nml , baby w/GBS meningitis at 3 weeks of age, is ok now. Ronald Delivery Date: 09/13/14 Last Updated by: Susan Richardson IOL for postdates; epidural. GBS neg. Nml Carabella Exam Narrative Exam Narrative: General: Alert, well appearing, well nourished, in no acute distress. Head: Normocephalic, atraumatic. No temporal tenderness. Neck: Trachea midline, Neck supple. Spasm and marked tenderness to cervical paraspinal muscles bilateral and bilateral trapezius. Able to flex and extend neck without significant pain. ENT: MMM. No oropharygeal lesions or exudate. TM's clear. Cardiac: RRR, no murmurs appreciated Resp: No respiratory distress. CTAB. Abd: Soft, non-distended, nontender : No suprapubic tenderness. Extremities: No deformities. No peripheral edema. Neuro: GCS 15. PERRL. EOMI. Fluent speech, no dysarthria. Normal sensation in V1, V2, and V3 segments bilaterally. No asymmetry, no nasolabial fold flattening. Motor- 5/5 strength symmetric bilateral upper and lower extremities Sensation- Intact to light touch and symmetric multiple dermatomes including upper and lower extremities Coordination- No dysmetria on finger to nose Gait/station: Normal stance. No truncal ataxia. Steady gait with equal normal steps Course Vital Signs Vital signs: Vital Signs Temperature 37.1 C 02/10/23 14:22 Pulse 100 H 02/10/23 14:22 Respiratory Rate 16 02/10/23 14:22 Blood Pressure 150/69 H 02/10/23 14:22 Pulse Oximetry 98 02/10/23 14:22 Temperature 37.1 C 02/10/23 14:22 Temperature Source Temporal Artery Scan 02/10/23 14:22 Pulse 100 H 02/10/23 14:22 Respiratory Rate 16 02/10/23 14:22 Respiratory Effort Normal 02/10/23 14:25 Blood Pressure 150/69 H 02/10/23 14:22 Blood Pressure Position Sitting 02/10/23 14:22 Pulse Oximetry 98 02/10/23 14:22 Oxygen Delivery Method Room Air 02/10/23 14:22 Oxygen Flow Rate 0 02/10/23 14:22 Pain Level 6 02/10/23 14:25 PAWSS Have you Been Recently Intoxicated or Drunk Within the Last 30 days?: No Have you Ever Experienced Previous Episodes of Alcohol Withdrawal?: No Have you ever Experienced Withdrawal Seizures?: No Have you ever Experienced Delirium Tremens(DT)s?: No Have you ever undergone Alcohol Rehabilitation Treatment (i.e, inpt ot outpatient treatment programs)?: No Have you ever Experienced Blackouts?: No Have you ever Combined Alcohol with other Downers within the last 90 days?: No Have you ever Combined Alcohol with any other Substance of Abuse during the last 90 days?: No Result: 0
[2023-02-10] MEDS: Ketorolac 15 MG/ML VIAL IM (14:50)
[2023-02-10] MEDS: Cyclobenzaprine 10 MG TAB 5 MG PO (14:50)
== END 2023-02-10 14:54 | disposition home or self-care (01) ==
PROVIDERS: Emergency Provider Student in an Organized Health Care Education/Training Program; PCP Family Medicine
DX: M62.838 Other muscle spasm (principal)
CPT/HCPCS: 96372; 99284; J1885

== ENCOUNTER → 2023-03-13 00:28 | Outpatient (CLI) | payer MEDICAID, SELFPAY ==
--- NOTE | 2023-03-13 | DI.MRI_ITS ---
Exam(s) MR LOWER EXTREMITY RT WO CLINICAL HISTORY: RT GREAT TOE PAIN, M79.676,GANGLION CYST, M67.40. TECHNIQUE: Multiplanar multisequence MRI was performed. CONTRAST MATERIAL: Noncontrast COMPARISON: Plain films of the right foot the same day FINDINGS: BONES/JOINTS: No fracture or contusion pattern. No bone lesion is identified.No joint effusion is pre sent. MUSCULOTENDINOUS STRUCTURES: No evidence of tendon tear. No fluid in the tendon sheath. SOFT TISSUES: Unremarkable. No evidence of cyst or mass. No soft tissue edema. IMPRESSION: No abnormality identified in the foot. No evidence of ganglion cyst. DATA REPOSITORY:
== END ==
PROVIDERS: PCP Family Medicine; Visit Provider Family Medicine
DX: M67.472 Ganglion, left ankle and foot (principal); M79.672 Pain in left foot
CPT/HCPCS: 73718

== ENCOUNTER → 2023-03-13 00:59 | Outpatient (CLI) | payer MEDICAID, SELFPAY ==
--- NOTE | 2023-03-13 08:15 | DI.RAD_ITS ---
Exam(s) XR FOOT LT COMPLETE EXAM: XR FOOT LT COMPLETE CLINICAL HISTORY: FIBROMA,EXOSTOSIS,D21.9. TECHNIQUE: 2D digital imaging was performed. Three views. COMPARISON: CR XR FOOT RT COMPLETE from 03/13/2023 FINDINGS: BONES: No acute fracture is present. No bony destructive lesion is seen. JOINTS: No dislocation present. SOFT TISSUE: Normal. IMPRESSION: Unremarkable radiographs of the left foot. DATA REPOSITORY: RADIATION DOSE DELIVERED:
--- NOTE | 2023-03-13 08:15 | DI.RAD_ITS ---
Exam(s) XR FOOT RT COMPLETE EXAM: XR FOOT RT COMPLETE CLINICAL HISTORY: cyst/fibroma/exostosis,RT FOOT PAIN,M79.671. TECHNIQUE: 2D digital imaging was performed. Three views. COMPARISON: CR RIGHT GREAT TOE from 05/13/2010 FINDINGS: BONES: No acute fracture is present. No bony destructive lesion is seen. JOINTS: No dislocation present. SOFT TISSUE: Normal. A BB was placed at the great toe adjacent to the distal lateral aspect of the p roximal phalanx. There is no visible soft tissue abnormality. IMPRESSION: Unremarkable radiographs of the right foot. No bone or soft tissue abnormality identified. DATA REPOSITORY: RADIATION DOSE DELIVERED:
== END ==
PROVIDERS: PCP Family Medicine; Visit Provider Podiatrist
DX: M67.471 Ganglion, right ankle and foot; M79.671 Pain in right foot; M79.672 Pain in left foot
CPT/HCPCS: 73630

== ENCOUNTER 2023-03-22 13:54 | Emergency (ER) | payer MEDICAID, SELFPAY ==
[2023-03-22 13:57] VITALS: BP 153/89; PULSE 78; RESP 15; TEMP 36.8; O2SAT 99
--- NOTE | 2023-03-22 13:59 | W.ED.GENAD ---
Discharge Plan Disposition Patient Disposition: Home Condition: Stable Discharge Details Clinical Impression: Shortness of breath, Closed contusion of liver, Hematuria Primary Care Provider: Francisco Mayorga ED Provider: Eugenia Griggs Home Meds and New Rx's Prescriptions: New albuterol sulfate 90 mcg/actuation aerosol powdr breath activated 3 inh inhalation Q4H PRNQty: 1 0RF Rx Instructions: Up to 3 puffs with spacer 5 minutes apart every 4 hours as needed for cough wheezing or shortness of breath. No Action clonazepam 0.5 mg tablet 0.5 mg PO DAILY Patient Comments: TAKE 1 TABLET BY MOUTH TWICE DAILY levonorgestrel-ethinyl estrad [Setlakin] 0.15 mg-30 mcg (91) tablets,dose pack,3 month See Rx Instructions .ROUTE .COMPLEX Qty: 91 3RF Dose Instruction: TAKE ONE TABLET BY MOUTH EVERY DAY Rx Instructions: TAKE ONE TABLET BY MOUTH EVERY DAY Discharge Instructions Instructions: Blunt Abdominal Injury (ED), Shortness of Breath (ED) Additional Instructions: 1. Avoid contact sports such as skiing or snowboarding for 6 weeks. 2. Return here if you develop any new or worrisome symptoms such as worsening pain or dizziness. 3. Call your primary care provider for a recheck. You will be contacted by the urologist for blood in the urine. 4. Use the inhaler plus spacer, 3 puffs 5 minutes apart every 4 hours as needed for cough or wheezing. Stand Alone Forms: Work Release Discharge Data Discharge Date/Time-TO BE ENTERED AT DEPARTURE: 03/22/23 17:48 Discharge Physician: Eugenia Griggs Medical Decision Making This is a 32-year-old female who presents with the sensation that she cannot take a deep breath and concerns for an exposure to COVID by a coworker. She does have a history of asthma but is not currently wheezing. She was complaining of a mild sore throat but has normal appearance of her tonsils and oropharynx. Her lungs are clear to auscultation and I cannot appreciate any wheezing. I will obtain a chest x-ray and a COVID flu and RSV. She has had a low-grade fever. She is also complaining of abdominal pain and cramping primarily in the left upper quadrant that began after she hit her abdomen against a vacuum condenser cleaner 2 days ago while carrying her 1-1/2-year-old. The patient is on oral control pills and has periods every 3 months. I have ordered a CT scan and notified the director of radiology that we are awaiting her renal function and test before obtaining chest x-ray or CT abdomen and pelvis. The patient has had nausea and vomiting but no diarrhea and denies any foreign travel or any unusual foods. No sick contacts with GI symptoms. It is possible that she does have COVID and is having primarily GI symptoms. She denies any change in taste or smell. I have ordered blood work including a test, CBC to evaluate for leukocytosis white count and H&H. I will check a comprehensive metabolic panel to check her electrolytes renal function and LFTs. I will check a lipase to rule out pancreatitis. I have ordered a urinalysis and test and Zofran for nausea and IV acetaminophen for pain. If she does have a splenic injury I will consult surgery. She is hemodynamically stable with a slightly elevated blood pressure normal pulse normal respiratory rate and she is also afebrile with a room air O2 sat of 99%. Differential Diagnosis Differential Diagnosis: Viral URI, COVID, atypical asthma, splenic injury, gastroenteritis Medical Records Medical records reviewed: Yes I reviewed the patient's medical records. Imaging Data Radiologic Study: Imaging: X-Ray (Chest x-ray) Radiologist's impression: No acute cardiopulmonary disease. 1700. I just received a call from Dr. Lovell the radiologist who is reading films currently and he thinks she has a contusion of her liver. I have updated the patient, showed her a screenshot of the image and I have paged general surgery for consult. Radiologic Study #2: Imaging: CT Scan (CT abdomen and pelvis with IV contrast) Radiologist's impression: V rad impression: No evidence of splenic injury or other acute findings. Over read by Dr. Lovell shows a contusion of the left lateral lobe of the liver. Dr. Lovell impression: 1. No evidence of significant splenic findings (as per request). However, there are abnormal findings in the developmentally long left hepatic lobe which reaches the level of the spleen. It appears edematous and contains an enhancing 1.5 x 1.4 cm open nodule which is most probably posttraumatic intraparenchymal hemorrhage/contusion. There is no surrounding ascites. 2. The adjacent spleen itself appears unremarkable. Lab Data Lab results narrative: No significant abnormalities of labs. Her urine did have protein and red cells but was a contaminated specimen. I will advise the patient to have a repeat urine as an outpatient to recheck. HPI General Mode of arrival: ambulatory. Date/Time Provider Initiated Documentation: 03/22/23 13:59. Limitations to Documentation: no limitations. Information obtained by: patient. HPI Narrative: Time seen was 1433 in bed 5. The patient is a -3-1-3 who is on control and has menstrual cycles every 3 months, whose last menstrual period was a month ago and was normal. She presents with several complaints. Her first complaint is difficulty breathing. She feels as though she cannot take a full breath. This began 2 days ago while at work. She denies any chest pain. She does have a history of asthma but does not regularly use an inhalers and does not smoke. She has never been hospitalized or intubated for asthma and the last time she took steroids was 3 meyer ago. She is not sure what triggers her asthma but believes it may be change in weather. She denies tobacco use but does use a vaporizer. She does not have a wood stove at home. She does have a dehumidifier which she has not been using. She has had a slight cough which has been nonproductive. She denies any sputum production. She has had a low-grade fever with a Tmax of 100. She has had some chills. She states that she has a history of anxiety and the shortness of breath is making her anxiety worse. 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 The patient herself had COVID in the past but has not been immunized. Her second complaint is of abdominal pain. She tells me that 2 days ago while holding her 1-1/2-year-old she tripped and fell and hit her upper stomach on a vacuum condenser cleaner. The next day she notices a small bruise in the epigastrium and has had crampy abdominal pain since that associated with mild anorexia and some vomiting. The pain in her stomach is constant and radiates to the left mid thoracic region of her back. It varies from 2-5 out of 10. She describes it as crampy. Her only past abdominal surgeries are repair of the umbilical hernia that developed between her second and third pregnancies. She denies any vaginal discharge or dysuria. She is also complaining of bloating. She has not had any foreign travel or sick contacts with GI symptoms. She denied any diarrhea but does endorse nausea and vomiting. Related Data Home Medications Medication Instructions Recorded Confirmed clonazepam 0.5 mg tablet 0.5 mg PO DAILY 10/21/21 03/22/23 levonorgestrel 0.15 mg-ethinyl See Rx Instructions .Route 02/16/23 03/22/23 estradiol 30 mcg tablets,3 mos .COMPLEX #91 tabs pack(91) (Setlakin) albuterol sulfate 90 mcg/actuation 3 inh inhalation Q4H PRN #1 ea 03/22/23 breath activated powder inhaler Previous Rx's Medication Instructions Recorded levonorgestrel 0.15 mg-ethinyl See Rx Instructions .Route 02/16/23 estradiol 30 mcg tablets,3 mos .COMPLEX #91 tabs pack(91) (Setlakin) albuterol sulfate 90 mcg/actuation 3 inh inhalation Q4H PRN #1 ea 03/22/23 breath activated powder inhaler Allergies Allergy/AdvReac Type Severity Reaction Status Date / Time No Known Allergies Allergy Verified 03/22/23 14:04 General Stated Complaint: Abd Prob SUDHA: 4 Review of Systems Narrative: see hpi PFSH All Active Problems Hematuria (Acute) Closed contusion of liver (Acute) Shortness of breath (Acute) Liver contusion (Acute) Ganglion cyst of right foot (Acute) Exostosis (Acute) Fibroma (Acute) Pain in right foot (Acute) Medical History Dysuria Vaginal irritation Low TSH level LGSIL (low grade squamous intraepithelial dysplasia) 04/15/2021 screening Pap LGSIL. 05/01/2021. Normal appearing colposcopy. No biopsies taken. Recommend repeat pap PP Marijuana smoker History of intravenous drug use in remission History of opioid abuse Urinary frequency Hepatitis C Optic neuritis UTI (urinary tract infection) Surgical History H/O umbilical hernia repair S/P hernia repair Social History Smoking/Tobacco Use Status: Former Tobacco Use Smoking risk assessment performed?: Yes Alcohol Intake: current Alcohol Intake frequency: holidays/special occasions only Drug use: Daily Substance use type: does not use, former substance user and marijuana Details: clean/sober for 7 years Reports about 5 cigarettes a week since giving . Housing: other Do you feel safe at home: Yes Do you feel safe in your relationship?: Yes Female Reproductive History Menstrual control method: pills History History 4 Para 3 Hx # Term Pregnancies 3 Multiple births 0 Hx # Pregnancies 0 Ectopic pregnancies 0 AB induced 1 Hx Number of Living Children 3 AB spontaneous 0 Past Pregnancies Del. Date GA/Weeks # Preg Succ Route Wgt Sex Labor Lgth Anesthesia Location Prov Complic Unknown 38 No Yes vaginal Female 11hrs 19oz [facility] KAMILA Quiñonez 04/26/11 40 No vaginal 3345.244 g Male 36 hrs [facility] - [facility] 09/13/14 41 No vaginal 3600.389 g Female 12 hrs [facility] - [facility] Delivery Date: Last Updated by: Hermelinda Wilkinson, JUAREZ Peguero; Delivery Date: 04/26/11 Last Updated by: Susan Richardson IOL for PROM at term, 36 hrs labor w/epidural, GBS negative. Nml , baby w/GBS meningitis at 3 weeks of age, is ok now. Ronald Delivery Date: 09/13/14 Last Updated by: Susan Richardson IOL for postdates; epidural. GBS neg. Nml Carabella Exam Const General: cooperative, healthy appearing, comfortable, no acute distress, well developed, well groomed and well hydrated Nutritional Appearance: average body habitus and well nourished Orientation: alert, awake and oriented x3 HENMT Head: normal to inspection, normocephalic and atraumatic Ears: hearing grossly normal bilaterally and external ears normal General nose exam: external nose normal, nares normal and no nasal discharge Face and sinus: normal facial exam, sinuses nontender and face symmetric Mouth: oral mucosae normal, lip normal, tongue normal, oropharynx normal, moist mucous membranes and other (Normal phonation. The patient is handling secretions.) Throat: posterior oropharynx normal and uvula midline Eyes General: appearance normal, both eyes and all related structures Eyelids: eyelids normal Conjunctivae: conjunctivae normal Sclera: sclerae normal Cornea: corneas normal Pupils: PERRL EOM: EOM intact bilaterally and No nystagmus Neck Neck: normal visual inspection, full ROM, no lymphadenopathy, no meningeal signs, trachea midline and supple Lymphatic: no lymphadenopathy noted Chest Chest: normal inspection of the chest Resp Effort & Inspection: normal respiratory effort, able to speak in complete sentences, no audible wheezes, no nasal flaring, no respiratory distress, no retractions, no stridor, not tachypneic, no tracheal deviation, no use of accessory muscles, No prolonged expiratory phase and other (Normal inspiratory to expiratory ratio.) Auscultation: clear to auscultation bilaterally, no rales, no rhonchi, no wheezes and no rubs Tactile Fremitus: tactile fremitus absent Cardio Jugular venous pressure: no JVD Palpation: normal PMI Rate: regular rate Rhythm: regular rhythm Heart Sounds: S1 normal, S2 normal, no gallops, no murmurs and no rubs GI Inspection: abdominal wall ecchymosis (Quarter sized bruise in the epigastric region just left of midline.), non-distended and scar (Surgical scar consistent with repair of umbilical hernia) Palpation: soft, no hepatosplenomegaly, no guarding and tender in the LUQ; not at McBurney's point Percussion: normal to percussion Auscultation: normal bowel sounds General: No CVA tenderness Back/Spine/Pelvis Back: no CVA tenderness and No back tenderness Cervical Spine: normal cervical lordosis, cervical ROM normal, No cervical muscular tenderness, No pain with cervical ROM, No cervical spinal tenderness and No step off deformity Thoracic/Lumbar Spine: thoracic and lumbar spine normal to inspection, No thoracic spinal tenderness and No lumbar spinal tenderness Pelvis: no pain with anterior-posterior compression and no pain with lateral compression Skin General skin exam: turgor normal, no petechiae, no purpura and other (Skin is normal for ethnicity. See above) Lesions: no lesions Rashes: no rashes Trauma: no lacerations or abrasions Other: Small is in the epigastrium as described above. Neuro General: patient alert, patient awake, patient oriented x3, moves all extremities, no meningeal signs, no focal motor deficits and CN's II-XI intact bilaterally Cranial Nerves: CN's II-XI intact bilaterally, PERRL, accommodation normal, EOM intact bilaterally, no nystagmus, facial strength normal, tongue midline, hearing normal and no nystagmus Cognition: normal cognition Speech: speech normal Gait: normal gait Motor: muscle tone normal throughout and strength 5/5 throughout Sensory Exam: no sensory deficits noted Extrem General: normal to inspection, full ROM, capillary refill normal, no clubbing, cyanosis or edema and no calf tenderness Psych Appearance: grossly normal Affect: normal affect Attitude: cooperative Thought Process: normal Thought Content: normal Insight: insight good Judgment: judgment good Other: The patient appears to have capacity make medical decisions. Course 1720 5 PM.: The patient requested a albuterol MDI plus spacer since she has been using her boyfriend's and it has improved shortness of shortness of breath. She was also requesting a work note. I have reviewed the findings of Dr. Lovell's reading with the patient. I have advised her on the recommendation not to engage in contact sports such as skiing or snowboarding for 6 weeks and advised her to return here if she develops any new or worrisome symptoms such as syncope, increasing pain or any concerns. I have advised her to follow-up with her primary care provider. The patient voiced understanding agree with the discharge plan. All her questions and concerns were addressed prior to discharge Consultations Consultation #1: Dr. Colindres, general surgery. I have reviewed the films with him. His recommendation is avoid contact sports for 6 weeks and return if she develops any new or worrisome symptoms such as syncope or worsening abdominal pain. Critical Care Time Critical Care Time Total Critical Care Time: 41 Attestation: This includes time at bedside, review of labs and radiographs and consultation with general surgery and radiologist
--- NOTE | 2023-03-22 14:30 | DI.CT_ITS ---
Exam(s) CT ABDOMEN PELVIS W EXAM: CT ABDOMEN PELVIS W CLINICAL HISTORY: rule out splenic injury. TECHNIQUE: Imaging Protocol: Axial computed tomography images with coronal and sagittal reformatted images were created and reviewed CONTRAST MATERIAL: Intravenous: Omnipaque-350 100cc Oral: None COMPARISON: CT CT ABDOMEN PELVIS W from 06/15/2020 FINDINGS: VISUALIZED LUNG BASES: Unremarkable. No pleural effusions. Visualized lower ribs appear intact ABDOMEN: There is no ascites. LIVER: Right hepatic lobe but appears unremarkable. Left hepatic lobe extends across the midline to t he level of the spleen. Its distal aspect appears abnormal probable related to contusion and there is an enhancing 1.5 by 1.5 cm abnormality in the liver at this level. Suspect that there has been signi ficant contusion of the liver at this level. The adjacent spleen in this region appears unremarkable with no evidence of splenic laceration nor subcapsular hematoma. There is no ascites in this region GALLBLADDER/BILIARY: No obvious gallbladder pathology. CBD is not dilated. PANCREAS: No evidence of pancreatic mass nor dilatation of the pancreatic duct. SPLEEN: Spleen is not enlarged. No obvious intrasplenic lesions. Splenic and portal veins are paten t. ADRENALS: There are no significant adrenal masses. KIDNEYS:No evidence of renal laceration or subcapsular hematomas. No renal cysts nor solid masses. No calculi. No hydronephrosis.. ABDOMINAL AORTA: Intact. Retroaortic left renal vein incidentally noted. LYMPH NODES:There is no retroperitoneal nor paraaortic adenopathy. ABDOMINAL WALL: No evidence of significant anterior abdominal wall nor inguinal hernia. GI: There is no evidence of bowel obstruction, free air, nor abscess. No evidence of mesenteric nor bowel wall hematoma. PELVIS: GI: No evidence of appendicitis.No evidence of sigmoid diverticulitis. LYMPH NODES: There is no intrapelvic nor inguinal adenopathy. REPRODUCTIVE: Age-appropriate URINARY BLADDER: Unremarkable. OSSEOUS: No fractures and no significant osseous lesions. IMPRESSION: 1. No evidence of significant splenic findings (as per request). However, are abnormal findings in th e developmentally long left hepatic lobe which reaches to the level the spleen. It appears edematous and contains an enhancing 1.5 x 1.4 cm ???nodule??? which is most probably posttraumatic intraparench ymal hemorrhage/contusion. There is no surrounding ascites. 2. The adjacent spleen itself appears unremarkable. Report of this finding called by myself to the ER physician 03/22/2023 5:05 p.m. RADIATION DOSE DELIVERED: Total DLP DATA REPOSITORY: All CT scans at this facility are submitted to the National Radiology Data Registry (NRDR) Dose Index Registry (DIR) with the [employer] (A[employer]). RADIATION OPTIMIZATION: All CT scans at this facility use at least one of these dose optimization te chniques: automated exposure control; mA and/or kV adjustment per patient size (includes targeted exa ms where dose is matched to clinical indication); or iterative reconstruction.
[2023-03-22] MEDS: Normal Saline 1,000 ML 1000 ML IV (14:45)
[2023-03-22] MEDS: ACETAMINOPHEN 1,000 MG/100 ML BTL 400 MG IVPB (14:45)
[2023-03-22] MEDS: Ondansetron O.D.T. 4 MG TABEF PO (14:45)
--- NOTE | 2023-03-22 14:45 | DI.RAD_ITS ---
Exam(s) XR CHEST 2V PA LATERAL EXAM: XR CHEST 2V PA LATERAL CLINICAL HISTORY: cannot take a full breath. TECHNIQUE: 2D digital imaging was performed. COMPARISON: CR,XR XR PORTABLE CHEST AP from 08/20/2020 FINDINGS: 2 views: Heart size is normal. The mediastinum is not widened. Lungs are clear. No infiltrates nor pleural effusions. Nodular density lower right lung field is most probably the right breast nipple IMPRESSION: No acute pulmonary findings. DATA REPOSITORY: RADIATION DOSE DELIVERED:
[2023-03-22 14:53] LABS: Abs Immature Grans 0.02 10^3/uL (0.0-0.06); Absolute Basophil Count 0.03 10^3/uL (0.0-0.2); Absolute Eosinophil Count 0.03 10^3/uL (0.0-0.7); Absolute Lymphocyte Count 2.63 10^3/uL (1.2-3.4); Absolute Monocyte Count 0.47 10^3/uL (0.1-0.8); Absolute Neutrophil Count 2.76 10^3/uL (1.2-6.7); Basophils % 0.5; Eosinophils % 0.5; HCT 35.1 % (36.0-46.0); HGB 11.6 g/dL (11.2-15.7); Immature Grans % 0.3; Lymphocytes % 44.3; MCH 28.6 pg (27.0-33.0); MCV 87 fL (80-95); MPV 9.5 fL (8.0-11.0); Monocytes % 7.9; Neutrophils % 46.5; Platelet Count 293 10^3/uL (130-400); RBC 4.05 10^6/uL (3.93-5.22); RDW 13.2 % (11.7-14.6); RDW-SD 41.6 fL; WBC 5.94 10^3/uL (4.4-10.8)
[2023-03-22 14:54] LABS: Bilirubin Negative (Negative); Blood Moderate (Negative); Clarity Sl Cloudy (Clear); Glucose Negative (Negative); Ketones Negative (Negative); Leukocyte Esterase Negative (Negative); Nitrite Negative (Negative); Specific Gravity >= 1.030 (1.005-1.025); Urobilinogen 0.2 mg/dL (Up to 0.2); pH 5.5 (5-8)
[2023-03-22 15:04] LABS: Bacteria Few HPF (Negative); C & S Indicated? No/Sq. Contamination; Casts Negative LPF (Negative); Crystals Negative HPF (Negative); Epithelial Cells Many HPF (Negative); Mucus Moderate (Negative)
[2023-03-22 15:08] LABS: ALT 14 U/L (14-59); AST 14 U/L (15-37); Albumin 4.4 g/dL (3.4-5.0); Alkaline Phosphatase 35 U/L (46-116); Anion Gap 10.6 mmol/L (3-11); BUN 10 mg/dL (7-18); Bilirubin, Total 0.6 mg/dL (0.2-1.0); CO2 22.4 mmol/L (21.0-32.0); CREATININE 0.8 mg/dL (0.55-1.02); Calcium 9.7 mg/dL (8.5-10.1); Chloride 103 mmol/L (98-107); Estimated GFR 100.96 (mL/min/1.73m2); Glucose 89 mg/dL (74-106); Lipase 24 U/L (16-77); Magnesium 1.8 mg/dL (1.8-2.4); Potassium 3.6 mmol/L (3.5-5.1); Sodium 136 mmol/L (136-145); Total Protein 8.3 g/dL (6.4-8.2)
[2023-03-22 15:35] LABS: COVID-19 PCR Negative (Negative); Influenza A PCR Negative (Negative); Influenza B PCR Negative (Negative); RSV PCR Negative (Negative)
[2023-03-22 15:45] LABS: Source Nasopharynx
[2023-03-22] MEDS: Omnipaque 350 MG/ML 100 ML BTL IJ (16:16)
[2023-03-22] MEDS: Normal Saline - Diluent 50 ML VIAL IJ (16:18)
--- NOTE | 2023-03-22 16:43 | DI.VRAD_ITS ---
PROCEDURE INFORMATION: Exam: XR Chest Exam date and time: 03/22/2023 4:23 PM Age: 32 years old Clinical indication: Pain; On breathing TECHNIQUE: Imaging protocol: Radiologic exam of the chest. Views: 2 views. COMPARISON: CR XR PORTABLE CHEST AP 08/20/2020 4:45 PM FINDINGS: Lungs: No consolidation. No Mass Pleural spaces: No pleural effusion. No pneumothorax. Heart/Mediastinum: Unremarkable Bones/joints: Developmental deformity in the left upper ribs, stable. IMPRESSION: No acute cardiopulmonary disease Dictated and Authenticated by: Lion Glaser MD. Ordering:MISSY Bello MD
--- NOTE | 2023-03-22 16:47 | DI.VRAD_ITS ---
PROCEDURE INFORMATION: Exam: CT Abdomen And Pelvis With Contrast Exam date and time: 03/22/2023 4:17 PM Age: 32 years old Clinical indication: Pain; Other: Rule out splenic injury TECHNIQUE: Imaging protocol: Computed tomography of the abdomen and pelvis with contrast. Contrast material: OMNIPAQUE 350; Contrast volume: 100 ml; Contrast route: INTRAVENOUS (IV); COMPARISON: CT ABDOMEN PELVIS W 06/15/2020 12:43 AM FINDINGS: Lungs: The visualized lung bases are clear Liver: Unremarkable. No mass. Gallbladder and bile ducts: Normal. No calcified stones. No ductal dilation. Pancreas: Normal. No ductal dilation. Spleen: Normal enhancement of the spleen. No splenic laceration. No free fluid around the spleen. Adrenal glands: Normal. No mass. Kidneys and ureters: Normal. No hydronephrosis. Stomach and bowel: Unremarkable. No obstruction. No mucosal thickening. Appendix: No evidence of appendicitis. Intraperitoneal space: No free fluid or free air in the abdomen and pelvis. Vasculature: Unremarkable. No abdominal aortic aneurysm. Lymph nodes: Unremarkable. No enlarged lymph nodes. Urinary bladder: Unremarkable as visualized. Reproductive: Unremarkable as visualized. Bones/joints: No fracture or other acute findings. Soft tissues: Unremarkable. IMPRESSION: No evidence of splenic injury or other acute findings Dictated and Authenticated by: Lion Glaser MD. Ordering:MISSY Bello MD
--- NOTE | 2023-03-22 17:26 | SCONE_ITS ---
Date of service: 03/22/23 Time of Service: 17:26 Assessment and Plan Assessment and plan (1) Liver contusion: Status: Acute Assessment and plan: 32-year-old woman with a liver contusion that is at least 2 days old now. Hemodynamically stable. Stable hemoglobin. I have reviewed her CT scan. There is no free fluid or evidence of extravasation. I think she can be discharged home safely considering the timeframe and how stable everything is. She can expect for some abdominal discomfort to last for probably at least a few weeks if not longer. I recommended: Come back to the hospital if anything gets worse Avoid any high risk activities(for repeated blunt abdominal trauma) or any contact sports for the next 6 weeks History of Present Illness Narrative: Asked to consult by ED provider on liver contusion. The patient is a 32-year-old woman who was carrying her child and fell against a vacuum finish cleaner handle [address] scan the liver showed liver contusion but there is no subcapsular hematoma, there is no active extravasation or any intraperitoneal fluid. Patient is reportedly hemodynamically stable and hemoglobin is also within normal range. PFSH All Active Problems (Updated 03/22/23 @ 17:28 by Rodolfo Colindres MD) Liver contusion (Acute) Ganglion cyst of right foot (Acute) Exostosis (Acute) Fibroma (Acute) Pain in right foot (Acute) Medical History Dysuria Vaginal irritation Low TSH level LGSIL (low grade squamous intraepithelial dysplasia) 04/15/2021 screening Pap LGSIL. 05/01/2021. Normal appearing colposcopy. No biopsies taken. Recommend repeat pap PP Marijuana smoker History of intravenous drug use in remission History of opioid abuse Urinary frequency Hepatitis C Optic neuritis UTI (urinary tract infection) Surgical History H/O umbilical hernia repair S/P hernia repair Social History Smoking/Tobacco Use Status: Former Tobacco Use Smoking risk assessment performed?: Yes Alcohol Intake: current Alcohol Intake frequency: holidays/special occasions only Drug use: Daily Substance use type: does not use, former substance user and marijuana Details: clean/sober for 7 years Reports about 5 cigarettes a week since giving . Housing: other Do you feel safe at home: Yes Do you feel safe in your relationship?: Yes Female Reproductive History Menstrual control method: pills History History 2 4 Para 3 Hx # Term Pregnancies 3 Multiple births 0 Hx # Pregnancies 0 Ectopic pregnancies 0 AB induced 1 Hx Number of Living Children 3 AB spontaneous 0 Past Pregnancies Del. Date GA/Weeks # Preg Succ Route Wgt Sex Labor Lgth Anesth esia Location Prov Complic Unknown 38 No Yes vaginal Female 11hrs 19oz [facility] CHRIS Perez 04/26/11 40 No vaginal 7 lb 6 oz Male 36 hrs [facility] - [facility] 09/13/14 41 No vaginal 7 lb 15 oz Female 12 hrs [facility] - MD service Delivery Date: Last Updated by: JUAREZ Hart; Delivery Date: 04/26/11 Last Updated by: Susan Richardson IOL for PROM at term, 36 hrs labor w/epidural, GBS negative. Nml , baby w/GBS meningitis at 3 weeks of age, is ok now. Ronald Delivery Date: 09/13/14 Last Updated by: Susan Richardson IOL for postdates; epidural. GBS neg. Nml Carabella Results Last Vital Signs Temp 98.2 F 03/22/23 13:57 Pulse 78 03/22/23 13:57 Resp 15 03/22/23 13:57 BP 153/89 H 03/22/23 13:57 Pulse Ox 99 03/22/23 13:57 Labs 03/22/23 14:00 03/22/23 14:00 Labs: Laboratory Results - last 24 hr 03/22/23 03/22/23 03/22/23 14:00 14:23 14:50 WBC 5.94 RBC 4.05 Hgb 11.6 Hct 35.1 L MCV 87 MCH 28.6 MCHC 33.0 RDW 13.2 Plt Count 293 MPV 9.5 Immature Gran % 0.3 Neutrophils % 46.5 Lymphocytes % 44.3 Monocytes % 7.9 Eosinophils % 0.5 Basophils % 0.5 Nucleated RBC % 0.0 Absolute Neutrophils 2.76 Absolute Lymphocytes 2.63 Absolute Monocytes 0.47 Absolute Eosinophils 0.03 Absolute Basophils 0.03 Sodium 136 Potassium 3.6 Chloride 103 Carbon Dioxide 22.4 Anion Gap 10.6 BUN 10 Creatinine 0.8 Est GFR (CKD-EPI 2020) 100.96 Glucose 89 Calcium 9.7 Magnesium 1.8 Total Bilirubin 0.6 AST 14 L ALT 14 Alkaline Phosphatase 35 L Total Protein 8.3 H Albumin 4.4 Lipase 24 Urine Color Yellow Urine Clarity Sl Cloudy Urine pH 5.5 Ur Specific [place] >= 1.030 H Urine Protein 30 H Urine Ketones Negative Urine Blood Moderate H Urine Nitrite Negative Urine Bilirubin Negative Urine Urobilinogen 0.2 Ur Leukocyte Esterase Negative Urine RBC 3-5 H Urine WBC 3-5 Ur Epithelial Cells Many Urine Crystals Negative Urine Bacteria Few Urine Casts Negative Urine Mucus Moderate Ur Culture Indicated? No/Sq. Contamination Urine Glucose Negative COVID-19 Source Nasopharynx SARS-CoV-2 (PCR) Negative Influenza Type A (PCR) Negative Influenza Type B (PCR) Negative RSV (PCR) Negative
--- NOTE | 2023-03-22 17:34 | NUR.NOTE ---
Referral faxed to [facility] for blood in urine, in 2 weeks. Nursing Note:
[2023-03-22 17:43] VITALS: BP 125/78; PULSE 66; TEMP 36.6; O2SAT 97
== END 2023-03-22 17:48 | disposition home or self-care (01) ==
PROVIDERS: Emergency Provider Emergency Medicine Emergency Medical Services; PCP Family Medicine
DX: S36.112A Contusion of liver, initial encounter (principal); R06.02 Shortness of breath; R31.9 Hematuria, unspecified; Z87.891 Personal history of nicotine dependence; W22.8XXA Striking against or struck by other objects, initial encounter; Y93.01 Activity, walking, marching and hiking; Y92.018 Other place in single-family (private) house as the place of occurrence of the external cause
CPT/HCPCS: 00123; 36415; 80053; 81025; 83690; 87637; 96361; 96374; 99285; 71046; 74177; 81003; 81015; 83735; 85025; 99284; J0131; J3490

== ENCOUNTER 2023-03-25 15:25 | Outpatient (REF) | payer MEDICAID, SELFPAY ==
[2023-03-25 21:17] LABS: Abs Immature Grans 0.01 10^3/uL (0.0-0.06); Absolute Basophil Count 0.03 10^3/uL (0.0-0.2); Absolute Eosinophil Count 0.04 10^3/uL (0.0-0.7); Absolute Monocyte Count 0.49 10^3/uL (0.1-0.8); Absolute Neutrophil Count 4.11 10^3/uL (1.2-6.7); Basophils % 0.4; Eosinophils % 0.6; HCT 32.2 % (36.0-46.0); HGB 10.9 g/dL (11.2-15.7); Immature Grans % 0.1; Lymphocytes % 34.8; MCH 29.3 pg (27.0-33.0); MCHC 33.9 % (32.0-36.0); MCV 87 fL (80-95); MPV 9.9 fL (8.0-11.0); Monocytes % 6.8; Neutrophils % 57.3; Platelet Count 272 10^3/uL (130-400); RBC 3.72 10^6/uL (3.93-5.22); RDW 13.5 % (11.7-14.6); RDW-SD 42.3 fL; WBC 7.18 10^3/uL (4.4-10.8)
[2023-03-25 21:24] LABS: WBC Negative HPF (0-5)
[2023-03-25 21:25] LABS: Bacteria Moderate HPF (Negative); Crystals Moderate Amorphous HPF (Negative); Epithelial Cells Negative HPF (Negative); RBC Negative HPF (0-2)
[2023-03-25 21:26] LABS: C & S Indicated? No; Casts Negative LPF (Negative); Mucus Trace (Negative)
== END 2023-03-25 15:26 | disposition home or self-care (01) ==
LOC: NCHCN 15:25
PROVIDERS: PCP Family Medicine; Visit Provider Family Medicine
DX: R31.29 Other microscopic hematuria (principal); S36.112D Contusion of liver, subsequent encounter
CPT/HCPCS: 81015; 85025

== ENCOUNTER 2023-04-07 03:46 | Outpatient (CLI) | payer MEDICAID, SELFPAY ==
[2023-04-07] MEDS: Levalbuterol HFA 15 GM INH 4 PUFF IH (16:17)
[2023-04-07] MEDS: Inhaler, Assist Device 1 EACH MC (16:17)
--- NOTE | 2023-04-09 13:41 | W.PFT ---
Date of service: 04/07/23 Time of Service: 14:55 Pulmonary Function Test Result Indications: Asthma Interpretation Spirometry: There is no airflow limitation. No significant bronchodilator response. Lung Volumes: Normal lung volumes Diffusion Capacity: Normal diffusion Airway Pressure: Normal airways resistance Impression Normal pulmonary function testing Clinical Correlation therefore is recommended.
== END 2023-04-07 03:47 | disposition home or self-care (01) ==
LOC: RT 03:46
PROVIDERS: PCP Family Medicine; Visit Provider Family Medicine
DX: J45.909 Unspecified asthma, uncomplicated (principal)
CPT/HCPCS: 94060; 94726; 94729

== ENCOUNTER 2023-04-08 07:52 | Emergency (ER) | payer MEDICAID, SELFPAY ==
--- NOTE | 2023-04-08 07:45 | RT.EKG_ITS ---
APPROVED REPORT Exam: Resting ECG Reason for Exam: palpitations Patient Location: E HR:66 bpm ECG Measurements Heart Rate 66 AXIS SD 156 P 63 QRSd 108 QRS 53 QT 396 T 19 QTc 416 Conclusion sinus normal axis LVH pattern
--- NOTE | 2023-04-08 08:00 | DI.RAD_ITS ---
Exam(s) XR CHEST 2V PA LATERAL EXAM: XR CHEST 2V PA LATERAL CLINICAL HISTORY: palpitations TECHNIQUE: 2D digital imaging was performed of the chest. Two images were obtained. PA and lateral views were obtained. COMPARISON: CR,XR XR CHEST 2V PA LATERAL from 03/22/2023 FINDINGS: MEDIASTINUM: Normal. HEART: Normal. PULMONARY VASCULATURE: Normal. LUNGS: Clear. PLEURAL SPACE: No pleural effusion or pneumothorax. BONE:Within normal limits for the patient's age. 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 OTHER FINDINGS:Normal. IMPRESSION: No acute pulmonary findings. DATA REPOSITORY: RADIATION DOSE DELIVERED:
--- NOTE | 2023-04-08 08:00 | DI.US_ITS ---
Exam(s) US ABDOMEN LIMITED EXAM: US ABDOMEN LIMITED CLINICAL HISTORY: RUQ/epigastric tenderness TECHNIQUE: Ultrasound abdomen performed using standard protocol. COMPARISON: CT CT ABDOMEN PELVIS W from 03/22/2023 FINDINGS: PANCREAS: Normal where visualized. LIVER: Normal. Hepatopedal flow in the Portal Vein. The liver measures in 18.5 cm length. GALLBLADDER: No evidence of cholelithiasis. No evidence of wall thickening. No pericholecystic fluid identified. BILIARY SYSTEM: Common bile duct measures < 7 mm. No intrahepatic biliary ductal dilation. TRACY'S SIGN: Negative. RIGHT KIDNEY: Kidney is normal in size. No evidence of renal calculi. No evidence of hydronephrosis. No renal mass or cyst identified. ASCITES: None seen. IMPRESSION: Mild hepatomegaly. DATA REPOSITORY:
[2023-04-08 08:04] VITALS: BP 109/62; PULSE 65; RESP 15; TEMP 37.1; O2SAT 99
--- NOTE | 2023-04-08 08:11 | ED.GENADUL_ITS ---
Discharge Plan Disposition Patient Disposition: Home Condition: Stable Discharge Details Clinical Impression: Bacterial vaginosis, Anxiety reaction Primary Care Provider: Francisco Mayorga ED Provider: Cedrick Maher Home Meds and New Rx's Prescriptions: New metronidazole 500 mg tablet 500 mg PO BID 7 Days Qty: 14 0RF metronidazole 0.75 % gel 1 applic topical DAILY 5 Days Qty: 45 0RF Continued clonazepam 0.5 mg tablet 0.5 mg PO DAILY Patient Comments: TAKE 1 TABLET BY MOUTH TWICE DAILY levonorgestrel-ethinyl estrad [Setlakin] 0.15 mg-30 mcg (91) tablets,dose pack,3 month See Rx Instructions .ROUTE .COMPLEX Qty: 91 3RF Dose Instruction: TAKE ONE TABLET BY MOUTH EVERY DAY Rx Instructions: TAKE ONE TABLET BY MOUTH EVERY DAY albuterol sulfate 90 mcg/actuation aerosol powdr breath activated 3 inh inhalation Q4H PRNQty: 1 0RF Rx Instructions: Up to 3 puffs with spacer 5 minutes apart every 4 hours as needed for cough wheezing or shortness of breath. Discharge Instructions Instructions: Metronidazole (By mouth), Bacterial Vaginosis (ED), Anxiety (ED) Additional Instructions: You were seen in the emergency department for your palpitations and multisystem complaints. I believe your palpitations are related to anxiety, your EKG is benign, your troponin which is a marker of ischemic demand on the heart is negative meaning this is not damaging the heart, your D-dimer is negative meaning you do not have a blood clot in your lungs. You are not anemic, you do not have a UTI, your metabolic panel shows no liver or pancreas abnormalities, your ultrasound is negative for any pathology, your chest x-ray shows no pneumonia. As you suspected, your vaginal microbial swab is positive for bacterial vaginosis and I have sent metronidazole to your pharmacy, do not drink alcohol while taking this medicine. It is a very low risk that you could have endocarditis, you do not have a murmur when I listen to your heart sounds and you have a remote history of IV drug use, it is reasonable to follow-up with your primary care provider as an outpatient if this is an ongoing concern for you to have an echocardiogram performed on an outpatient basis. Referrals: Francisco Mayorga MD [Primary Care Provider] - Discharge Data Discharge Date/Time-TO BE ENTERED AT DEPARTURE: 04/08/23 10:48 Medical Decision Making This dictation utilizes [id number] dictation software and may contain unedited grammatical errors. 32 y/o F, history of IVDU/liver lesion presents to ED today with a chief complaint of palpitations ongoing with acute worsening the past 3 days, feels flushed/sweats, feelings of pre-syncope similar to prior aura of chronic seizure disorder. Onset and characteristics include starts at rest, goes away with deep breathing, denies chest pain, no recent fevers/body aches, no nausea/vomiting, has mild epigastric pain intermittently with history of liver lesion, patient denies anxiety/stress but does equate the episodes to feeling like panic attacks. Patients' medical history: IVDU, Hep C, liver lesion- IVDU in remission. Patient also notes anemia of iron deficiency, patient questions past problems with her thyroid as well, and possible BV or yeast infection. Family and social history: IVDU in remission. Pertinent exam findings / vital signs include no heart murmur, regular rate and rhythm, neurologically intact, nontoxic vitals, mild epigastric tenderness without peritoneal signs. Patient is highly anxious over her health with these multi-system complaints. Differential / pathologies of concern include ACS, endocarditis, anxiety, PE, biliary colic, anemia, pancreatitis. Diagnostic studies of: -CBC, CMP, Lipase, D-dimer, Trop I, BNP, TSH, Mg++, UA, Vaginal Microbial Screen, CXR, U/S RUQ Ltd, EKG. -EKG shows chronic submillimeter ST depression lead III and aVF, normal axis, good R wave progression, no reciprocal ST elevations, there is a new RSR in V1 V2, normal QT QTc -CBC no leukocytosis, no anemia -CMP benign -Lipase negative, no pancreatitis -D-dimer negative, no PE -Trop I negative, no ACS -TSH WNL -UA shows blood & protein, nonspecific -Vaginal microbial swab shows + gardnerella. -U/S RUQ negative for any acute pathology, no hydronephrosis, chronic liver findings -CXR shows no acute pulmonary abnormality or other findings. Interventions of: -re-assurance, outpt Rx for BV. ED Course: Patient comes in with a constellation of symptoms including concerning palpitations and feeling flushed, she is anxious over many systems of her body and has a history of IV drug use with hep C that is in remission. I discussed her benign workup, addressed her concerns reassured her that she is not anemic, there are no abnormalities in her lipase or on ultrasound of her biliary tree, her D-dimer is negative not indicating PE, troponin is negative with greater than 6-hour onset indicating no cardiac ischemic etiology, her chest x-ray shows no acute abnormalities, no cardiomegaly, UA shows blood and protein which is nonspecific and vaginal microbial swab shows BV which the patient was suspicious of. I counseled her that she likely has anxiety as the cause of her palpitations but she may pursue an outpatient echocardiogram due to her past IV drug use, she did not have any chest pain during this episode nor did she have any murmur to auscultation, low risk and reasonable for follow-up as an outpatient. Findings not consistent with PE, ACS, PNA, Choledocholithiasis, Pancreatitis, Anemia, Endocarditis- more consistent with anxiety. Disposition of Bacterial Vaginosis, Anxiety Reaction. Patient verbalized understanding of the plan and return to ED criteria and engaged in shared decision making. Medical Records Medical records reviewed: Yes I reviewed the patient's medical records. Imaging Data Radiologic Study: Imaging: X-Ray Radiologist's impression: EXAM: XR CHEST 2V PA LATERAL CLINICAL HISTORY: palpitations TECHNIQUE: 2D digital imaging was performed of the chest. Two images were obtained. PA and lateral views were obtained. COMPARISON: CR,XR XR CHEST 2V PA LATERAL from 03/22/2023 FINDINGS: MEDIASTINUM: Normal. HEART: Normal. PULMONARY VASCULATURE: Normal. LUNGS: Clear. PLEURAL SPACE: No pleural effusion or pneumothorax. BONE:Within normal limits for the patient's age. 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 OTHER FINDINGS:Normal. IMPRESSION: No acute pulmonary findings. Radiologic Study #2: Imaging: Ultrasound Radiologist's impression: Exam(s) US ABDOMEN LIMITED EXAM: US ABDOMEN LIMITED CLINICAL HISTORY: RUQ/epigastric tenderness TECHNIQUE: Ultrasound abdomen performed using standard protocol. COMPARISON: CT CT ABDOMEN PELVIS W from 03/22/2023 FINDINGS: PANCREAS: Normal where visualized. LIVER: Normal. Hepatopedal flow in the Portal Vein. The liver measures in 18.5 cm length. GALLBLADDER: No evidence of cholelithiasis. No evidence of wall thickening. No pericholecystic fluid identified. BILIARY SYSTEM: Common bile duct measures < 7 mm. No intrahepatic biliary ductal dilation. TRACY'S SIGN: Negative. RIGHT KIDNEY: Kidney is normal in size. No evidence of renal calculi. No evidence of hydronephrosis. No renal mass or cyst identified. ASCITES: None seen. IMPRESSION: Mild hepatomegaly. Lab Data Labs: 04/08/23 09:23 Vaginal Vaginitis Screen - Final Laboratory Tests Range/Units 04/08/23 04/08/23 08:25 09:05 WBC (4.4-10.8) 10^3/uL 5.24 RBC (3.93-5.22) 10^6/uL 4.01 Hgb (11.2-15.7) g/dL 11.6 Hct (36.0-46.0) % 34.7 L MCV (80-95) fL 87 MCH (27.0-33.0) pg 28.9 MCHC (32.0-36.0) % 33.4 RDW (11.7-14.6) % 13.2 Plt Count (130-400) 10^3/uL 284 MPV (8.0-11.0) fL 9.0 Immature Gran % 0.2 Neutrophils % 58.5 Lymphocytes % 31.7 Monocytes % 7.8 Eosinophils % 1.0 Basophils % 0.8 Nucleated RBC % (0.0-0.3) % 0.0 Absolute Neutrophils (1.2-6.7) 10^3/uL 3.07 Absolute Lymphocytes (1.2-3.4) 10^3/uL 1.66 Absolute Monocytes (0.1-0.8) 10^3/uL 0.41 Absolute Eosinophils (0.0-0.7) 10^3/uL 0.05 Absolute Basophils (0.0-0.2) 10^3/uL 0.04 D-Dimer (<500) ng/mlFEU 308 Sodium (136-145) mmol/L 140 Potassium (3.5-5.1) mmol/L 3.7 Chloride (98-107) mmol/L 103 Carbon Dioxide (21.0-32.0) mmol/L 24.3 Anion Gap (3-11) mmol/L 12.7 H BUN (7-18) mg/dL 11 Creatinine (0.55-1.02) mg/dL 0.8 Est GFR (CKD-EPI 2020) (mL/min/1.73m2) 100.96 Glucose (74-106) mg/dL 103 Calcium (8.5-10.1) mg/dL 9.4 Magnesium (1.8-2.4) mg/dL 1.9 Total Bilirubin (0.2-1.0) mg/dL 0.9 AST (15-37) U/L 15 ALT (14-59) U/L 14 Alkaline Phosphatase (46-116) U/L 41 L Troponin I (<or=60) ng/L < 50 NT-Pro-B Natriuret Pep (<300) pg/mL 27 Total Protein (6.4-8.2) g/dL 8.1 Albumin (3.4-5.0) g/dL 4.4 Lipase (16-77) U/L 23 TSH (0.36-3.74) uIU/mL 0.92 Urine Color (Yellow) Yellow Urine Clarity (Clear) Clear Urine pH (5-8) 5.5 Ur Specific [place] (1.005-1.025) >= 1.030 H Urine Protein (Negative) mg/dL Trace H Urine Ketones (Negative) mg/dL Trace H Urine Blood (Negative) Moderate H Urine Nitrite (Negative) Negative Urine Bilirubin (Negative) Negative Urine Urobilinogen (Up to 0.2) mg/dL 0.2 Ur Leukocyte Esterase (Negative) Negative Urine RBC (0-2) HPF 5-10 H Urine WBC (0-5) HPF 3-5 Ur Epithelial Cells (Negative) HPF Few Urine Crystals (Negative) HPF Negative Urine Bacteria (Negative) HPF Rare Urine Casts (Negative) LPF Negative Urine Mucus (Negative) Trace Ur Culture Indicated? No Urine Glucose (Negative) mg/dL Negative HPI General Date/Time Provider Initiated Documentation: 04/08/23 07:57 . HPI Narrative: 32 year-old anxious female presents to ED today by POV/ambulating with a chief complaint of palpitations, feeling flushed, feelings of pre-syncope with onset worse for the past few days but ongoing for a long time. Quality described as not painful, just feels her heart pounding, gets hot and flushed and feels lightheaded. Also has some abdominal discomfort in the epigastric region, ongoing chronic mild SOB with PFTs performed yesterday without result, no radiation to chest pain, syncope, fever, body aches, productive cough, dysuria, bowel changes. Severity is described as 5-6/10. Palliating factors include just sitting down and breathing helps. Provoking factors include nothing specific, not brought on by exertion. Events leading up to the incident/Associated Symptoms: Patient has a history of IVDU and hepatitis C, liver lesion. Patient also states history of possible iron deficiency anemia and thyroid problems. Patient then also endorsed possible BV or yeast infection. Patient not anticoagulated. Related Data Home Medications Medication Instructions Recorded Confirmed clonazepam 0.5 mg tablet 0.5 mg PO DAILY 10/21/21 04/08/23 levonorgestrel 0.15 mg-ethinyl See Rx Instructions .Route 02/16/23 04/08/23 estradiol 30 mcg tablets,3 mos .COMPLEX #91 tabs pack(91) (Setlakin) albuterol sulfate 90 mcg/actuation 3 inh inhalation Q4H PRN #1 ea 03/22/23 04/08/23 breath activated powder inhaler metronidazole 0.75 % topical gel 1 applic topical DAILY BV 5 days 04/08/23 #45 grams metronidazole 500 mg tablet 500 mg PO BID BV 7 days #14 tabs 04/08/23 Previous Rx's Medication Instructions Recorded levonorgestrel 0.15 mg-ethinyl See Rx Instructions .Route 02/16/23 estradiol 30 mcg tablets,3 mos .COMPLEX #91 tabs pack(91) (Setlakin) albuterol sulfate 90 mcg/actuation 3 inh inhalation Q4H PRN #1 ea 03/22/23 breath activated powder inhaler metronidazole 0.75 % topical gel 1 applic topical DAILY BV 5 days 04/08/23 #45 grams metronidazole 500 mg tablet 500 mg PO BID BV 7 days #14 tabs 04/08/23 Allergies Allergy/AdvReac Type Severity Reaction Status Date / Time No Known Allergies Allergy Verified 04/08/23 08:08 General Stated Complaint: Palpitatns SUDHA: 3 Review of Systems All systems reviewed & are unremarkable except as noted in HPI and below PFSH All Active Problems (Updated 04/08/23 @ 10:30 by DEVON Queen) Anxiety reaction (Acute) Bacterial vaginosis (Acute) Hematuria (Acute) Closed contusion of liver (Acute) Shortness of breath (Acute) Liver contusion (Acute) Ganglion cyst of right foot (Acute) Exostosis (Acute) Fibroma (Acute) Pain in right foot (Acute) Medical History Dysuria Vaginal irritation Low TSH level LGSIL (low grade squamous intraepithelial dysplasia) 04/15/2021 screening Pap LGSIL. 05/01/2021. Normal appearing colposcopy. No biopsies taken. Recommend repeat pap PP Marijuana smoker History of intravenous drug use in remission History of opioid abuse Urinary frequency Hepatitis C Optic neuritis UTI (urinary tract infection) Surgical History H/O umbilical hernia repair S/P hernia repair Social History Smoking/Tobacco Use Status: Former Tobacco Use Smoking risk assessment performed?: Yes Alcohol Intake: current Alcohol Intake frequency: holidays/special occasions only Drug use: Daily Substance use type: does not use, former substance user and marijuana Details: clean/sober for 7 years Reports about 5 cigarettes a week since giving . Housing: other Do you feel safe at home: Yes Do you feel safe in your relationship?: Yes Female Reproductive History Menstrual control method: pills History History 4 Para 3 Hx # Term Pregnancies 3 Multiple births 0 Hx # Pregnancies 0 Ectopic pregnancies 0 AB induced 1 Hx Number of Living Children 3 AB spontaneous 0 Past Pregnancies Del. Date GA/Weeks # Preg Succ Route Wgt Sex Labor Lgth Anesth esia Location Prov Complic Unknown 38 No Yes vaginal Female 11hrs 19oz [facility] [place] [facility] 04/26/11 40 No vaginal 3345.244 g Male 36 hrs [facility] - [facility] 09/13/14 41 No vaginal 3600.389 g Female 12 hrs [facility] - service Delivery Date: Last Updated by: JUAREZ Hart; Delivery Date: 04/26/11 Last Updated by: Susan Richardson IOL for PROM at term, 36 hrs labor w/epidural, GBS negative. Nml , baby w/GBS meningitis at 3 weeks of age, is ok now. Ronald Delivery Date: 09/13/14 Last Updated by: Susan Richardson IOL for postdates; epidural. GBS neg. Nml Carabella Exam Narrative Exam Narrative: GENERAL APPEARANCE: Well-nourished, non-toxic, awake and alert, atraumatic, no acute distress. SKIN: Warm, pink, dry, intact, without rashes/lesions/ulcerations. HEAD: Normocephalic, atraumatic, normal hair distribution for gender/age. EYES: Pupils PERRLA, EOMs intact without nystagmus, normal conjunctiva, no exudates on lids/lashes. ENT: Nares patent, no circumoral cyanosis, no facial swelling NECK: Supple, trachea midline, painless cervical ROM. LUNGS/CHEST: Lungs CTA bilaterally- no rhonchi/rales/wheezes diffusely, non- labored respirations, normal A/P diameter, symmetrical expansion, no chest wall deformity HEART (CV/PV): Regular rate and rhythm without murmur, no peripheral edema, no JVD. ABDOMEN: Soft, non-distended, no guarding, mild epigastric/RUQ tenderness without Tracy's sign, no Rovsing's, no CVA tenderness bilaterally. MSK: Normal ROM, no swelling/deformity to bilateral UEs or LEs, moving all extremities without weakness, no cyanosis, spine midline without tenderness, normal curvature. NEURO: Mental Status AAOx4 - alert to person, place, time, events No facial droop, no forehead involvement. Motor: No focal weakness - strength 5/5 in bilateral UEs and LEs, proximal and distal, symmetric. Sensory: sensation intact to light touch globally. Gait normal: patient ambulated without ataxia into ED room. PSYCH: euthymic, cooperative, pleasant, appropriate speech Course Vital Signs Vital signs: Vital Signs Temperature 37.1 C 04/08/23 08:04 Pulse 65 04/08/23 08:04 Respiratory Rate 15 04/08/23 08:04 Blood Pressure 109/62 04/08/23 08:04 Pulse Oximetry 99 04/08/23 08:04 Temperature 37.1 C 04/08/23 08:04 Temperature Source Temporal Artery Scan 04/08/23 08:04 Pulse 65 04/08/23 08:04 Respiratory Rate 15 04/08/23 08:04 Respiratory Effort Non-Labored, Short of Breath 04/08/23 08:05 Blood Pressure 109/62 04/08/23 08:04 Blood Pressure Position Sitting 04/08/23 08:04 Pulse Oximetry 99 04/08/23 08:04 Oxygen Delivery Method Room Air 04/08/23 08:04 Oxygen Flow Rate 0 04/08/23 08:04 Pain Level 2 04/08/23 08:04 PAWSS Have you Been Recently Intoxicated or Drunk Within the Last 30 days?: No Have you Ever Experienced Previous Episodes of Alcohol Withdrawal?: No Have you ever Experienced Withdrawal Seizures?: No Have you ever Experienced Delirium Tremens(DT)s?: No Have you ever undergone Alcohol Rehabilitation Treatment (i.e, inpt ot outpatient treatment programs)?: No Have you ever Experienced Blackouts?: No Have you ever Combined Alcohol with other Downers within the last 90 days?: No Have you ever Combined Alcohol with any other Substance of Abuse during the last 90 days?: No Result: 0
[2023-04-08 08:42] LABS: Abs Immature Grans 0.01 10^3/uL (0.0-0.06); Absolute Basophil Count 0.04 10^3/uL (0.0-0.2); Absolute Eosinophil Count 0.05 10^3/uL (0.0-0.7); Absolute Lymphocyte Count 1.66 10^3/uL (1.2-3.4); Absolute Monocyte Count 0.41 10^3/uL (0.1-0.8); Absolute Neutrophil Count 3.07 10^3/uL (1.2-6.7); Basophils % 0.8; HCT 34.7 % (36.0-46.0); HGB 11.6 g/dL (11.2-15.7); Immature Grans % 0.2; Lymphocytes % 31.7; MCH 28.9 pg (27.0-33.0); MCHC 33.4 % (32.0-36.0); MCV 87 fL (80-95); Monocytes % 7.8; Neutrophils % 58.5; Platelet Count 284 10^3/uL (130-400); RBC 4.01 10^6/uL (3.93-5.22); RDW 13.2 % (11.7-14.6); RDW-SD 41.4 fL; WBC 5.24 10^3/uL (4.4-10.8)
[2023-04-08 08:49] LABS: Lipase 23 U/L (16-77)
[2023-04-08 09:03] LABS: ALT 14 U/L (14-59); AST 15 U/L (15-37); Albumin 4.4 g/dL (3.4-5.0); Alkaline Phosphatase 41 U/L (46-116); Anion Gap 12.7 mmol/L (3-11); BUN 11 mg/dL (7-18); Bilirubin, Total 0.9 mg/dL (0.2-1.0); CO2 24.3 mmol/L (21.0-32.0); CREATININE 0.8 mg/dL (0.55-1.02); Calcium 9.4 mg/dL (8.5-10.1); Chloride 103 mmol/L (98-107); Estimated GFR 100.96 (mL/min/1.73m2); Glucose 103 mg/dL (74-106); Magnesium 1.9 mg/dL (1.8-2.4); NT-proBNP 27 pg/mL (<300); Potassium 3.7 mmol/L (3.5-5.1); Sodium 140 mmol/L (136-145); TSH (W/Ref FT4) 0.92 uIU/mL (0.36-3.74); Total Protein 8.1 g/dL (6.4-8.2); Troponin I < 50 ng/L (<or=60)
[2023-04-08 09:27] LABS: Bilirubin Negative (Negative); Blood Moderate (Negative); Clarity Clear (Clear); Glucose Negative (Negative); Ketones Trace mg/dL (Negative); Leukocyte Esterase Negative (Negative); Nitrite Negative (Negative); Specific Gravity >= 1.030 (1.005-1.025); Urobilinogen 0.2 mg/dL (Up to 0.2); pH 5.5 (5-8)
[2023-04-08 09:40] LABS: Bacteria Rare HPF (Negative); C & S Indicated? No; Casts Negative LPF (Negative); Crystals Negative HPF (Negative); Epithelial Cells Few HPF (Negative); Mucus Trace (Negative)
[2023-04-08 10:09] LABS: D-Dimer 308 ng/mlFEU (<500)
[2023-04-08 10:43] VITALS: BP 113/54; PULSE 61; RESP 18; TEMP 37.1; O2SAT 100
== END 2023-04-08 10:48 | disposition home or self-care (01) ==
PROVIDERS: Emergency Provider Physician Assistant; PCP Family Medicine
DX: N76.0 Acute vaginitis (principal); B96.89 Other specified bacterial agents as the cause of diseases classified elsewhere; F41.1 Generalized anxiety disorder; R10.13 Epigastric pain; Z87.891 Personal history of nicotine dependence
CPT/HCPCS: 36415; 80053; 81025; 83690; 93005; 99284; 71046; 76705; 81003; 81015; 83735; 83880; 84443; 84484; 85025; 85379; 87480; 87510; 87660; 93010

== ENCOUNTER 2023-04-14 09:59 | Emergency (ER) | payer MEDICAID, SELFPAY ==
[2023-04-14 10:02] VITALS: BP 122/71; PULSE 69; RESP 16; O2SAT 100
--- NOTE | 2023-04-14 10:27 | ED.GENADUL_ITS ---
Discharge Plan Disposition Patient Disposition: Home Condition: Improving Discharge Details Clinical Impression: Vomiting Primary Care Provider: Francisco Mayorga ED Provider: Conner Noyola Home Meds and New Rx's Prescriptions: New metronidazole 0.75 % (37.5mg/5 gram) gel 1 appful vaginal DAILY 5 Days Qty: 70 0RF No Action clonazepam 0.5 mg tablet 0.5 mg PO DAILY Patient Comments: TAKE 1 TABLET BY MOUTH TWICE DAILY levonorgestrel-ethinyl estrad [Setlakin] 0.15 mg-30 mcg (91) tablets,dose pack,3 month See Rx Instructions .ROUTE .COMPLEX Qty: 91 3RF Dose Instruction: TAKE ONE TABLET BY MOUTH EVERY DAY Rx Instructions: TAKE ONE TABLET BY MOUTH EVERY DAY albuterol sulfate 90 mcg/actuation aerosol powdr breath activated 3 inh inhalation Q4H PRNQty: 1 0RF Rx Instructions: Up to 3 puffs with spacer 5 minutes apart every 4 hours as needed for cough wheezing or shortness of breath. metronidazole 500 mg tablet 500 mg PO BID 7 Days Qty: 14 0RF Discharge Instructions Instructions: Acute Nausea and Vomiting (ED) Medical Decision Making 32-year-old female presents with right ear pain nausea vomiting, vomiting has since resolved. Of note patient's daughter had similar symptoms yesterday. Afebrile nontoxic alert interactive. TMs clear bilaterally. Nonperitoneal no respiratory distress. No active vomiting. Consider viral URI with ear pressure related to serous material low suspicion for bacterial otitis media given appearance of TMs at this time. Low suspicion for vertigo given no spinning sensation. Vomiting is also resolved. Consider viral gastroenteritis versus foodborne illness. Will provide analgesia anti-inflammatory anxiolysis. Close reassessment. Will obtain urinalysis urine and COVID flu RSV swab 11: 20 patient resting comfortably no acute distress. Does not wish to wait for COVID results. Patient requesting refill for her BV suppository treatment HPI General Date/Time Provider Initiated Documentation: 04/14/23 10:08 . HPI Narrative: 32-year-old female presents with nausea and vomiting that began this morning, right ear discomfort. Related Data Home Medications Medication Instructions Recorded Confirmed clonazepam 0.5 mg tablet 0.5 mg PO DAILY 10/21/21 04/14/23 levonorgestrel 0.15 mg-ethinyl See Rx Instructions .Route 02/16/23 04/14/23 estradiol 30 mcg tablets,3 mos .COMPLEX #91 tabs pack(91) (Setlakin) albuterol sulfate 90 mcg/actuation 3 inh inhalation Q4H PRN #1 ea 03/22/23 04/14/23 breath activated powder inhaler metronidazole 500 mg tablet 500 mg PO BID BV 7 days #14 tabs 04/08/23 04/14/23 metronidazole 0.75 % (37.5 mg/5 1 appful vaginal DAILY 5 days #70 04/14/23 gram) vaginal gel grams Previous Rx's Medication Instructions Recorded levonorgestrel 0.15 mg-ethinyl See Rx Instructions .Route 02/16/23 estradiol 30 mcg tablets,3 mos .COMPLEX #91 tabs pack(91) (Setlakin) albuterol sulfate 90 mcg/actuation 3 inh inhalation Q4H PRN #1 ea 03/22/23 breath activated powder inhaler metronidazole 500 mg tablet 500 mg PO BID BV 7 days #14 tabs 04/08/23 metronidazole 0.75 % (37.5 mg/5 1 appful vaginal DAILY 5 days #70 04/14/23 gram) vaginal gel grams Allergies Allergy/AdvReac Type Severity Reaction Status Date / Time No Known Allergies Allergy Verified 04/14/23 10:06 General Stated Complaint: Nausea/Vomit/Diar SUDHA: 3 Review of Systems Narrative: Review of Systems Constitutional: negative Eyes: negative ENT: Ear pain Cardiovascular: negative Respiratory: negative Gastrointestinal: Nausea vomiting : negative Musculoskeletal: negative Skin: negative Neurologic: negative Psych: negative PFSH All Active Problems (Updated 04/14/23 @ 11:22 by Conner Noyola MD) Vomiting (Acute) Anxiety reaction (Acute) Bacterial vaginosis (Acute) Hematuria (Acute) Closed contusion of liver (Acute) Shortness of breath (Acute) Liver contusion (Acute) Ganglion cyst of right foot (Acute) Exostosis (Acute) Fibroma (Acute) Pain in right foot (Acute) Medical History Dysuria Vaginal irritation Low TSH level LGSIL (low grade squamous intraepithelial dysplasia) 04/15/2021 screening Pap LGSIL. 05/01/2021. Normal appearing colposcopy. No biopsies taken. Recommend repeat pap PP Marijuana smoker History of intravenous drug use in remission History of opioid abuse Urinary frequency Hepatitis C Optic neuritis UTI (urinary tract infection) Surgical History H/O umbilical hernia repair S/P hernia repair Social History Smoking/Tobacco Use Status: Former Tobacco Use Smoking risk assessment performed?: Yes Alcohol Intake: current Alcohol Intake frequency: holidays/special occasions only Drug use: Daily Substance use type: does not use, former substance user and marijuana Details: clean/sober for 7 years Reports about 5 cigarettes a week since giving . Housing: other Do you feel safe at home: Yes Do you feel safe in your relationship?: Yes Female Reproductive History Menstrual control method: pills History History 4 Para 3 Hx # Term Pregnancies 3 Multiple births 0 Hx # Pregnancies 0 Ectopic pregnancies 0 AB induced 1 Hx Number of Living Children 3 AB spontaneous 0 Past Pregnancies Del. Date GA/Weeks # Preg Succ Route Wgt Sex Labor Lgth Anesth esia Location Prov Complic Unknown 38 No Yes vaginal Female 11hrs 19oz [facility] [place] Pang CNM 04/26/11 40 No vaginal 3345.244 g Male 36 hrs [facility] H - Radha 09/13/14 41 No vaginal 3600.389 g Female 12 hrs [facility] - [facility] Delivery Date: Last Updated by: JUAREZ Hart; Delivery Date: 04/26/11 Last Updated by: Susan Richardson IOL for PROM at term, 36 hrs labor w/epidural, GBS negative. Nml , baby w/GBS meningitis at 3 weeks of age, is ok now. Ronald Delivery Date: 09/13/14 Last Updated by: Susan Richardson IOL for postdates; epidural. GBS neg. Nml Carabella Exam Narrative Exam Narrative: Physical Examination General: alert, awake, cooperative, resting comfortably, no acute distress HEENT: normocephalic, atraumatic; PERRL, EOM intact, conjunctiva normal; no nasal discharge; moist mucous membranes, oral and pharyngeal mucosa normal, tolerating secretions; TMs clear bilaterally Neck: supple, trachea midline; full ROM Chest: normal to inspection Respiratory: normal respiratory effort, speaking in full sentences GI: abdomen soft, non-tender, non-distended; no palpable mass or hepatosplenomegaly Skin: no lesions, rashes or trauma appreciated Neuro: AAOx3, normal speech, moving all extremities Psych: Anxiety Course Vital Signs Vital signs: Vital Signs Pulse 69 04/14/23 10:02 Respiratory Rate 16 04/14/23 10:02 Blood Pressure 122/71 04/14/23 10:02 Pulse Oximetry 100 04/14/23 10:02 Pulse 69 04/14/23 10:02 Respiratory Rate 16 04/14/23 10:02 Respiratory Effort Normal 04/14/23 10:11 Blood Pressure 122/71 04/14/23 10:02 Blood Pressure Position Sitting 04/14/23 10:02 Pulse Oximetry 100 04/14/23 10:02 Oxygen Delivery Method Room Air 04/14/23 10:02 Oxygen Flow Rate 0 04/14/23 10:02
[2023-04-14] MEDS: Ondansetron O.D.T. 4 MG TABEF SL (10:36)
[2023-04-14] MEDS: Dexamethasone 10 MG/ML VIAL PO (10:36)
[2023-04-14] MEDS: LORazepam 0.5 MG TAB PO (10:36)
[2023-04-14 10:49] LABS: Bilirubin Negative (Negative); Blood Large (Negative); Clarity Clear (Clear); Glucose Negative (Negative); Ketones Trace mg/dL (Negative); Leukocyte Esterase Negative (Negative); Nitrite Negative (Negative); Specific Gravity >= 1.030 (1.005-1.025); Urobilinogen 0.2 mg/dL (Up to 0.2); pH 5.5 (5-8)
[2023-04-14 10:59] LABS: Bacteria Negative HPF (Negative); C & S Indicated? No; Casts Negative LPF (Negative); Crystals Negative HPF (Negative); Epithelial Cells Few HPF (Negative); Mucus Trace (Negative); RBC 20-50 HPF (0-2)
[2023-04-14 11:25] LABS: Influenza A PCR Negative (Negative); Influenza B PCR Negative (Negative); RSV PCR Negative (Negative)
[2023-04-14 11:27] LABS: COVID-19 PCR Positive (Negative); Source Nasopharynx
== END 2023-04-14 11:30 | disposition home or self-care (01) ==
PROVIDERS: Emergency Provider Emergency Medicine; PCP Family Medicine
DX: R11.10 Vomiting, unspecified (principal); H92.01 Otalgia, right ear; R42 Dizziness and giddiness; Z87.891 Personal history of nicotine dependence; Z20.822 Contact with and (suspected) exposure to COVID-19
CPT/HCPCS: 81025; 87637; 99283; 81003; 81015; J1100

== ENCOUNTER 2023-08-19 15:22 | Outpatient (REF) | payer MEDICAID, SELFPAY ==
[2023-08-19 14:47] LABS: Abs Immature Grans 0.02 10^3/uL (0.0-0.06); Absolute Basophil Count 0.03 10^3/uL (0.0-0.2); Absolute Eosinophil Count 0.02 10^3/uL (0.0-0.7); Absolute Monocyte Count 0.81 10^3/uL (0.1-0.8); Absolute Neutrophil Count 5.98 10^3/uL (1.2-6.7); Basophils % 0.4; Eosinophils % 0.2; HCT 36.7 % (36.0-46.0); HGB 12.1 g/dL (11.2-15.7); Immature Grans % 0.2; Lymphocytes % 18.9; MCH 28.1 pg (27.0-33.0); MCV 85 fL (80-95); MPV 10.3 fL (8.0-11.0); Monocytes % 9.6; Neutrophils % 70.7; Platelet Count 307 10^3/uL (130-400); RBC 4.31 10^6/uL (3.93-5.22); RDW 13.9 % (11.7-14.6); RDW-SD 43.7 fL; WBC 8.46 10^3/uL (4.4-10.8)
[2023-08-19 15:05] LABS: ALT 18 U/L (14-59); AST 17 U/L (15-37); Alkaline Phosphatase 50 U/L (46-116); Anion Gap 11.3 mmol/L (3-11); BUN 7 mg/dL (7-18); Bilirubin, Total 0.2 mg/dL (0.2-1.0); C-Reactive Protein 1.03 mg/dL (<or=0.5); CO2 23.7 mmol/L (21.0-32.0); CREATININE 0.7 mg/dL (0.55-1.02); Calcium 8.5 mg/dL (8.5-10.1); Chloride 104 mmol/L (98-107); Estimated GFR 117.77 (mL/min/1.73m2); Glucose 85 mg/dL (74-106); Potassium 4.5 mmol/L (3.5-5.1); Sodium 139 mmol/L (136-145); Total Protein 7.6 g/dL (6.4-8.2)
== END 2023-08-19 15:23 | disposition home or self-care (01) ==
LOC: NCHCN 15:22
PROVIDERS: PCP Family Medicine; Visit Provider Family Medicine
DX: M79.18 Myalgia, other site (principal); R51.9 Headache, unspecified
CPT/HCPCS: 80053; 85025; 86140

== ENCOUNTER 2023-09-06 09:52 | Emergency (ER) | payer MEDICAID, SELFPAY ==
[2023-09-06 10:02] VITALS: BP 133/77; PULSE 86; RESP 18; TEMP 36.7; O2SAT 97
[2023-09-06 10:22] VITALS: BP 133/77; PULSE 86; RESP 18; TEMP 36.7; O2SAT 97
--- NOTE | 2023-09-06 10:51 | ED.GENADUL_ITS ---
Discharge Plan Disposition Patient Disposition: Home Condition: Stable Discharge Details Clinical Impression: URI (upper respiratory infection) Primary Care Provider: Francisco Mayorga ED Provider: Aura Zarate Home Meds and New Rx's Prescriptions: No Action clonazepam 0.5 mg tablet 0.5 mg PO DAILY Patient Comments: TAKE 1 TABLET BY MOUTH TWICE DAILY levonorgestrel-ethinyl estrad [Setlakin] 0.15 mg-30 mcg (91) tablets,dose pack,3 month See Rx Instructions .ROUTE .COMPLEX Qty: 91 3RF Dose Instruction: TAKE ONE TABLET BY MOUTH EVERY DAY Rx Instructions: TAKE ONE TABLET BY MOUTH EVERY DAY albuterol sulfate 90 mcg/actuation aerosol powdr breath activated 3 inh inhalation Q4H PRNQty: 1 0RF Rx Instructions: Up to 3 puffs with spacer 5 minutes apart every 4 hours as needed for cough wheezing or shortness of breath. Discharge Instructions Instructions: Upper Respiratory Infection (ED) Additional Instructions: Use over the counter medications for symptom relief * Flonase * Claritin * Mucinex * Warm salt water gargles * Lots of fluids * motrin & Tylenol for fever or pain Follow up with PCP for worsening symptoms Discharge Data Discharge Date/Time-TO BE ENTERED AT DEPARTURE: 09/06/23 11:39 HPI General Date/Time Provider Initiated Documentation: 09/06/23 10:24 . Limitations to Documentation: no limitations . Information obtained by: patient . HPI Narrative: 33-year-old female without significant past medical history presents for evaluation of URI symptoms. Symptoms started yesterday. Associated with the ear fullness and pressure, some neck discomfort. Sore throat worse with swallowing. Cough, not really productive. Children have symptoms as well. Reports similar symptoms about a month ago. No fever Related Data Home Medications Medication Instructions Recorded Confirmed clonazepam 0.5 mg tablet 0.5 mg PO DAILY 10/21/21 09/06/23 levonorgestrel 0.15 mg-ethinyl See Rx Instructions .Route 02/16/23 09/06/23 estradiol 30 mcg tablets,3 mos .COMPLEX #91 tabs pack(91) (Setlakin) albuterol sulfate 90 mcg/actuation 3 inh inhalation Q4H PRN #1 ea 03/22/23 09/06/23 breath activated powder inhaler Previous Rx's Medication Instructions Recorded levonorgestrel 0.15 mg-ethinyl See Rx Instructions .Route 02/16/23 estradiol 30 mcg tablets,3 mos .COMPLEX #91 tabs pack(91) (Setlakin) albuterol sulfate 90 mcg/actuation 3 inh inhalation Q4H PRN #1 ea 03/22/23 breath activated powder inhaler Allergies Allergy/AdvReac Type Severity Reaction Status Date / Time No Known Allergies Allergy Verified 09/06/23 10:35 General Stated Complaint: RespSymp SUDHA: 4 Exam Narrative Exam Narrative: Review of Systems: All systems reviewed & are unremarkable except as noted in HPI and below Well-developed, no acute distress NCAT PERRL, normal conjunctiva Bilateral TM with minimal serous effusion, no erythema or bulging posterior oropharynx with mild erythema, no tonsillar enlargement or exudates No significant cervical adenopathy Neck with full range of motion, no meningeal signs RRR, no murmur Unlabored respiratory effort, clear bilaterally Nondistended abdomen Extremities w/o deformity, no cyanosis, no edema No rashes or lesions. no focal neurologic deficits Appropriate mood and affect Course Vital Signs Vital signs: Vital Signs Temperature 36.7 C 09/06/23 10:02 Pulse 86 09/06/23 10:02 Respiratory Rate 18 09/06/23 10:02 Blood Pressure 133/77 09/06/23 10:02 Pulse Oximetry 97 09/06/23 10:02 Temperature 36.7 C 09/06/23 10:22 Temperature Source Skin 09/06/23 10:22 Pulse 86 09/06/23 10:22 Respiratory Rate 18 09/06/23 10:22 Respiratory Effort Normal 09/06/23 10:22 Respiratory Depth Normal 09/06/23 10:22 Blood Pressure 133/77 09/06/23 10:22 Blood Pressure Position Sitting 09/06/23 10:22 Pulse Oximetry 97 09/06/23 10:22 Oxygen Delivery Method Room Air 09/06/23 10:22 Oxygen Flow Rate 0 09/06/23 10:22 Medical Decision Making Emergent evaluation of URI symptoms. Patient is hemodynamically stable and afebrile. She is not having significant respiratory distress or hypoxia. 2 of her children have similar sick symptoms. I suspect this is likely viral illness. Her COVID flu and RSV testing are negative. I have provided some [id number] medication guidance and for symptom control. Recommend close follow-up with PCP. Medical Records Medical records reviewed: Yes I reviewed the patient's medical records. Lab Data Lab results reviewed: Yes I reviewed the patient's lab results. Quality:SDOH Health Related Social Needs: No Data to Display PFSH All Active Problems (Updated 09/06/23 @ 11:19 by Aura Zarate MD) URI (upper respiratory infection) (Acute) Liver contusion (Acute) Ganglion cyst of right foot (Acute) Exostosis (Acute) Fibroma (Acute) Pain in right foot (Acute) Medical History Dysuria Vaginal irritation Low TSH level LGSIL (low grade squamous intraepithelial dysplasia) 04/15/2021 screening Pap LGSIL. 05/01/2021. Normal appearing colposcopy. No biopsies taken. Recommend repeat pap PP Marijuana smoker History of intravenous drug use in remission History of opioid abuse Urinary frequency Hepatitis C Optic neuritis UTI (urinary tract infection) Surgical History H/O umbilical hernia repair S/P hernia repair Social History Smoking/Tobacco Use Status: Former Tobacco Use Smoking risk assessment performed?: Yes Alcohol Intake: current Alcohol Intake frequency: holidays/special occasions only Drug use: Daily Substance use type: does not use, former substance user and marijuana Details: clean/sober for 7 years Reports about 5 cigarettes a week since giving . Housing: other Do you feel safe at home: Yes Do you feel safe in your relationship?: Yes Female Reproductive History Menstrual control method: pills History History 4 Para 3 Hx # Term Pregnancies 3 Multiple births 0 Hx # Pregnancies 0 Ectopic pregnancies 0 AB induced 1 Hx Number of Living Children 3 AB spontaneous 0 Past Pregnancies Del. Date GA/Weeks # Preg Succ Route Wgt Sex Labor Lgth Anesth esia Location Prov Complic Unknown 38 No Yes vaginal Female 11hrs 19oz [facility] CN[facility] 04/26/11 40 No vaginal 3345.244 g Male 36 hrs [facility] - Radha 09/13/14 41 No vaginal 3600.389 g Female [facility] hrs [facility] Delivery Date: Last Updated by: Hermelinda Wilkinson, JUAREZ Peguero; Delivery Date: 04/26/11 Last Updated by: Susan Richardson IOL for PROM at term, 36 hrs labor w/epidural, GBS negative. Nml , baby w/GBS meningitis at 3 weeks of age, is ok now. Ronald Delivery Date: 09/13/14 Last Updated by: Susan Richardson IOL for postdates; epidural. GBS neg. Nml Geni
[2023-09-06 11:51] LABS: COVID-19 PCR Negative (Negative); Influenza A PCR Negative (Negative); Influenza B PCR Negative (Negative); RSV PCR Negative (Negative)
[2023-09-06 11:54] LABS: Source Nasopharynx
== END 2023-09-06 11:39 | disposition home or self-care (01) ==
PROVIDERS: Emergency Provider Emergency Medicine; PCP Family Medicine
DX: J06.9 Acute upper respiratory infection, unspecified (principal); Z87.891 Personal history of nicotine dependence
CPT/HCPCS: 87637; 99283

== ENCOUNTER 2023-09-27 07:37 | Emergency (ER) | payer MEDICAID, SELFPAY ==
[2023-09-27 07:43] VITALS: BP 123/73; PULSE 69; RESP 18; TEMP 36.4; O2SAT 97
--- NOTE | 2023-09-27 08:00 | ED.GENADUL_ITS ---
Discharge Plan Disposition Patient Disposition: Home Condition: Stable Discharge Details Clinical Impression: Tick bite Primary Care Provider: Francisco Mayorga ED Provider: Balta Brown Home Meds and New Rx's Prescriptions: New doxycycline hyclate 100 mg tablet 100 mg PO BID Qty: 20 0RF Continued clonazepam 0.5 mg tablet 0.5 mg PO DAILY Patient Comments: TAKE 1 TABLET BY MOUTH TWICE DAILY levonorgestrel-ethinyl estrad [Setlakin] 0.15 mg-30 mcg (91) tablets,dose pack,3 month See Rx Instructions .ROUTE .COMPLEX Qty: 91 3RF Dose Instruction: TAKE ONE TABLET BY MOUTH EVERY DAY Rx Instructions: TAKE ONE TABLET BY MOUTH EVERY DAY albuterol sulfate 90 mcg/actuation aerosol powdr breath activated 3 inh inhalation Q4H PRNQty: 1 0RF Rx Instructions: Up to 3 puffs with spacer 5 minutes apart every 4 hours as needed for cough wheezing or shortness of breath. Discharge Instructions Additional Instructions: Take the antibiotic as prescribed If you still have some discomfort in a week follow-up with your primary care provider If you develop fevers, feels significantly more ill return to the emergency department for reevaluation HPI General Mode of arrival: ambulatory . Date/Time Provider Initiated Documentation: 09/27/23 07:43 . Limitations to Documentation: no limitations . Information obtained by: patient . History of Present Illness 33 year old F presents to the emergency department with the chief complaint of Tick bite, described as moderate, and is localized to the right and lower extremity. Patient started experiencing this day(s) (1) and it has been constant. No relieving factors improve symptom(s), No exacerbating factors reported . Patient notes no other symptoms.. Patient did receive the following treatments prior to arrival, none Related Data Home Medications Medication Instructions Recorded Confirmed clonazepam 0.5 mg tablet 0.5 mg PO DAILY 10/21/21 09/27/23 levonorgestrel 0.15 mg-ethinyl See Rx Instructions .Route 02/16/23 09/27/23 estradiol 30 mcg tablets,3 mos .COMPLEX #91 tabs pack(91) (Setlakin) albuterol sulfate 90 mcg/actuation 3 inh inhalation Q4H PRN #1 ea 03/22/23 09/27/23 breath activated powder inhaler doxycycline hyclate 100 mg tablet 100 mg PO BID #20 tabs 09/27/23 Previous Rx's Medication Instructions Recorded levonorgestrel 0.15 mg-ethinyl See Rx Instructions .Route 02/16/23 estradiol 30 mcg tablets,3 mos .COMPLEX #91 tabs pack(91) (Setlakin) albuterol sulfate 90 mcg/actuation 3 inh inhalation Q4H PRN #1 ea 03/22/23 breath activated powder inhaler doxycycline hyclate 100 mg tablet 100 mg PO BID #20 tabs 09/27/23 Allergies Allergy/AdvReac Type Severity Reaction Status Date / Time No Known Allergies Allergy Verified 09/27/23 07:44 General Stated Complaint: InsectBite SUDHA: 4 Review of Systems All systems reviewed & are unremarkable except as noted in HPI and below Constitutional Constitutional: Denies chills, Denies fever(s) and Denies weakness Cardiovascular Cardiovascular: Denies chest pain and Denies dyspnea Respiratory Respiratory: Denies cough and Denies dyspnea Gastrointestinal Gastrointestinal: Denies abdominal pain, Denies nausea and Denies vomiting Musculoskeletal Musculoskeletal: Denies joint swelling Integumentary/Breasts Skin/Breast: Reports rash Neurologic Neurologic: Denies weakness Psychiatric Psychiatric: Denies depression Exam Const General: no acute distress Orientation: alert HENMT Head: normal to inspection Ears: external ears normal General nose exam: external nose normal Mouth: moist mucous membranes Eyes General: appearance normal, both eyes and all related structures Neck Neck: normal visual inspection Resp Effort & Inspection: normal respiratory effort and able to speak in complete sentences Cardio Rate: regular rate Skin Rashes: rashes noted Neuro General: patient alert and patient oriented x3 Extrem General: normal to inspection Psych Mental Status: mental status grossly normal Course Vital Signs Vital signs: Vital Signs Temperature 36.4 C L 09/27/23 07:43 Pulse 69 09/27/23 07:43 Respiratory Rate 18 09/27/23 07:43 Blood Pressure 123/73 09/27/23 07:43 Pulse Oximetry 97 09/27/23 07:43 Temperature 36.4 C L 09/27/23 07:43 Temperature Source Oral 09/27/23 07:43 Pulse 69 09/27/23 07:43 Respiratory Rate 18 09/27/23 07:43 Respiratory Effort Normal, Non-Labored 09/27/23 07:44 Blood Pressure 123/73 09/27/23 07:43 Blood Pressure Position Sitting 09/27/23 07:43 Pulse Oximetry 97 09/27/23 07:43 Oxygen Delivery Method Room Air 09/27/23 07:43 Oxygen Flow Rate 0 09/27/23 07:43 Pain Level 2 09/27/23 07:43 Medical Decision Making 33-year-old female comes in with a rash on her right leg where she removed a tick yesterday. She is unsure how long the tick was on there for. She has some mild pain in the area on the right leg where she removed the tick. She denies any fevers, difficulty breathing, joint pain. She is alert and oriented on arrival and appears well. She does have a bull's-eye lesion approximately 5 cm in diameter, on the right anterior mid thigh where she said the tick was removed. No crepitus, no fluctuance. Suspect erythema migrans, will initiate treatment with doxycycline for 10 days, advised to follow-up with her PCP and return precautions given Differential Diagnosis Differential Diagnosis: Erythema migrans, tick bite, Lyme Quality:SDOH Health Related Social Needs: No Data to Display PFSH All Active Problems (Updated 09/27/23 @ 08:00 by Balta Brown MD) Tick bite (Acute) URI (upper respiratory infection) (Acute) Liver contusion (Acute) Ganglion cyst of right foot (Acute) Exostosis (Acute) Fibroma (Acute) Pain in right foot (Acute) Medical History Dysuria Vaginal irritation Low TSH level LGSIL (low grade squamous intraepithelial dysplasia) 04/15/2021 screening Pap LGSIL. 05/01/2021. Normal appearing colposcopy. No biopsies taken. Recommend repeat pap PP Marijuana smoker History of intravenous drug use in remission History of opioid abuse Urinary frequency Hepatitis C Optic neuritis UTI (urinary tract infection) Surgical History H/O umbilical hernia repair S/P hernia repair Social History Smoking/Tobacco Use Status: Current every day Tobacco Type: cigarettes and e- cigarettes Smoking risk assessment performed?: Yes Alcohol Intake: current Alcohol Intake frequency: holidays/special occasions only Drug use: Daily Substance use type: does not use, former substance user and marijuana Details: clean/sober for 7 years Reports about 5 cigarettes a week since giving . Housing: other Do you feel safe at home: Yes Do you feel safe in your relationship?: Yes Female Reproductive History Menstrual control method: pills History History 2 4 Para 3 Hx # Term Pregnancies 3 Multiple births 0 Hx # Pregnancies 0 Ectopic pregnancies 0 AB induced 1 Hx Number of Living Children 3 AB spontaneous 0 Past Pregnancies Del. Date GA/Weeks # Preg Succ Route Wgt Sex Labor Lgth Anesth esia Location Prov Complic Unknown 38 No Yes vaginal Female 11hrs 19oz [facility] [place] Pang CNM 04/26/11 40 No vaginal 3345.244 g Male 36 hrs [facility] H - [facility] 09/13/14 41 No vaginal 3600.389 g Female 12 hrs [facility] Delivery Date: Last Updated by: Hermelinda Wilkinson, JUAREZ Peguero; Delivery Date: 04/26/11 Last Updated by: Susan Richardson IOL for PROM at term, 36 hrs labor w/epidural, GBS negative. Nml , baby w/GBS meningitis at 3 weeks of age, is ok now. Ronald Delivery Date: 09/13/14 Last Updated by: Susan Richardson IOL for postdates; epidural. GBS neg. Nml Geni
== END 2023-09-27 08:06 | disposition home or self-care (01) ==
PROVIDERS: Emergency Provider Emergency Medicine; PCP Family Medicine
DX: S70.361A Insect bite (nonvenomous), right thigh, initial encounter (principal); F17.210 Nicotine dependence, cigarettes, uncomplicated; F17.290 Nicotine dependence, other tobacco product, uncomplicated; W57.XXXA Bitten or stung by nonvenomous insect and other nonvenomous arthropods, initial encounter; Y93.89 Activity, other specified; Y92.838 Other recreation area as the place of occurrence of the external cause
CPT/HCPCS: 99283

== ENCOUNTER 2023-11-02 11:11 | Emergency (ER) | payer MEDICAID, SELFPAY ==
[2023-11-02 11:15] VITALS: BP 131/75; PULSE 86; RESP 16; TEMP 37.7; O2SAT 98
--- NOTE | 2023-11-02 11:22 | ED.GENADUL_ITS ---
Discharge Plan Disposition Patient Disposition: Home Condition: Stable Discharge Details Clinical Impression: Myalgia Primary Care Provider: Francisco Mayorga ED Provider: Cedrick Maher Home Meds and New Rx's Prescriptions: New doxycycline hyclate 100 mg tablet 100 mg PO BID 21 Days Qty: 42 0RF Continued clonazepam 0.5 mg tablet 0.5 mg PO DAILY Patient Comments: TAKE 1 TABLET BY MOUTH TWICE DAILY levonorgestrel-ethinyl estrad [Setlakin] 0.15 mg-30 mcg (91) tablets,dose pack,3 month See Rx Instructions .ROUTE .COMPLEX Qty: 91 3RF Dose Instruction: TAKE ONE TABLET BY MOUTH EVERY DAY Rx Instructions: TAKE ONE TABLET BY MOUTH EVERY DAY Discharge Instructions Instructions: Lyme disease, Doxycycline, Lyme Disease Test Additional Instructions: You were seen in the emergency department for your continued body aches after treatment for Lyme disease. I have sent further prescription for doxycycline to your pharmacy, you may restart this medicine tomorrow, he should have a Lyme test result tomorrow on your my portal. The send out for other tickborne illnesses will take a few days. Otherwise your blood work and EKG are benign, blood cultures are pending. Please use therapeutic dosing of Tylenol (acetamenophen) & Advil (ibuprofen) in an alternating fashion as follows: Take 1000mg of Tylenol every 6 hours without missing doses- that is 4 times per day. [place] in between the Tylenol dosings, take 400-600mg of Advil also on a 6 hour schedule, that is also 4 times per day. The daily maximum dosing of Tylenol is 4000mg, and the daily maximum dosing of Advil is 2400mg. This is safe to do for weeks. Please note that some common cold medications & prescription pain medications may contain acetamenophen and you need to read OTC drug labels and factor that in to maximum daily dosings. Please return to the emergency department for any severe increase in body aches, uncontrollable fevers, chest pain or palpitations, confusion, severe headache with neck stiffness. Referrals: Francisco Mayorga MD [Primary Care Provider] - Discharge Data Discharge Date/Time-TO BE ENTERED AT DEPARTURE: 11/02/23 13:17 HPI General Date/Time Provider Initiated Documentation: 11/02/23 11:22 . HPI Narrative: 33 year-old female presents to ED today by POV/ambulating with a chief complaint of myalgias, fevers, joint pains, headaches after completing 10 days of doxycycline for a tick bite with erythema migrans, states symptoms came back ~1 week after finishing doxy. Quality described as generalized soreness/fatigue, no radiation to chest pain, palpitations, new rashes, large swelling of any joint, nuchal rigidity. Severity is described as moderate. Palliating factors include nothing specific. Provoking factors include tick bite. Patient not anticoagulated. Related Data Home Medications Medication Instructions Recorded Confirmed clonazepam 0.5 mg tablet 0.5 mg PO DAILY 10/21/21 11/02/23 levonorgestrel 0.15 mg-ethinyl See Rx Instructions .Route 02/16/23 11/02/23 estradiol 30 mcg tablets,3 mos .COMPLEX #91 tabs pack(91) (Setlakin) doxycycline hyclate 100 mg tablet 100 mg PO BID 21 days #42 tabs 11/02/23 Previous Rx's Medication Instructions Recorded levonorgestrel 0.15 mg-ethinyl See Rx Instructions .Route 02/16/23 estradiol 30 mcg tablets,3 mos .COMPLEX #91 tabs pack(91) (Setlakin) doxycycline hyclate 100 mg tablet 100 mg PO BID 21 days #42 tabs 11/02/23 Allergies Allergy/AdvReac Type Severity Reaction Status Date / Time No Known Allergies Allergy Verified 11/02/23 11:19 General Stated Complaint: GenMedical SUDHA: 3 Review of Systems All systems reviewed & are unremarkable except as noted in HPI and below Exam Narrative Exam Narrative: GENERAL APPEARANCE: Well-nourished, non-toxic, awake and alert, atraumatic, no acute distress. SKIN: Warm, pink, dry, intact, without rashes/lesions/ulcerations. HEAD: Normocephalic, atraumatic, normal hair distribution for gender/age. EYES: Pupils PERRLA, EOMs intact without nystagmus, normal conjunctiva, no exudates on lids/lashes. ENT: Nares patent, no circumoral cyanosis, no facial swelling NECK: Supple, trachea midline, painless cervical ROM. LUNGS/CHEST: Lungs CTA bilaterally, non-labored respirations, normal A/P diameter, symmetrical expansion, no chest wall deformity HEART (CV/PV): Regular rate and rhythm without murmur, no peripheral edema, no JVD. ABDOMEN: Soft, non-distended, no guarding. MSK: Normal ROM, no swelling/deformity to bilateral UEs or LEs, moving all extremities without weakness, no cyanosis, spine midline without tenderness, normal curvature. NEURO: Mental Status AAOx4 - alert to person, place, time, events No facial droop, no forehead involvement. Motor: No focal weakness - strength 5/5 in bilateral UEs and LEs, proximal and distal, symmetric. Sensory: sensation intact to light touch globally. Gait normal: patient ambulated without ataxia into ED room. PSYCH: euthymic, cooperative, pleasant, appropriate speech Course Vital Signs Vital signs: Vital Signs Temperature 37.7 C H 11/02/23 11:15 Pulse 86 11/02/23 11:15 Respiratory Rate 16 11/02/23 11:15 Blood Pressure 131/75 11/02/23 11:15 Pulse Oximetry 98 11/02/23 11:15 Temperature 37.7 C H 11/02/23 11:15 Temperature Source Tympanic 11/02/23 11:15 Pulse 86 11/02/23 11:15 Respiratory Rate 16 11/02/23 11:15 Blood Pressure 131/75 11/02/23 11:15 Blood Pressure Position Sitting 11/02/23 11:15 Pulse Oximetry 98 11/02/23 11:15 Oxygen Delivery Method Room Air 11/02/23 11:15 Oxygen Flow Rate 0 11/02/23 11:15 Pain Level 6 11/02/23 11:15 Comment had ibuprofen at 0700 11/02/23 11:15 Medical Decision Making This dictation utilizes [id number] dictation software and may contain unedited grammatical errors. 33 year-old female presents to ED today by POV/ambulating with a chief complaint of myalgias, fevers, joint pains, headaches after completing 10 days of doxycycline for a tick bite with erythema migrans, states symptoms came back ~1 week after finishing doxy. Quality described as generalized soreness/fatigue, no radiation to chest pain, palpitations, new rashes, large swelling of any joint, nuchal rigidity. Severity is described as moderate. Palliating factors include nothing specific. Provoking factors include tick bite. Patients' medical history: History of hepatitis C. Family and social history: Noncontributory. Pertinent exam findings / vital signs include benign cardiopulmonary status, low-grade fever, benign abdomen, no large swelling to any joints. Differential / pathologies of concern include Lyme disease, viral syndrome, arthritis, heat exhaustion Diagnostic studies of: -CBC, CMP, tick panel, blood cultures, EKG. -CBC benign -CMP benign small anion gap -Tick panel pending -Blood cultures pending -EKG shows no signs of ischemia or heart block, do not suspect Lyme carditis Interventions of: -Restart 21-day course of doxycycline, follow-up with primary care provider and keep checking back for tick panel results. ED Course/Assessment/Plan: 33-year-old female had a tick bite with rash, completed 10 days of doxycycline but is still having polyarthralgias, headache, fatigue, this is likely undertreated Lyme disease and I plan to start the patient on 21 days of doxycycline with test pending, this could be another tickborne illness as well like anaplasmosis or Babesia. Counseled the patient on following her lab result s as they come back from send out on her [facility], following up with her primary care provider. Strict return criteria for any palpitations, chest pain, worsening neck stiffness, confusion or altered mentation. Findings not consistent with sepsis, no elevated WBCs, not consistent with Lyme carditis, not consistent with gross swelling to a joint for Lyme arthritis. Disposition of Myalgia. Patient verbalized understanding of the plan and return to ED criteria and engaged in shared decision making. Medical Records Medical records reviewed: Yes I reviewed the patient's medical records. Lab Data Lab results reviewed: Yes I reviewed the patient's lab results. Labs: 11/02/23 12:30 Blood Blood Culture - Pending 11/02/23 11:50 Blood Blood Culture - Pending Laboratory Tests Range/Units 11/02/23 11:50 WBC (4.4-10.8) 10^3/uL 7.27 RBC (3.93-5.22) 10^6/uL 4.02 Hgb (11.2-15.7) g/dL 11.3 Hct (36.0-46.0) % 34.8 L MCV (80-95) fL 87 MCH (27.0-33.0) pg 28.1 MCHC (32.0-36.0) % 32.5 RDW (11.7-14.6) % 14.9 H Plt Count (130-400) 10^3/uL MPV (8.0-11.0) fL Immature Gran % % 0.4 Neutrophils % % 67.4 Lymphocytes % % 26.8 Monocytes % % 4.3 Eosinophils % % 0.7 Basophils % % 0.4 Nucleated RBC % (0.0-0.3) % 0.0 Absolute Neutrophils (1.2-6.7) 10^3/uL 4.90 Absolute Lymphocytes (1.2-3.4) 10^3/uL 1.95 Absolute Monocytes (0.1-0.8) 10^3/uL 0.31 Absolute Eosinophils (0.0-0.7) 10^3/uL 0.05 Absolute Basophils (0.0-0.2) 10^3/uL 0.03 RBC Morphology Normal Sodium (136-145) mmol/L 139 Potassium (3.5-5.1) mmol/L 4.1 Chloride (98-107) mmol/L 105 Carbon Dioxide (21.0-32.0) mmol/L 18.9 L Anion Gap (3-11) mmol/L 15.1 H BUN (7-18) mg/dL 13 Creatinine (0.55-1.02) mg/dL 0.9 Est GFR (CKD-EPI 2020) (mL/min/1.73m2) 87.11 Glucose (74-106) mg/dL 115 H Calcium (8.5-10.1) mg/dL 9.0 Total Bilirubin (0.2-1.0) mg/dL 0.31 AST (15-37) U/L 18 ALT (14-59) U/L 16 Alkaline Phosphatase (46-116) U/L 39 L Total Protein (6.4-8.2) g/dL 7.8 Albumin (3.4-5.0) g/dL 4.1 Quality:SDOH Health Related Social Needs: No Data to Display PFSH All Active Problems (Updated 11/02/23 @ 13:02 by DEVON Queen) Myalgia (Acute) Liver contusion (Acute) Ganglion cyst of right foot (Acute) Exostosis (Acute) Fibroma (Acute) Pain in right foot (Acute) Medical History Dysuria Vaginal irritation Low TSH level LGSIL (low grade squamous intraepithelial dysplasia) 04/15/2021 screening Pap LGSIL. 05/01/2021. Normal appearing colposcopy. No biopsies taken. Recommend repeat pap PP Marijuana smoker History of intravenous drug use in remission History of opioid abuse Urinary frequency Hepatitis C Optic neuritis UTI (urinary tract infection) Surgical History H/O umbilical hernia repair S/P hernia repair Social History Smoking/Tobacco Use Status: Current every day Tobacco Type: cigarettes and e- cigarettes Smoking risk assessment performed?: Yes Alcohol Intake: current Alcohol Intake frequency: holidays/special occasions only Drug use: Daily Substance use type: does not use, former substance user and marijuana Details: clean/sober for 7 years Reports about 5 cigarettes a week since giving . Housing: other Do you feel safe at home: Yes Do you feel safe in your relationship?: Yes Female Reproductive History Menstrual control method: pills History History 4 Para 3 Hx # Term Pregnancies 3 Multiple births 0 Hx # Pregnancies 0 Ectopic pregnancies 0 AB induced 1 Hx Number of Living Children 3 AB spontaneous 0 Past Pregnancies Del. Date GA/Weeks # Preg Succ Route Wgt Sex Labor Lgth Anesth esia Location Prov Complic Unknown 38 No Yes vaginal Female 11hrs 19oz [facility] [place] Pang CNM 04/26/11 40 No vaginal 3345.244 g Male 36 hrs [facility] - [facility] 09/13/14 41 No vaginal 3600.389 g Female 12 hrs [facility] - [facility] service Delivery Date: Last Updated by: JUAREZ Hart; Delivery Date: 04/26/11 Last Updated by: Susan Richardson IOL for PROM at term, 36 hrs labor w/epidural, GBS negative. Nml , baby w/GBS meningitis at 3 weeks of age, is ok now. Ronald Delivery Date: 09/13/14 Last Updated by: Susan Richardson IOL for postdates; epidural. GBS neg. Nml Geni
--- NOTE | 2023-11-02 11:30 | RT.EKG_ITS ---
APPROVED REPORT Exam: Resting ECG Reason for Exam: body aches, ?lyme Patient Location: E HR:71 bpm ECG Measurements Heart Rate 71 AXIS AL 134 P 62 QRSd 109 QRS 47 QT 362 T 40 QTc 392 Conclusion Sinus rhythm 71 no stemi
[2023-11-02 11:59] LABS: Abs Immature Grans 0.03 10^3/uL (0.0-0.06); Absolute Basophil Count 0.03 10^3/uL (0.0-0.2); Absolute Eosinophil Count 0.05 10^3/uL (0.0-0.7); Absolute Lymphocyte Count 1.95 10^3/uL (1.2-3.4); Absolute Monocyte Count 0.31 10^3/uL (0.1-0.8); Basophils % 0.4 %; Eosinophils % 0.7 %; HCT 34.8 % (36.0-46.0); HGB 11.3 g/dL (11.2-15.7); Immature Grans % 0.4 %; Lymphocytes % 26.8 %; MCH 28.1 pg (27.0-33.0); MCHC 32.5 % (32.0-36.0); MCV 87 fL (80-95); Monocytes % 4.3 %; Neutrophils % 67.4 %; RBC 4.02 10^6/uL (3.93-5.22); RDW 14.9 % (11.7-14.6); WBC 7.27 10^3/uL (4.4-10.8)
[2023-11-02 12:10] LABS: Diff Comment Diff Reviewed; RBC Morphology Normal
[2023-11-02 12:12] LABS: ALT 16 U/L (14-59); AST 18 U/L (15-37); Albumin 4.1 g/dL (3.4-5.0); Alkaline Phosphatase 39 U/L (46-116); Anion Gap 15.1 mmol/L (3-11); BUN 13 mg/dL (7-18); Bilirubin, Total 0.31 mg/dL (0.2-1.0); CO2 18.9 mmol/L (21.0-32.0); CREATININE 0.9 mg/dL (0.55-1.02); Chloride 105 mmol/L (98-107); Estimated GFR 87.11 (mL/min/1.73m2); Glucose 115 mg/dL (74-106); Potassium 4.1 mmol/L (3.5-5.1); Sodium 139 mmol/L (136-145); Total Protein 7.8 g/dL (6.4-8.2)
[2023-11-03 13:51] LABS: Lyme Ab w Rflx to Lyme Confirm Negative (Negative)
[2023-11-05 00:53] LABS: Anaplasma phagocytophilum Negative (Negative); B. miyamotoi PCR Negative (Negative); Babesia divergens/MO-1 Negative (Negative); Babesia duncani Negative (Negative); Babesia microti Negative (Negative); Ehrlichia chaffeensis Negative (Negative); Ehrlichia ewingii/canis Negative (Negative); Ehrlichia muris eauclairensis Negative (Negative)
== END 2023-11-02 13:17 | disposition home or self-care (01) ==
PROVIDERS: Emergency Provider Physician Assistant; PCP Family Medicine
DX: A69.20 Lyme disease, unspecified (principal); M79.10 Myalgia, unspecified site; R51.9 Headache, unspecified; F17.210 Nicotine dependence, cigarettes, uncomplicated; F17.290 Nicotine dependence, other tobacco product, uncomplicated
CPT/HCPCS: 36415; 80053; 87040; 87798; 93005; 99284; 85025; 86618; 93010; 99283

== ENCOUNTER 2023-12-20 18:34 | Emergency (ER) | payer MEDICAID, SELFPAY ==
[2023-12-20 19:10] VITALS: BP 134/50; PULSE 63; RESP 16; TEMP 37; O2SAT 99
--- NOTE | 2023-12-20 22:21 | W.ED.GENAD ---
Discharge Plan Disposition Patient Disposition: Home Condition: Good Discharge Details Clinical Impression: Vomiting Primary Care Provider: Francisco Mayorga ED Provider: Julia Deshpande Home Meds and New Rx's Prescriptions: New ondansetron 4 mg tablet,disintegrating 4 mg PO Q8H PRNQty: 10 0RF dicyclomine 20 mg tablet 20 mg PO TID PRNQty: 20 0RF Continued clonazepam 0.5 mg tablet 0.5 mg PO DAILY Patient Comments: TAKE 1 TABLET BY MOUTH TWICE DAILY levonorgestrel-ethinyl estrad [Setlakin] 0.15 mg-30 mcg (91) tablets,dose pack,3 month See Rx Instructions .ROUTE .COMPLEX Qty: 91 3RF Dose Instruction: TAKE ONE TABLET BY MOUTH EVERY DAY Rx Instructions: TAKE ONE TABLET BY MOUTH EVERY DAY Discharge Instructions Instructions: Nausea and Vomiting, Adult ED Additional Instructions: Ondanestron up to every 8 hours as needed for vomiting. Tylenol and ibuprofen over the counter for pain; follow the directions on the bottle. Call your primary care doctor today to schedule an appointment for within the next 2 days to followup on your visit here. Return to the emergency department for new or worsening symptoms including fever, inability to keep down fluids, new/different/worse abdominal pain, or if you have any other concerns. Stand Alone Forms: Work Release Referrals: Francisco Mayorga MD [Primary Care Provider] - [facility] General Mode of arrival: ambulatory. Date/Time Provider Initiated Documentation: 12/20/23 19:18. Limitations to Documentation: no limitations. Information obtained by: patient. HPI Narrative: 33yo previously healthy female of continuous OCPs LMP 6 months ago presenting for nausea, vomiting, and diffuse abdominal cramping. Symptom started yesterday and have been persistent. Nonbloody non bilious. No diarrhea. Keeping down some fluids, not able to handle solid food. No fevers, chills, rash, or lightheadedness. Has also noted some brown vaginal spotting today, not requiring a pad a or tampon. Mild low back pain as well. She is otherwise in her usual state of health. Related Data Home Medications ?Medication ?Instructions ?Recorded ?Confirmed clonazepam 0.5 mg tablet 0.5 mg PO DAILY 10/21/21 12/21/23 levonorgestrel 0.15 mg-ethinyl See Rx Instructions .Route 02/16/23 12/21/23 estradiol 30 mcg tablets,3 mos .COMPLEX #91 tabs pack(91) (Setlakin) dicyclomine 20 mg tablet 20 mg PO TID PRN #20 tabs 12/21/23 ondansetron 4 mg disintegrating 4 mg PO Q8H PRN #10 tabs 12/21/23 tablet Previous Rx's ?Medication ?Instructions ?Recorded levonorgestrel 0.15 mg-ethinyl See Rx Instructions .Route 02/16/23 estradiol 30 mcg tablets,3 mos .COMPLEX #91 tabs pack(91) (Setlakin) dicyclomine 20 mg tablet 20 mg PO TID PRN #20 tabs 12/21/23 ondansetron 4 mg disintegrating 4 mg PO Q8H PRN #10 tabs 12/21/23 tablet Allergies Allergy/AdvReac Type Severity Reaction Status Date / Time No Known Allergies Allergy Verified 11/02/23 11:19 General Stated Complaint: Abd Prob SUDHA: 3 Review of Systems Narrative: see HPI Exam Narrative Exam Narrative: General: Alert, well appearing, well nourished, in no acute distress. Head: Normocephalic, atraumatic Neck: Trachea midline, ?Neck supple. ENT: ?MMM.? Cardiac: ?RRR, no murmurs appreciated Resp: No respiratory distress. CTAB. Abd: ?Soft, non-distended, nontender : ?No suprapubic tenderness. No CVA tenderness. Extremities: ?No deformities.? No peripheral edema. Neurologic: GCS 15. ? Moves all extremities freely against gravity Course Vital Signs Vital signs: Vital Signs Temperature 37.0 C 12/20/23 19:10 Pulse 63 12/20/23 19:10 Respiratory Rate 16 12/20/23 19:10 Blood Pressure 134/50 L 12/20/23 19:10 Pulse Oximetry 99 12/20/23 19:10 Temperature 37.0 C 12/20/23 19:10 Temperature Source Temporal Artery Scan 12/20/23 19:10 Pulse 63 12/20/23 19:10 Respiratory Rate 16 12/20/23 19:10 Blood Pressure 134/50 L 12/20/23 19:10 Pulse Oximetry 99 12/20/23 19:10 Oxygen Delivery Method Room Air 12/20/23 19:10 Oxygen Flow Rate 0 12/20/23 19:10 Pain Level 10 12/20/23 19:10 Medical Decision Making 33yo previously healthy female of continuous OCPs LMP 6 months ago presenting for nausea, vomiting, and diffuse abdominal cramping since yesterday. Associated slight brownish vaginal spotting and low back pain. Vital signs reassuring on arrival. Not septic. Soft non-tender abdomen. Not concerning for acute intraabdominal process, appendicitis, cholecystitis, cholangitits, bowel obstruction, etc. Would not get CT at this time. Will evaluate wtih labs, urine; give 1L IVFB and IV zofran. Labs reviewed as below, CBC reassuring with no leukocytosis or anemia, CMP with normal electrolytes, no actionable abnormalities, UA not infected, negative. Not concerning for pyelonephritis, unlikely ectopic with negative test though not impossible. With reassuring vital signs and minimal tenderness on exam, would not transfer for ultrasound. Most likely gastroenteritis. PO challenged and tolerated well. Tylenol and toradol for pain. On reassessment she remains well appearing with reassuring vital signs. Abdomen nontender; she continues to report diffuse crampy pain and low back pain. Will try bentyl. Advised close followup with PCP. Discharged home; discharge instructions and return precautions were reviewed with patient who verbalized understanding. All questions were answered and she is in full agreement with the plan. Lab Data Lab results reviewed: Yes I reviewed the patient's lab results. Labs: Laboratory Tests Range/Units 12/20/23 12/20/23 22:20 22:54 WBC (4.4-10.8) 10^3/uL 6.72 RBC (3.93-5.22) 10^6/uL 4.09 Hgb (11.2-15.7) g/dL 11.8 Hct (36.0-46.0) % 35.3 L MCV (80-95) fL 86 MCH (27.0-33.0) pg 28.9 MCHC (32.0-36.0) % 33.4 RDW (11.7-14.6) % 13.6 Plt Count (130-400) 10^3/uL 287 MPV (8.0-11.0) fL 9.4 Immature Gran % % 0.4 Neutrophils % % 59.6 Lymphocytes % % 31.7 Monocytes % % 7.3 Eosinophils % % 0.6 Basophils % % 0.4 Nucleated RBC % (0.0-0.3) % 0.0 Absolute Neutrophils (1.2-6.7) 10^3/uL 4.00 Absolute Lymphocytes (1.2-3.4) 10^3/uL 2.13 Absolute Monocytes (0.1-0.8) 10^3/uL 0.49 Absolute Eosinophils (0.0-0.7) 10^3/uL 0.04 Absolute Basophils (0.0-0.2) 10^3/uL 0.03 Sodium (136-145) mmol/L 139 Potassium (3.5-5.1) mmol/L 3.8 Chloride (98-107) mmol/L 104 Carbon Dioxide (21.0-32.0) mmol/L 24.8 Anion Gap (3-11) mmol/L 10.2 BUN (7-18) mg/dL 10 Creatinine (0.55-1.02) mg/dL 0.7 Est GFR (CKD-EPI 2020) (mL/min/1.73m2) 117.77 Glucose (74-106) mg/dL 98 Calcium (8.5-10.1) mg/dL 9.1 Total Bilirubin (0.2-1.0) mg/dL 0.37 AST (15-37) U/L 13 L ALT (14-59) U/L 11 L Alkaline Phosphatase (46-116) U/L 39 L Total Protein (6.4-8.2) g/dL 7.8 Albumin (3.4-5.0) g/dL 4.0 Urine Color (Yellow) Yellow Urine Clarity (Clear) Clear Urine pH (5-8) 5.5 Ur Specific [place] (1.005-1.025) >= 1.030 H Urine Protein (Neg-Trace) mg/dL Trace Urine Ketones (Negative) mg/dL Trace H Urine Blood (Negative) Large H Urine Nitrite (Negative) Negative Urine Bilirubin (Negative) Negative Urine Urobilinogen (Up to 0.2) mg/dL 0.2 Ur Leukocyte Esterase (Negative) Negative Urine RBC (0-2) HPF 5-10 H Urine WBC (0-5) HPF Negative Ur Epithelial Cells (Negative) HPF Few Urine Crystals (Negative) HPF Negative Urine Bacteria (Negative) HPF Rare Urine Casts (Negative) LPF Negative Urine Mucus (Negative) Heavy Ur Culture Indicated? No Urine Glucose (Negative) mg/dL Negative Quality:SDOH Health Related Social Needs: No Data to Display PFSH All Active Problems (Updated 12/20/23 @ 23:24 by Julia Deshpande MD) Vomiting (Acute) Liver contusion (Acute) Ganglion cyst of right foot (Acute) Exostosis (Acute) Fibroma (Acute) Pain in right foot (Acute) Medical History Dysuria Vaginal irritation Low TSH level LGSIL (low grade squamous intraepithelial dysplasia) 04/15/2021 screening Pap LGSIL. 05/01/2021. Normal appearing colposcopy. No biopsies taken. Recommend repeat pap PP Marijuana smoker History of intravenous drug use in remission History of opioid abuse Urinary frequency Hepatitis C Optic neuritis UTI (urinary tract infection) Surgical History H/O umbilical hernia repair S/P hernia repair Social History Smoking/Tobacco Use Status: Current every day Tobacco Type: cigarettes and e-cigarettes Smoking risk assessment performed?: Yes Alcohol Intake: current Alcohol Intake frequency: holidays/special occasions only Drug use: Daily Substance use type: does not use, former substance user and marijuana Details: clean/sober for 7 years Reports about 5 cigarettes a week since giving . Housing: other Do you feel safe at home: Yes Do you feel safe in your relationship?: Yes Female Reproductive History Menstrual control method: pills History History 4 Para 3 Hx # Term Pregnancies 3 Multiple births 0 Hx # Pregnancies 0 Ectopic pregnancies 0 AB induced 1 Hx Number of Living Children 3 AB spontaneous 0 Past Pregnancies Del. Date GA/Weeks # Preg Succ Route Wgt Sex Labor Lgth Anesthesia Location Prov Complic Unknown 38 No Yes vaginal Female 11hrs 19oz monik Quiñonez CNM 04/26/11 40 No vaginal 3345.244 g Male 36 hrs [facility] - [facility] 09/13/14 41 No vaginal 3600.389 g Female 12 hrs [facility] - MD service Delivery Date: Last Updated by: JUAREZ Hart; Delivery Date: 04/26/11 Last Updated by: Susan Richardson IOL for PROM at term, 36 hrs labor w/epidural, GBS negative. Nml , baby w/GBS meningitis at 3 weeks of age, is ok now. Ronald Delivery Date: 09/13/14 Last Updated by: Susan Richardson IOL for postdates; epidural. GBS neg. Nml Geni
[2023-12-20] MEDS: Ondansetron 4 MG/2 ML VIAL IVP (22:55)
[2023-12-20] MEDS: Normal Saline 1,000 ML 1000 ML IV (22:55)
[2023-12-20 22:58] LABS: Abs Immature Grans 0.03 10^3/uL (0.0-0.06); Absolute Basophil Count 0.03 10^3/uL (0.0-0.2); Absolute Eosinophil Count 0.04 10^3/uL (0.0-0.7); Absolute Lymphocyte Count 2.13 10^3/uL (1.2-3.4); Absolute Monocyte Count 0.49 10^3/uL (0.1-0.8); Basophils % 0.4 %; Eosinophils % 0.6 %; HCT 35.3 % (36.0-46.0); HGB 11.8 g/dL (11.2-15.7); Immature Grans % 0.4 %; Lymphocytes % 31.7 %; MCH 28.9 pg (27.0-33.0); MCHC 33.4 % (32.0-36.0); MCV 86 fL (80-95); MPV 9.4 fL (8.0-11.0); Monocytes % 7.3 %; Neutrophils % 59.6 %; Platelet Count 287 10^3/uL (130-400); RBC 4.09 10^6/uL (3.93-5.22); RDW 13.6 % (11.7-14.6); RDW-SD 42.9 fL; WBC 6.72 10^3/uL (4.4-10.8)
[2023-12-20 22:59] LABS: Bilirubin Negative (Negative); Blood Large (Negative); Clarity Clear (Clear); Glucose Negative (Negative); Ketones Trace mg/dL (Negative); Leukocyte Esterase Negative (Negative); Nitrite Negative (Negative); Specific Gravity >= 1.030 (1.005-1.025); Urobilinogen 0.2 mg/dL (Up to 0.2); pH 5.5 (5-8)
[2023-12-20 23:09] LABS: Bacteria Rare HPF (Negative); C & S Indicated? No; Casts Negative LPF (Negative); Crystals Negative HPF (Negative); Epithelial Cells Few HPF (Negative); Mucus Heavy (Negative); WBC Negative HPF (0-5)
[2023-12-20 23:13] LABS: ALT 11 U/L (14-59); AST 13 U/L (15-37); Alkaline Phosphatase 39 U/L (46-116); Anion Gap 10.2 mmol/L (3-11); BUN 10 mg/dL (7-18); Bilirubin, Total 0.37 mg/dL (0.2-1.0); CO2 24.8 mmol/L (21.0-32.0); CREATININE 0.7 mg/dL (0.55-1.02); Calcium 9.1 mg/dL (8.5-10.1); Chloride 104 mmol/L (98-107); Estimated GFR 117.77 (mL/min/1.73m2); Glucose 98 mg/dL (74-106); Potassium 3.8 mmol/L (3.5-5.1); Sodium 139 mmol/L (136-145); Total Protein 7.8 g/dL (6.4-8.2)
[2023-12-21] MEDS: Acetaminophen 500 MG TAB 1000 MG PO (00:08)
[2023-12-21] MEDS: Ketorolac 15 MG/ML VIAL IVP (00:09)
[2023-12-21] MEDS: Dicyclomine 20 MG TAB PO (01:09)
== END 2023-12-21 01:34 | disposition home or self-care (01) ==
PROVIDERS: Emergency Provider Student in an Organized Health Care Education/Training Program; PCP Family Medicine
DX: R11.2 Nausea with vomiting, unspecified (principal); M54.9 Dorsalgia, unspecified; R10.9 Unspecified abdominal pain; Z79.3 Long term (current) use of hormonal contraceptives
CPT/HCPCS: 80053; 81025; 96361; 96374; 96375; 99284; 81003; 81015; 85025; J1885; J2405

== ENCOUNTER 2024-07-04 22:06 | Outpatient (REF) | payer SELFPAY | END 2024-07-04 22:07 | disposition home or self-care (01) | LOC: NCHCN 22:06 | PROVIDERS: PCP Family Medicine; Visit Provider Physician Assistant | DX: N39.0 Urinary tract infection, site not specified (principal); R30.0 Dysuria | CPT/HCPCS: 87077; 87086; 87186; 87480; 87510; 87660 ==

== ENCOUNTER 2024-08-30 17:18 | Outpatient (REF) | payer SELFPAY | END 2024-08-30 17:19 | disposition home or self-care (01) | LOC: LBN 17:18 | PROVIDERS: PCP Family Medicine; Visit Provider Nurse Practitioner Family | DX: N30.01 Acute cystitis with hematuria (principal) | CPT/HCPCS: 87077; 87086; 87186 ==

== ENCOUNTER 2024-09-01 07:53 | Emergency (ER) | payer SELFPAY ==
[2024-09-01 07:53] VITALS: BP 137/52; PULSE 76; RESP 15; TEMP 36.8; O2SAT 99
[2024-09-01 07:58] VITALS: BP 137/52; PULSE 76; RESP 15; TEMP 36.8; O2SAT 99
--- NOTE | 2024-09-01 08:10 | ED.GENADUL_ITS ---
Discharge Plan Disposition Patient Disposition: Home Condition: Stable Discharge Details Clinical Impression: Calculus of right kidney Primary Care Provider: Francisco Mayorga ED Provider: Rebecca Medina Home Meds and New Rx's Prescriptions: New ketorolac 10 mg tablet 10 mg PO TID PRN (Reason: pain) 5 Days Qty: 15 0RF Rx Instructions: Take 1 tablet by mouth up to 3 times daily as needed for the next 5 days ondansetron 4 mg tablet,disintegrating 4 mg PO Q8H PRN (Reason: nausea and vomiting) 4 Days Qty: 9 0RF Rx Instructions: Take 1 tablet up to 3 times daily as needed for nausea and vomiting 20 minutes prior to meals. No Action clonazepam 0.5 mg tablet 0.5 mg PO DAILY Patient Comments: TAKE 1 TABLET BY MOUTH TWICE DAILY nitrofurantoin monohyd/m-cryst 100 mg capsule 100 mg PO BID Patient Comments: TAKE ONE CAPSULE BY MOUTH EVERY 12 HOURS FOR 5 DAYS- Started Wednesday 08/30 Discharge Instructions Instructions: Kidney Stone, Adult ED, Flank Pain ED Additional Instructions: The CT today shows that you have a kidney stone on the right. It is approximately 2 mm. You should be able to pass this on your own. However if you continue to have worsening pain, fever, vomiting please return to the ER. You may continue to take the antibiotic as previously prescribed. No evidence of urinary tract infection today. Please follow-up with urology in the next 5 to 7 days. Take the medications as prescribed. You can also take Tylenol in addition to the Toradol. Increase oral fluids Follow up with primary care provider in 3-5 days. Return to ED sooner if any worsening or concerns. Thank you for allowing us to care for you today. Referrals: Francisco Mayorga MD [Primary Care Provider] - Ginny Platt DNP [NURSE PRACTITIONER] - 1 week Discharge Data Discharge Date/Time-TO BE ENTERED AT DEPARTURE: 09/01/24 10:06 HPI General Mode of arrival: ambulatory . Date/Time Provider Initiated Documentation: 09/01/24 07:56 . Limitations to Documentation: no limitations . Information obtained by: patient, RN notes reviewed and old records reviewed . HPI Narrative: 34-year-old female presents to the ER with a chief complaint of recent urinary tract infection diagnosis at urgent care. Patient reports that she was started on an antibiotic Macrobid on Thursday which she has been taking as prescribed. She reports worsening symptoms worsening lower back pain, neck pain nausea vomiting. Did not take any Tylenol or ibuprofen this morning. Has a past medical history of hepatitis C, prolapsed bladder, frequent UTIs Related Data Home Medications ?Medication ?Instructions ?Recorded ?Confirmed clonazepam 0.5 mg tablet 0.5 mg PO DAILY 10/21/21 09/01/24 ketorolac 10 mg tablet 10 mg PO TID PRN pain 5 days #15 09/01/24 tabs nitrofurantoin 100 mg PO BID 09/01/24 09/01/24 monohydrate/macrocrystals 100 mg capsule ondansetron 4 mg disintegrating 4 mg PO Q8H PRN nausea and 09/01/24 tablet vomiting 4 days #9 tabs Previous Rx's ?Medication ?Instructions ?Recorded ketorolac 10 mg tablet 10 mg PO TID PRN pain 5 days #15 09/01/24 tabs ondansetron 4 mg disintegrating 4 mg PO Q8H PRN nausea and 09/01/24 tablet vomiting 4 days #9 tabs Allergies Allergy/AdvReac Type Severity Reaction Status Date / Time No Known Allergies Allergy Verified 09/01/24 07:59 General Stated Complaint: FlankPain SUDHA: 3 Review of Systems All systems reviewed & are unremarkable except as noted in HPI and below ENT Ears, Nose, Mouth, and Throat: Reports neck pain Gastrointestinal Gastrointestinal: Reports nausea and Reports vomiting Genitourinary Genitourinary: Reports as per HPI, Reports dysuria and Reports flank pain Musculoskeletal Musculoskeletal: Reports as per HPI, Reports back pain and Reports neck pain Exam Narrative Exam Narrative: Constitutional: Alert and oriented x3. Appears stated age. Normal body habitus. Head: Normocephalic, no trauma. Eyes: Pupils PERRL, Red reflex noted, EOM's intact. Eyelids symmetrical without lesions, discharge, or swelling. ENT: Bilateral TM's WNL, External ear normal to inspection, no mastoid TTP, swelling, or erythema, Nasal turbinates WNL, no nasal discharge. Normal dentition, Posterior pharynx WNL, no exudate. Chest: RRR, Normal S1, S2, distal pulses intact. Resp: Lungs clear to auscultation bilaterally, no wheezes, rales, or rhonchi. Abdomen: Soft, non-distended, Normoactive bowel sounds all 4 quads. Musculoskeletal: Normal gait, Moves all 4 extremities without difficulty. Skin: No suspicious rashes or lesions. Capillary refill less than 2 sec. Neurologic: Cranial nerves II-XII intact. Alert and oriented x 3. Motor: No deficits noted. Sensory: Intact bilaterally all 4 extremities. Hematologic/Lymphatic: No ecchymosis, no lymphadenopathy. Course Vital Signs Vital signs: Vital Signs Temperature 36.8 C 09/01/24 07:53 Pulse 76 09/01/24 07:53 Respiratory Rate 15 09/01/24 07:53 Blood Pressure 137/52 L 09/01/24 07:53 Pulse Oximetry 99 09/01/24 07:53 Temperature 36.8 C 09/01/24 07:58 Temperature Source Temporal Artery Scan 09/01/24 07:58 Pulse 76 09/01/24 07:58 Respiratory Rate 15 09/01/24 07:58 Blood Pressure 137/52 L 09/01/24 07:58 Blood Pressure Position Sitting 09/01/24 07:58 Pulse Oximetry 99 09/01/24 07:58 Oxygen Delivery Method Room Air 09/01/24 07:58 Oxygen Flow Rate 0 09/01/24 07:58 Pain Level 7 09/01/24 07:58 Comment 8 in the flanks 09/01/24 07:58 Medical Decision Making 34-year-old female presents to the ER with a chief complaint of recent urinary tract infection diagnosis at urgent care. Patient reports that she was started on an antibiotic Macrobid on Thursday which she has been taking as prescribed. She reports worsening symptoms worsening lower back pain, neck pain nausea vomiting. Did not take any Tylenol or ibuprofen this morning. Has a past medical history of hepatitis C, prolapsed bladder, frequent UTIs Workup ordered including urinalysis, urine , CBC CMP CT abdomen pelvis without contrast, Zofran and Toradol. Differential diagnose include not limited to pyelonephritis, kidney stone, worsening urinary tract infection, viral infection. Informed by licensed staff [facility] that IV blew, will order PO meds. CT shows a 2 mm kidney stone in the right kidney and a 1 mm stone in the ureter. Please see official report. Urinalysis shows no evidence of a urinary tract infection. I will discuss results with patient and encouraged her to continue taking the Macrobid as previously prescribed. Will send home with Toradol. Follow-up with urology. Discussed results follow-up care and strict return instructions with patient who verbalized understanding. Patient remained hemodynamically stable throughout the remainder of her stay. This text was generated using [employer] system, please disregard any oddities of phrase or misspellings. Imaging Data Radiologic Study: Imaging: CT Scan Radiologist's impression: COMPARISON: CT CT ABDOMEN PELVIS W from 06/15/[address] ABDOMEN PELVIS W from 03/22/2023 FINDINGS: ABDOMEN: Lung Bases: Normal where visualized. Liver: Normal density. No measurable mass. Gallbladder and biliary tract: No radiodense calculus or biliary ductal dilation. Pancreas: Normal density, no abnormal calcifications or inflammatory process. Spleen: Normal. Kidneys: Normal size, contour and axis.There is a 2 mm calcification in the right kidney. (Series 2, image 186). There is a tiny 1 mm calcification which appears to be adjacent to the distal right ureter (series 2, image 335). There is no hydronephrosis of the right ureter. There is no obstructive uropathy on the left. Adrenal glands: No mass is seen. Lymph nodes: Within normal limits. Abdominal Aorta: Abdominal portion non-dilated. PELVIS: Bladder:Symmetric distention, no gross wall thickening. Bowel: No obstruction or bowel wall thickening. The appendix measures 7 mm. No Misti appendiceal inflammatory changes are seen. No appendicoliths is present. Peritoneal cavity: No ascites, collection or mesenteric inflammatory response. No free air. Reproductive organs: Unremarkable as visualized. Bones: Within normal limits. Soft Tissues: Within normal limits. IMPRESSION: 1. Right nephrolithiasis. No hydronephrosis. 2. There is a tiny 1 mm calcification which appears to be adjacent to the distal right ureter. This may be a nonobstructing distal right ureteral stone however. 3. Appendix measuring 7 mm. No Misti appendiceal inflammatory changes or appendicoliths is seen. Please correlate with the patient's physical exam. Follow-up as clinically appropriate. Lab Data Lab results reviewed: Yes I reviewed the patient's lab results. Labs: Laboratory Tests Range/Units 09/01/24 09/01/24 08:13 08:19 WBC (4.4-10.8) 10^3/uL 7.55 RBC (3.93-5.22) 10^6/uL 4.36 Hgb (11.2-15.7) g/dL 12.8 Hct (36.0-46.0) % 38.2 MCV (80-95) fL 88 MCH (27.0-33.0) pg 29.4 MCHC (32.0-36.0) % 33.5 RDW (11.7-14.6) % 13.4 Plt Count (130-400) 10^3/uL 290 MPV (8.0-11.0) fL 9.1 Immature Gran % % 0.3 Neutrophils % % 70.3 Lymphocytes % % 19.9 Monocytes % % 7.4 Eosinophils % % 1.3 Basophils % % 0.8 Nucleated RBC % (0.0-0.3) % 0.0 Absolute Neutrophils (1.2-6.7) 10^3/uL 5.31 Absolute Lymphocytes (1.2-3.4) 10^3/uL 1.50 Absolute Monocytes (0.1-0.8) 10^3/uL 0.56 Absolute Eosinophils (0.0-0.7) 10^3/uL 0.10 Absolute Basophils (0.0-0.2) 10^3/uL 0.06 Sodium (136-145) mmol/L 142 Potassium (3.5-5.1) mmol/L 3.9 Chloride (98-107) mmol/L 103 Carbon Dioxide (21.0-32.0) mmol/L 29.1 Anion Gap (3-11) mmol/L 9.9 BUN (7-18) mg/dL 10 Creatinine (0.55-1.02) mg/dL 0.8 Est GFR (CKD-EPI 2020) (mL/min/1.73m2) 99.71 Glucose (74-106) mg/dL 91 Calcium (8.5-10.1) mg/dL 9.3 Total Bilirubin (0.2-1.0) mg/dL 0.4 AST (15-37) U/L 16 ALT (14-59) U/L 18 Alkaline Phosphatase (46-116) U/L 58 Total Protein (6.4-8.2) g/dL 8.1 Albumin (3.4-5.0) g/dL 4.5 Urine Color (Yellow) Yellow Urine Clarity (Clear) Clear Urine pH (5-8) 7.5 Ur Specific Seth (1.005-1.025) 1.015 Urine Protein (Neg-Trace) mg/dL Trace Urine Ketones (Negative) mg/dL Negative Urine Blood (Negative) Small H Urine Nitrite (Negative) Negative Urine Bilirubin (Negative) Negative Urine Urobilinogen (Up to 0.2) mg/dL 0.2 Ur Leukocyte Esterase (Negative) Negative Urine RBC (0-2) HPF 3-5 H Urine WBC (0-5) HPF 3-5 Ur Epithelial Cells (Negative) HPF Moderate Urine Crystals (Negative) HPF Negative Urine Bacteria (Negative) HPF Few Urine Casts (Negative) LPF 0-2 Hyaline Urine Mucus (Negative) Trace Urine Other (Negative) Rare Renal Ur Culture Indicated? No Urine Glucose (Negative) mg/dL Negative Quality:SDOH Health Related Social Needs: No Data to Display PFSH All Active Problems Calculus of right kidney (Acute) Liver contusion (Acute) Ganglion cyst of right foot (Acute) Exostosis (Acute) Fibroma (Acute) Pain in right foot (Acute) Medical History Dysuria Vaginal irritation Low TSH level LGSIL (low grade squamous intraepithelial dysplasia) 04/15/2021 screening Pap LGSIL. 05/01/2021. Normal appearing colposcopy. No biopsies taken. Recommend repeat pap PP Marijuana smoker History of intravenous drug use in remission History of opioid abuse Urinary frequency Hepatitis C Optic neuritis UTI (urinary tract infection) Surgical History H/O umbilical hernia repair S/P hernia repair Social History Smoking/Tobacco Use Status: Current every day Tobacco Type: cigarettes and e- cigarettes Smoking risk assessment performed?: Yes Alcohol Intake: current Alcohol Intake frequency: holidays/special occasions only Drug use: Daily Substance use type: does not use, former substance user and marijuana Details: clean/sober for 7 years Reports about 5 cigarettes a week since giving . Housing: other Do you feel safe at home: Yes Do you feel safe in your relationship?: Yes Female Reproductive History Menstrual control method: pills History History 4 Para 3 Hx # Term Pregnancies 3 Multiple births 0 Hx # Pregnancies 0 Ectopic pregnancies 0 AB induced 1 Hx Number of Living Children 3 AB spontaneous 0 Past Pregnancies Del. Date GA/Weeks # Preg Succ Route Wgt Sex Labor Lgth Anesth esia Location Prov Complic Unknown 38 No Yes vaginal Female 11hrs 19oz [facility] [place] MunozLalonella, CHRIS 04/26/11 40 No vaginal 3345.244 g Male 36 hrs [facility] H - Radha 09/13/14 41 No vaginal 3600.389 g Female 12 hrs [facility] - [facility] Delivery Date: Last Updated by: Hermelinda Wilkinson, JUAREZ Peguero; Delivery Date: 04/26/11 Last Updated by: Susan Richardson IOL for PROM at term, 36 hrs labor w/epidural, GBS negative. Nml , baby w/GBS meningitis at 3 weeks of age, is ok now. Ronald Delivery Date: 09/13/14 Last Updated by: Susan Richardson IOL for postdates; epidural. GBS neg. Nml Geederrick KINCAID Have you Been Recently Intoxicated or Drunk Within the Last 30 days?: No Have you Ever Experienced Previous Episodes of Alcohol Withdrawal?: No Have you ever Experienced Withdrawal Seizures?: No Have you ever Experienced Delirium Tremens(DT)s?: No Have you ever undergone Alcohol Rehabilitation Treatment (i.e, inpt ot outpatient treatment programs)?: No Have you ever Experienced Blackouts?: No Have you ever Combined Alcohol with other Downers within the last 90 days?: No Have you ever Combined Alcohol with any other Substance of Abuse during the last 90 days?: No Result: 0
[2024-09-01] MEDS: Ketorolac 10 MG TAB PO (08:30)
[2024-09-01] MEDS: Ondansetron O.D.T. 4 MG TABEF PO (08:30)
[2024-09-01 08:39] LABS: Abs Immature Grans 0.02 10^3/uL (0.0-0.06); Absolute Basophil Count 0.06 10^3/uL (0.0-0.2); Absolute Monocyte Count 0.56 10^3/uL (0.1-0.8); Absolute Neutrophil Count 5.31 10^3/uL (1.2-6.7); Basophils % 0.8 %; Eosinophils % 1.3 %; HCT 38.2 % (36.0-46.0); HGB 12.8 g/dL (11.2-15.7); Immature Grans % 0.3 %; Lymphocytes % 19.9 %; MCH 29.4 pg (27.0-33.0); MCHC 33.5 % (32.0-36.0); MCV 88 fL (80-95); MPV 9.1 fL (8.0-11.0); Monocytes % 7.4 %; Neutrophils % 70.3 %; Platelet Count 290 10^3/uL (130-400); RBC 4.36 10^6/uL (3.93-5.22); RDW 13.4 % (11.7-14.6); WBC 7.55 10^3/uL (4.4-10.8)
--- NOTE | 2024-09-01 08:54 | DI.CT_ITS ---
Exam(s) CT RENAL COLIC WO EXAM: CT RENAL COLIC WO CLINICAL HISTORY: Flank pain, Vomiting. TECHNIQUE: Imaging Protocol: Axial computed tomography images with coronal and sagittal reformatted images were created and reviewed. COMPARISON: CT CT ABDOMEN PELVIS W from 06/15/[address] ABDOMEN PELVIS W from 03/22/2023 FINDINGS: ABDOMEN: Lung Bases: Normal where visualized. Liver: Normal density. No measurable mass. Gallbladder and biliary tract: No radiodense calculus or biliary ductal dilation. Pancreas: Normal density, no abnormal calcifications or inflammatory process. Spleen: Normal. Kidneys: Normal size, contour and axis.There is a 2 mm calcification in the right kidney. (Series 2, image 186). There is a tiny 1 mm calcification which appears to be adjacent to the distal right ure ter (series 2, image 335). There is no hydronephrosis of the right ureter. There is no obstructive uropathy on the left. Adrenal glands: No mass is seen. Lymph nodes: Within normal limits. Abdominal Aorta: Abdominal portion non-dilated. PELVIS: Bladder:Symmetric distention, no gross wall thickening. Bowel: No obstruction or bowel wall thickening. The appendix measures 7 mm. No Misti appendiceal infl ammatory changes are seen. No appendicoliths is present. Peritoneal cavity: No ascites, collection or mesenteric inflammatory response. No free air. Reproductive organs: Unremarkable as visualized. Bones: Within normal limits. Soft Tissues: Within normal limits. IMPRESSION: 1. Right nephrolithiasis. No hydronephrosis. 2. There is a tiny 1 mm calcification which appears to be adjacent to the distal right ureter. This may be a nonobstructing distal right ureteral stone however. 3. Appendix measuring 7 mm. No Misti appendiceal inflammatory changes or appendicoliths is seen. Ple ase correlate with the patient's physical exam. Follow-up as clinically appropriate. RADIATION DOSE DELIVERED: 392.17mGy.cm Total DLP DATA REPOSITORY: All CT scans at this facility are submitted to the National Radiology Data Registry (NRDR) Dose Index Registry (DIR) with the [employer] (ACR). RADIATION OPTIMIZATION: All CT scans at this facility use at least one of these dose optimization te chniques: automated exposure control; mA and/or kV adjustment per patient size (includes targeted exa ms where dose is matched to clinical indication); or iterative reconstruction.
[2024-09-01 08:55] LABS: Bilirubin Negative (Negative); Blood Small (Negative); Clarity Clear (Clear); Glucose Negative (Negative); Ketones Negative (Negative); Leukocyte Esterase Negative (Negative); Nitrite Negative (Negative); Specific Gravity 1.015 (1.005-1.025); Urobilinogen 0.2 mg/dL (Up to 0.2); pH 7.5 (5-8)
[2024-09-01 09:08] LABS: ALT 18 U/L (14-59); AST 16 U/L (15-37); Albumin 4.5 g/dL (3.4-5.0); Alkaline Phosphatase 58 U/L (46-116); Anion Gap 9.9 mmol/L (3-11); BUN 10 mg/dL (7-18); Bilirubin, Total 0.4 mg/dL (0.2-1.0); CO2 29.1 mmol/L (21.0-32.0); CREATININE 0.8 mg/dL (0.55-1.02); Calcium 9.3 mg/dL (8.5-10.1); Chloride 103 mmol/L (98-107); Estimated GFR 99.71 (mL/min/1.73m2); Glucose 91 mg/dL (74-106); Potassium 3.9 mmol/L (3.5-5.1); Sodium 142 mmol/L (136-145); Total Protein 8.1 g/dL (6.4-8.2)
[2024-09-01 09:08] LABS: Bacteria Few HPF (Negative); Crystals Negative HPF (Negative); Epithelial Cells Moderate HPF (Negative); Mucus Trace (Negative); Other Cells Rare Renal (Negative)
[2024-09-01 09:09] LABS: C & S Indicated? No; Casts 0-2 Hyaline LPF (Negative)
[2024-09-01 09:56] VITALS: BP 132/66; PULSE 64; RESP 15; O2SAT 98
== END 2024-09-01 10:06 | disposition home or self-care (01) ==
PROVIDERS: Emergency Provider Registered Nurse Emergency; PCP Family Medicine
DX: N20.0 Calculus of kidney (principal); F17.210 Nicotine dependence, cigarettes, uncomplicated; F17.290 Nicotine dependence, other tobacco product, uncomplicated
CPT/HCPCS: 80053; 81025; 99283; 74176; 81003; 81015; 85025

== ENCOUNTER 2024-10-08 13:19 | Emergency (ER) | payer SELFPAY ==
[2024-10-08 13:21] VITALS: BP 123/83; PULSE 76; RESP 18; TEMP 36.3; O2SAT 98
[2024-10-08 13:36] LABS: Bilirubin Negative (Negative); Blood Trace-intact (Negative); Clarity Sl Cloudy (Clear); Glucose Negative (Negative); Ketones Trace mg/dL (Negative); Leukocyte Esterase Large (Negative); Nitrite Negative (Negative); pH 8.5 (5-8)
--- NOTE | 2024-10-08 13:41 | ED.GENADUL_ITS ---
Discharge Plan Disposition Patient Disposition: Home Condition: Stable Discharge Details Clinical Impression: UTI (urinary tract infection) Primary Care Provider: Francisco Mayorga ED Provider: Rebecca Medina Home Meds and New Rx's Prescriptions: New phenazopyridine [Pyridium] 100 mg tablet 100 mg PO TID PRNQty: 6 0RF cephalexin 500 mg tablet 500 mg PO BID 10 Days Qty: 20 0RF No Action clonazepam 0.5 mg tablet 0.5 mg PO DAILY Patient Comments: TAKE 1 TABLET BY MOUTH TWICE DAILY ketorolac 10 mg tablet 10 mg PO TID PRN Patient Comments: TAKE ONE TABLET BY MOUTH UP TO THREE TIMES A DAY NEEDED FOR PAIN FOR THE NEXT 5 DAYS ondansetron 4 mg tablet,disintegrating 4 mg PO TID PRN Patient Comments: TAKE 1 TABLET BY MOUTH UP TO 3 TIMES DAILY NEEDED FOR NAUSEA AND VOMITING 20 MINUTES PRIOR TO MEALS. Discharge Instructions Instructions: Urinary Tract Infection, Adult ED Additional Instructions: Urinalysis does show evidence of a UTI. You are given the first dose of antibiotic in the emergency department. Please take antibiotic with yogurt or a probiotic as directed for the next 10 days. Please take all of it even when you are feeling better. Please take the Pyridium as directed this will turn your urine bright orange. Follow up with primary care provider in 3-5 days. Return to ED sooner if any worsening pain, fever problems urinating despite taking the antibiotics, vomiting or concerns. You for allowing us to care for you today. Referrals: Francisco Mayorga MD [Primary Care Provider] - 5 days HPI General Mode of arrival: ambulatory . Date/Time Provider Initiated Documentation: 10/08/24 13:21 . Limitations to Documentation: no limitations . Information obtained by: patient, RN notes reviewed and old records reviewed . HPI Narrative: 34-year-old female presents to the ER with chief complaint of dysuria urinary frequency and hesitancy for the last couple of weeks. Patient was seen here in the emergency department approximately a month ago diagnosed with 2 mm smaller kidney stones. Patient has not followed up for this due to financial reasons. She does report some vomiting over the last week last episode was yesterday. None today. No fever. She denies any vaginal discharge or bleeding. She does endorse some right lower back pain. Related Data Home Medications ?Medication ?Instructions ?Recorded ?Confirmed clonazepam 0.5 mg tablet 0.5 mg PO DAILY 10/21/21 10/08/24 cephalexin 500 mg tablet 500 mg PO BID 10 days #20 tabs 10/08/24 ketorolac 10 mg tablet 10 mg PO TID PRN 10/08/24 10/08/24 ondansetron 4 mg disintegrating 4 mg PO TID PRN 10/08/24 10/08/24 tablet phenazopyridine 100 mg tablet 100 mg PO TID PRN 6 doses #6 tabs 10/08/24 (Pyridium) Previous Rx's ?Medication ?Instructions ?Recorded cephalexin 500 mg tablet 500 mg PO BID 10 days #20 tabs 10/08/24 phenazopyridine 100 mg tablet 100 mg PO TID PRN 6 doses #6 tabs 10/08/24 (Pyridium) Allergies Allergy/AdvReac Type Severity Reaction Status Date / Time No Known Allergies Allergy Verified 09/01/24 07:59 General Stated Complaint: Urinary SUDHA: 3 Review of Systems All systems reviewed & are unremarkable except as noted in HPI and below Genitourinary Genitourinary: Reports as per HPI, Reports dysuria, Reports urinary hesitancy and Reports urinary urgency Exam Narrative Exam Narrative: Constitutional: Alert and oriented x3. Appears stated age. Normal body habitus. Head: Normocephalic, no trauma. Eyes: Pupils PERRL, Red reflex noted, EOM's intact. Eyelids symmetrical without lesions, discharge, or swelling. Chest: RRR, Normal S1, S2, distal pulses intact. Resp: Lungs clear to auscultation bilaterally, no wheezes, rales, or rhonchi. Musculoskeletal: Normal gait, Moves all 4 extremities without difficulty. Skin: No suspicious rashes or lesions. Capillary refill less than 2 sec. Course Vital Signs Vital signs: Vital Signs Temperature 36.3 C L 10/08/24 13:21 Pulse 76 10/08/24 13:21 Respiratory Rate 18 10/08/24 13:21 Blood Pressure 123/83 10/08/24 13:21 Pulse Oximetry 98 10/08/24 13:21 Temperature 36.3 C L 10/08/24 13:21 Temperature Source Oral 10/08/24 13:21 Pulse 76 10/08/24 13:21 Respiratory Rate 18 10/08/24 13:21 Blood Pressure 123/83 10/08/24 13:21 Blood Pressure Position Sitting 10/08/24 13:21 Pulse Oximetry 98 10/08/24 13:21 Oxygen Delivery Method Room Air 10/08/24 13:21 Oxygen Flow Rate 0 10/08/24 13:21 Pain Level 8 10/08/24 13:21 Lab/Test Results Lab/Test Results: Laboratory Tests Range/Units 10/08/24 13:22 Urine Color (Yellow) Yellow Urine Clarity (Clear) Sl Cloudy Urine pH (5-8) 8.5 H Ur Specific [place] (1.005-1.025) 1.020 Urine Protein (Neg-Trace) mg/dL 100 H Urine Ketones (Negative) mg/dL Trace H Urine Blood (Negative) Trace-intact H Urine Nitrite (Negative) Negative Urine Bilirubin (Negative) Negative Urine Urobilinogen (Up to 0.2) mg/dL 1.0 H Ur Leukocyte Esterase (Negative) Large H Urine Glucose (Negative) mg/dL Negative Medical Decision Making 34-year-old female presents to the ER with chief complaint of dysuria urinary frequency and hesitancy for the last couple of weeks. Patient was seen here in the emergency department approximately a month ago diagnosed with 2 mm smaller kidney stones. Patient has not followed up for this due to financial reasons. She does report some vomiting over the last week last episode was yesterday. None today. No fever. She denies any vaginal discharge or bleeding. She does endorse some right lower back pain. Urinalysis shows trace ketones, trace blood large leukocytes, 3-5 RBCs 10-20 WBCs. Few bacteria culture is pending at this time. Will treat with cephalexin and pyridium, will give first dose here in the department. This text was generated using [employer]iateation system, please disregard any oddities of phrase or misspellings. Medical Records Medical records reviewed: Yes I reviewed the patient's medical records. Lab Data Lab results reviewed: Yes I reviewed the patient's lab results. Labs: 10/08/24 13:22 Urine - Reflex from Ua Urine Culture - Pending Laboratory Tests Range/Units 10/08/24 13:22 Urine Color (Yellow) Yellow Urine Clarity (Clear) Sl Cloudy Urine pH (5-8) 8.5 H Ur Specific [place] (1.005-1.025) 1.020 Urine Protein (Neg-Trace) mg/dL 100 H Urine Ketones (Negative) mg/dL Trace H Urine Blood (Negative) Trace-intact H Urine Nitrite (Negative) Negative Urine Bilirubin (Negative) Negative Urine Urobilinogen (Up to 0.2) mg/dL 1.0 H Ur Leukocyte Esterase (Negative) Large H Urine RBC (0-2) HPF 3-5 H Urine WBC (0-5) HPF 10-20 H Ur Epithelial Cells (Negative) HPF Few Urine Crystals (Negative) HPF Negative Urine Bacteria (Negative) HPF Few Urine Casts (Negative) LPF Negative Urine Mucus (Negative) Moderate Ur Culture Indicated? Yes Urine Glucose (Negative) mg/dL Negative Quality:SDOH Health Related Social Needs: No Data to Display PFSH All Active Problems (Updated 10/08/24 @ 13:46 by Rebecca Medina NP) UTI (urinary tract infection) (Acute) Liver contusion (Acute) Ganglion cyst of right foot (Acute) Exostosis (Acute) Fibroma (Acute) Pain in right foot (Acute) Medical History Dysuria Vaginal irritation Low TSH level LGSIL (low grade squamous intraepithelial dysplasia) 04/15/2021 screening Pap LGSIL. 05/01/2021. Normal appearing colposcopy. No biopsies taken. Recommend repeat pap PP Marijuana smoker History of intravenous drug use in remission History of opioid abuse Urinary frequency Hepatitis C Optic neuritis UTI (urinary tract infection) Surgical History H/O umbilical hernia repair S/P hernia repair Social History Smoking/Tobacco Use Status: Current every day Tobacco Type: cigarettes and e- cigarettes Smoking risk assessment performed?: Yes Alcohol Intake: current Alcohol Intake frequency: holidays/special occasions only Drug use: Daily Substance use type: does not use, former substance user and marijuana Details: clean/sober for 7 years Reports about 5 cigarettes a week since giving . Housing: other Do you feel safe at home: Yes Do you feel safe in your relationship?: Yes Female Reproductive History Menstrual control method: pills History History 4 Para 3 Hx # Term Pregnancies 3 Multiple births 0 Hx # Pregnancies 0 Ectopic pregnancies 0 AB induced 1 Hx Number of Living Children 3 AB spontaneous 0 Past Pregnancies Del. Date GA/Weeks # Preg Succ Route Wgt Sex Labor Lgth Anesth esia Location Prov Complic Unknown 38 No Yes vaginal Female 11hrs 19oz [facility] [place], [facility] 04/26/11 40 No vaginal 3345.244 g Male 36 hrs [facility] - [facility] 09/13/14 41 No vaginal 3600.389 g Female 12 hrs [facility] - [facility] Delivery Date: Last Updated by: Hermelinda Wilkinson, JUAREZ Peguero; Delivery Date: 04/26/11 Last Updated by: Susan Richardson IOL for PROM at term, 36 hrs labor w/epidural, GBS negative. Nml , baby w/GBS meningitis at 3 weeks of age, is ok now. Ronald Delivery Date: 09/13/14 Last Updated by: Susan Richardson IOL for postdates; epidural. GBS neg. Nml Geni
[2024-10-08 13:42] LABS: Bacteria Few HPF (Negative); Epithelial Cells Few HPF (Negative)
[2024-10-08 13:43] LABS: C & S Indicated? Yes; Casts Negative LPF (Negative); Crystals Negative HPF (Negative); Mucus Moderate (Negative)
[2024-10-08] MEDS: Cephalexin 500 MG CAP PO (13:53)
[2024-10-08] MEDS: Phenazopyridine 100 MG TAB PO (13:53)
[2024-10-08] MEDS: Phenazopyridine 100 MG TAB, 2 TABS/BTL PO (13:53)
[2024-10-08] MEDS: Cephalexin 500 MG CAP, 2 CAPS/BTL PO (13:54)
[2024-10-08 13:58] VITALS: BP 121/84; PULSE 84; RESP 16; TEMP 36.9; O2SAT 98
--- NOTE | 2024-10-10 08:36 | NUR.NOTE ---
Access chart to get the discharge antibiotic for urine culture result. Nursing Note:
== END 2024-10-08 14:03 | disposition home or self-care (01) ==
LOC: ER 13:55
PROVIDERS: Emergency Provider Registered Nurse Emergency; PCP Family Medicine
DX: N39.0 Urinary tract infection, site not specified (principal)
CPT/HCPCS: 99283 ×2; 81025; 87077; 81003; 81015; 87086; 87186

== ENCOUNTER 2025-01-04 20:37 | Outpatient (REF) | payer SELFPAY ==
[2025-01-04 21:36] LABS: WBC 0-2 HPF (0-5)
== END 2025-01-04 20:38 | disposition home or self-care (01) ==
LOC: LBN 20:37
PROVIDERS: PCP Family Medicine; Visit Provider Physician Assistant Medical
DX: R30.0 Dysuria (principal)
CPT/HCPCS: 81015; 87086; 87480; 87510; 87660

== ENCOUNTER 2025-01-31 14:12 | Emergency (ER) | payer SELFPAY ==
[2025-01-31 14:21] VITALS: BP 153/63; PULSE 87; RESP 18; TEMP 36.9; O2SAT 98
--- NOTE | 2025-01-31 14:32 | W.ED.GENAD ---
Discharge Plan Disposition Patient Disposition: Home Condition: Stable Discharge Details Clinical Impression: UTI (urinary tract infection), Bacterial vaginosis Primary Care Provider: Francisco Mayorga ED Provider: Krystle Brown Home Meds and New Rx's Prescriptions: New nitrofurantoin monohyd/m-cryst [Macrobid] 100 mg capsule 100 mg PO Q12H 4 Days Qty: 8 0RF Rx Instructions: must administer with a meal/food metronidazole 0.75 % gel 1 applic topical DAILY 5 Days Qty: 45 0RF No Action clonazepam 0.5 mg tablet 0.5 mg PO DAILY Patient Comments: TAKE 1 TABLET BY MOUTH TWICE DAILY ketorolac 10 mg tablet 10 mg PO TID PRN Patient Comments: TAKE ONE TABLET BY MOUTH UP TO THREE TIMES A DAY NEEDED FOR PAIN FOR THE NEXT 5 DAYS ondansetron 4 mg tablet,disintegrating 4 mg PO TID PRN Patient Comments: TAKE 1 TABLET BY MOUTH UP TO 3 TIMES DAILY NEEDED FOR NAUSEA AND VOMITING 20 MINUTES PRIOR TO MEALS. phenazopyridine [Pyridium] 100 mg tablet 100 mg PO TID PRNQty: 6 0RF Discharge Instructions Instructions: Urinary Tract Infection, Adult ED, Bacterial Vaginosis ED Additional Instructions: You were seen in the emergency department today for evaluation of pain when you pee and vaginal irritation and discharge and were found to have a UTI and bacterial vaginosis. In our department you do full physical examination performed and were given your first days worth of antibiotics for the UTI. Please take all the antibiotics until they are gone, even if you start to feel better. Additionally, you were given a prescription for metronidazole gel to use intravaginally for the next 5 days. Please continue to use good hygiene with unscented soaps, urinate after sex, and please follow-up with your primary care provider in the next few days to discuss this visit and any symptoms that change, worsen, or persist. Thank you for allowing us to be part of your care. HPI General Mode of arrival: ambulatory. Date/Time Provider Initiated Documentation: 01/31/25 14:14. Limitations to Documentation: no limitations. Information obtained by: patient and old records reviewed. HPI Narrative: This is a 34-year-old female patient with a history of frequent UTIs and BV, presenting for evaluation of similar symptoms. The patient reports that she started to feel symptoms yesterday, with some dysuria, vaginal discharge and vaginal discomfort. She has had some cramping abdominal pain, did just finished her period yesterday. States that she has not had fever, has been eating and drinking typically, with no vomiting. Last episode of BV was several weeks ago, but she feels like the symptoms did not entirely clear. Last UTI over the spring, culture reviewed and grew pansensitive E. coli, completed a course of cephalexin. The patient's partner has had a vasectomy, she reports that she pees after intercourse, though she does use some scented soaps. Is following with urology given a small bladder prolapse, currently in between medical insurances which makes follow-up difficult. Related Data Home Medications ?Medication ?Instructions ?Recorded ?Confirmed clonazepam 0.5 mg tablet 0.5 mg PO DAILY 10/21/21 10/08/24 ketorolac 10 mg tablet 10 mg PO TID PRN 10/08/24 10/08/24 ondansetron 4 mg disintegrating 4 mg PO TID PRN 10/08/24 10/08/24 tablet phenazopyridine 100 mg tablet 100 mg PO TID PRN 6 doses #6 tabs 10/08/24 (Pyridium) metronidazole 0.75 % topical gel 1 applic topical DAILY 5 days #45 01/31/25 grams nitrofurantoin 100 mg PO Q12H 4 days #8 caps 01/31/25 monohydrate/macrocrystals 100 mg capsule (Macrobid) Previous Rx's ?Medication ?Instructions ?Recorded phenazopyridine 100 mg tablet 100 mg PO TID PRN 6 doses #6 tabs 10/08/24 (Pyridium) metronidazole 0.75 % topical gel 1 applic topical DAILY 5 days #45 01/31/25 grams nitrofurantoin 100 mg PO Q12H 4 days #8 caps 01/31/25 monohydrate/macrocrystals 100 mg capsule (Macrobid) Allergies Allergy/AdvReac Type Severity Reaction Status Date / Time No Known Allergies Allergy Verified 09/01/24 07:59 General Stated Complaint: Urinary SUDHA: 4 Exam Narrative Exam Narrative: Gen: Awake and alert, in no apparent distress HEENT: Non-icteric sclera Neck: Supple Lungs: No apparent respiratory distress, normal respiratory effort. CV: Appears well perfused, heart with regular rate and rhythm Abdomen: Non-distended, soft, nontender to palpation without rigidity, rebound, or guarding MSK: Moves 4 extremities without apparent limitation in ROM. No CVA tenderness Skin: Visualized skin without rashes, cyanosis. Neuro: Normal Gait, no obvious focal deficits or facial asymmetry. Speaks in full, clear sentences. Psych: Appropriate for situation. Course Vital Signs Vital signs: Vital Signs Temperature 36.9 C 01/31/25 14:21 Pulse 87 01/31/25 14:21 Respiratory Rate 18 01/31/25 14:21 Blood Pressure 153/63 H 01/31/25 14:21 Pulse Oximetry 98 01/31/25 14:21 Temperature 36.9 C 01/31/25 14:21 Temperature Source Oral 01/31/25 14:21 Pulse 87 01/31/25 14:21 Respiratory Rate 18 01/31/25 14:21 Blood Pressure 153/63 H 01/31/25 14:21 Blood Pressure Position Sitting 01/31/25 14:21 Pulse Oximetry 98 01/31/25 14:21 Oxygen Delivery Method Room Air 01/31/25 14:21 Oxygen Flow Rate 0 01/31/25 14:21 Pain Level 6 01/31/25 14:21 Medical Decision Making This is a 34-year-old female patient presenting for evaluation of dysuria, vaginal discharge and discomfort. Differential includes but is not limited to urinary tract infection, no systemic symptoms or CVA tenderness to significantly increase my concern for pyelonephritis, renal stone, sepsis or bacteremia. Considered bacterial vaginosis, yeast infection, trichomoniasis and other vaginitis/vaginosis pathogens. Considered early . I am reassured by the patient stable vital signs, and we will obtain a urinalysis, urine test, and have the patient self swab for a vaginal pathogen screen. - Urine concerning for infection with large pyuria, positive nitrites, and bacteria, and although there are many epithelial cells the presence of nitrates in the patient's symptoms warrant treatment. She did have moderate blood consistent with the end of her period. Bacterial vaginosis was positive on her vaginal pathogen screen. I discussed treatment with the patient and based on her last culture data we will proceed with Macrobid, and vaginal metronidazole gel, 5 days course. These medications were sent to the pharmacy and the patient was counseled on UTI prevention measures including unscented soap, urination after sex, avoidance of bubble baths, etc. At this time, the patient has had a full medical evaluation and is safe for discharge to home. They are hemodynamically stable, ambulatory, and tolerating PO. They are understanding of the follow-up plan and return precautions. They left our facility without incident. Krystle Brown MD [facility] All Active Problems (Updated 01/31/25 @ 16:03 by Krystle Brown MD) Bacterial vaginosis (Acute) UTI (urinary tract infection) (Acute) Liver contusion (Acute) Ganglion cyst of right foot (Acute) Exostosis (Acute) Fibroma (Acute) Pain in right foot (Acute) Medical History Dysuria Vaginal irritation Low TSH level LGSIL (low grade squamous intraepithelial dysplasia) 04/15/2021 screening Pap LGSIL. 05/01/2021. Normal appearing colposcopy. No biopsies taken. Recommend repeat pap PP Marijuana smoker History of intravenous drug use in remission History of opioid abuse Urinary frequency Hepatitis C Optic neuritis UTI (urinary tract infection) Surgical History H/O umbilical hernia repair S/P hernia repair Social History Smoking/Tobacco Use Status: Current every day Tobacco Type: cigarettes and e-cigarettes Smoking risk assessment performed?: Yes Alcohol Intake: current Alcohol Intake frequency: a few times a week Drug use: Daily Substance use type: does not use, former substance user and marijuana Details: clean/sober for 7 years Reports about 5 cigarettes a week since giving . Housing: other Do you feel safe at home: Yes Do you feel safe in your relationship?: Yes Female Reproductive History Menstrual control method: pills History History 4 Para 3 Hx # Term Pregnancies 3 Multiple births 0 Hx # Pregnancies 0 Ectopic pregnancies 0 AB induced 1 Hx Number of Living Children 3 AB spontaneous 0 Past Pregnancies Del. Date GA/Weeks # Preg Succ Route Wgt Sex Labor Lgth Anesthesia Location Prov Complic Unknown 38 No Yes vaginal Female 11hrs 19oz [facility] 04/26/11 40 No vaginal 3345.244 g Male 36 hrs [facility] - [facility] 09/13/14 41 No vaginal 3600.389 g Female 12 hrs [facility] - MD service Delivery Date: Last Updated by: JUAREZ Hart; Delivery Date: 04/26/11 Last Updated by: Susan Richardson IOL for PROM at term, 36 hrs labor w/epidural, GBS negative. Nml , baby w/GBS meningitis at 3 weeks of age, is ok now. Ronald Delivery Date: 09/13/14 Last Updated by: Susan Richardson IOL for postdates; epidural. GBS neg. Nml Geni
[2025-01-31 14:46] LABS: Glucose Negative (Negative)
[2025-01-31 15:02] LABS: C & S Indicated? Yes; RBC 0-2 HPF (0-2); WBC 20-50 HPF (0-5)
[2025-01-31] MEDS: MacroBID 100 MG CAP, 2 CAPS/BTL PO (16:17)
--- NOTE | 2025-02-02 09:44 | NUR.NOTE ---
Accessed PT chart to obtain the antibiotics prescribed for the Pt. The antibiotics were listed on the Specimen Report and gave the report to the Providers.
== END 2025-01-31 16:22 | disposition home or self-care (01) ==
PROVIDERS: Emergency Provider Emergency Medicine; PCP Family Medicine
DX: N39.0 Urinary tract infection, site not specified (principal); N76.0 Acute vaginitis; B96.89 Other specified bacterial agents as the cause of diseases classified elsewhere; F17.210 Nicotine dependence, cigarettes, uncomplicated; F17.290 Nicotine dependence, other tobacco product, uncomplicated
CPT/HCPCS: 87077; 99283; 81003; 81015; 87086; 87186; 87480; 87510; 87660

== ENCOUNTER 2025-02-09 20:18 | Outpatient (REF) | payer SELFPAY ==
--- NOTE | 2025-02-09 16:35 | PAPFT_PTH ---
PATIENT: Robyn Nina LOC: [facility]#:[id number] AGE/SX: 34/F ROOM: RE02/09/[address]: Theodora Bender : 1990 BED: DIS: 02/09/2025 SPEC #: [id number] RECD: 02/10/25 12:48 STATUS: JIMENEZ REJazzy #: [id number] DELROY: 02/09/25 16:[address]: Theodora Bender DEPT: [facility] Cytology RECD BY: Lisbet Douglas ENTERED: 02/10/25 12:49 SP TYPE: PAPFT OTHR DR: Francisco Mayorga Tissues: 1 - CX/ENDOCX FOR PAP SMEARS Procedures: PAP THIN PREP/[facility] Screening HPV DNA PROBE Comments: [id number] (HPV 16 & 18/45)
== END 2025-02-09 20:19 | disposition home or self-care (01) ==
LOC: NCHCN 20:18
PROVIDERS: PCP Family Medicine; Referring Provider Family Medicine; Visit Provider Family Medicine
DX: Z12.4 Encounter for screening for malignant neoplasm of cervix (principal)
CPT/HCPCS: 81513; 87481; 87661; 88142; 87086; 87480; 87510; 87624; 87660

== ENCOUNTER 2025-02-13 21:33 | Outpatient (REF) | payer SELFPAY | END 2025-02-13 21:34 | disposition home or self-care (01) | LOC: NCHCN 21:33 | PROVIDERS: PCP Family Medicine; Visit Provider Family Medicine | DX: R30.0 Dysuria (principal) | CPT/HCPCS: 87077; 87086; 87186 ==

== ENCOUNTER 2025-03-23 12:53 | Outpatient (REF) | payer SELFPAY ==
--- NOTE | 2025-03-23 11:00 | CER_PTH ---
PATIENT: Robyn Nina LOC: [facility] U#:[id number] AGE/SX: 34/F ROOM: RE03/23/[address]: Tejal Cifuentes MD : 1990 BED: DIS: 03/23/2025 SPEC #: [id number] RECD: 03/23/25 17:16 STATUS: JIMENEZ FLORES #: [id number] DELROY: 03/23/25 11:[address]: Tejal Cifuentes DEPT: Surgical Specimen RECD BY: Lisbet Douglas ENTERED: 03/23/25 17:17 SP TYPE: CER OTHR DR: Theodora Bender Tissues: 1 - CERVICAL BIOPSY 2 - CERVICAL BIOPSY 3 - ENDOCERVICAL BX/CURRETTE Procedures: GROSS AND MICRO LEVEL 4 IMMUNOPEROXIDASE STAIN Comments: [id number]
== END 2025-03-23 12:54 | disposition home or self-care (01) ==
LOC: LBN 12:53
PROVIDERS: PCP Family Medicine; Visit Provider Obstetrics & Gynecology
DX: R87.613 High grade squamous intraepithelial lesion on cytologic smear of cervix (HGSIL) (principal)
CPT/HCPCS: 88305; 88361

== ENCOUNTER 2025-03-24 13:36 | Outpatient (REF) | payer SELFPAY ==
[2025-03-24 14:59] LABS: Abs Immature Grans 0.01 10^3/uL (0.0-0.06); HCT 37.6 % (36.0-46.0); HGB 12.6 g/dL (11.2-15.7); Immature Grans % 0.2 %; MCH 28.8 pg (27.0-33.0); MCHC 33.5 % (32.0-36.0); MCV 86 fL (80-95); MPV 10.0 fL (8.0-11.0); Platelet Count 284 10^3/uL (130-400); RBC 4.38 10^6/uL (3.93-5.22); RDW 13.7 % (11.7-14.6); RDW-SD 43.1 fL; WBC 6.27 10^3/uL (4.4-10.8)
[2025-03-24 15:14] LABS: ALT 11 U/L (10-49); AST 18 U/L (<34); Albumin 4.9 g/dL (3.4-5.0); Alkaline Phosphatase 38 U/L (46-116); Anion Gap 10.8 mmol/L (3-11); BUN 13 mg/dL (9-23); Bilirubin, Total 0.60 mg/dL (0.2-1.2); CO2 26.2 mmol/L (20.0-31.0); Calcium 9.7 mg/dL (8.3-10.6); Chloride 103 mmol/L (98-107); Glucose 72 mg/dL (74-106); Potassium 4.3 mmol/L (3.5-5.1); Sodium 140 mmol/L (136-145); Total Protein 7.7 g/dL (5.7-8.2)
[2025-03-24 15:15] LABS: TSH (W/Ref FT4) 1.05 uIU/mL (0.55-4.78)
[2025-03-24 15:20] LABS: Hemoglobin A1C 5.1 % (<5.7)
[2025-03-24 22:22] LABS: CRP, High Sensitivity <0.34 mg/L (See Note)
[2025-03-24 23:32] LABS: HIV-1/2 Ag & Ab Screen Negative (Negative)
[2025-03-25 08:07] LABS: Hepatitis C Ab w Rflx HCV PCR Reactive (Negative)
== END 2025-03-24 13:37 | disposition home or self-care (01) ==
LOC: NCHCN 13:36
PROVIDERS: PCP Family Medicine; Visit Provider Family Medicine
DX: R63.4 Abnormal weight loss (principal)
CPT/HCPCS: 80053; 86141; 86803; 87389; 87522; 83036; 84443; 85025

== ENCOUNTER 2025-04-19 09:53 | Outpatient (REF) | payer SELFPAY ==
--- NOTE | 2025-04-19 09:45 | CER_PTH ---
PATIENT: Robyn Nina LOC: [facility] U#:[id number] AGE/SX: 34/F ROOM: RE04/19/[address]: Tejal Cifuentes MD : 1990 BED: DIS: 04/19/2025 SPEC #: [id number] RECD: 04/19/25 12:57 STATUS: JIMENEZ REJazzy #: [id number] DELROY: 04/19/25 09:[address]: Tejal Cifuentes DEPT: Surgical Specimen RECD BY: Lisbet Douglas ENTERED: 04/19/25 12:57 SP TYPE: CER OTHR DR: Theodora Bender Tissues: 1 - CERVICAL BIOPSY Procedures: GROSS AND MICRO LEVEL 4 Comments: [id number]
== END 2025-04-19 09:54 | disposition home or self-care (01) ==
LOC: LBN 09:53
PROVIDERS: PCP Family Medicine; Visit Provider Obstetrics & Gynecology
DX: R87.613 High grade squamous intraepithelial lesion on cytologic smear of cervix (HGSIL) (principal)
CPT/HCPCS: 88305

== ENCOUNTER 2025-04-27 18:31 | Outpatient (REF) | payer SELFPAY | END 2025-04-27 18:32 | disposition home or self-care (01) | LOC: NCHCN 18:31 | PROVIDERS: PCP Family Medicine; Visit Provider Family Medicine | DX: R63.4 Abnormal weight loss (principal) | CPT/HCPCS: 82784; 83516 ==

== ENCOUNTER 2025-05-01 22:13 | Emergency (ER) | payer SELFPAY ==
[2025-05-01 22:16] VITALS: BP 148/85; PULSE 83; RESP 16; TEMP 37.2; O2SAT 99
--- NOTE | 2025-05-01 22:36 | ED.GENADUL_ITS ---
Discharge Plan Disposition Patient Disposition: Home Condition: Good Discharge Details Clinical Impression: Vaginal bleeding Primary Care Provider: Theodora Bender ED Provider: Cedrick Tellez Home Meds and New Rx's Prescriptions: No Action senna 8.6 mg capsule 8.6 mg PO DAILY clonazepam 0.5 mg tablet 0.5 mg PO DAILY Patient Comments: TAKE 1 TABLET BY MOUTH TWICE DAILY Discharge Instructions Additional Instructions: At this time the packing has stopped the bleeding. Your hemoglobin and blood numbers are normal. Please drink plenty of fluid and stay well-hydrated. Please take naproxen or Motrin every 6-8 hours to help with the pain and cramping. You can also take 1000 mg of Tylenol every 6 hours. Please follow-up closely with your obstetrics gynecology specialist next week. If you notice any worsening of your symptoms, or any new symptoms such as vomiting, diarrhea, fever, chills, shortness of breath, chest pain, numbness, weakness, or fainting , please return immediately to the emergency department for reevaluation. Please follow up with your primary care provider as soon as possible for reassessment and reevaluation. As always, it was a pleasure participating in your medical care today. Stand Alone Forms: Portal Information Referrals: Tejal Cifuentes MD [ [facility] STAFF PHYSICIAN, Obstetrics] Hermelinda Cortes DO [OSTEOPATHIC DOCTOR, Obstetrics] Julia Smalls DO [OSTEOPATHIC DOCTOR, Obstetrics] [facility] General Date/Time Provider Initiated Documentation: 05/01/25 22:19 . 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 Procedure went well without complications. About 4 days ago the patient developed some mild bleeding, and then it became extremely heavy over the last 24 hours. She has soaked through 20+ pads today. She also started feeling light headed and dizzy. She came in for further assessment. Previously she was having clots, but now symptomatology appears to be consistent with persistent active bleeding. She denies significant abdominal pain but does admit to very minimal abdominal cramping. No other complaints at this time. No other modifying factors. 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 3.ENT: Atraumatic external nose and ears. Moist MM. Neck: Symmetric, trachea midline, No thyromegaly. 4.CVS: +S1/S2, Peripheral pulses 2+ and equal in all extremities. Brisk capillary refill in all extremities. 5.RESP: Unlabored respiratory effort. Clear to auscultation bilaterally. No wheezes rales or rhonchi 6.GI: Soft, Nontender/Nondistended, No hepatosplenomegaly. No guarding or rebound. 7.MSK: Normocephalic/Atraumatic, Extremities w/o deformity or ttp No cyanosis or clubbing, Normal movement of all extremities 8.Skin: Warm, Dry. No rashes or lesions. 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 Sensation grossly intact, no focal neurologic deficits. 10.Psych: (AAO) x3. Appropriate mood and affect Course Vital Signs Vital signs: Vital Signs Temperature 37.2 C 05/01/25 22:16 Pulse 83 05/01/25 22:16 Respiratory Rate 16 05/01/25 22:16 Blood Pressure 148/85 H 05/01/25 22:16 Pulse Oximetry 99 05/01/25 22:16 Temperature 37.2 C 05/01/25 22:16 Pulse 83 05/01/25 22:16 Respiratory Rate 16 05/01/25 22:16 Blood Pressure 148/85 H 05/01/25 22:16 Blood Pressure Position Sitting 05/01/25 22:16 Pulse Oximetry 99 05/01/25 22:16 Oxygen Delivery Method Room Air 05/01/25 22:16 Oxygen Flow Rate 0 05/01/25 22:16 Pain Level 0 05/01/25 22:16 Medical Decision Making This is a pleasant 34-year-old female with past medical history of urinary tract infections, 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 Procedure went well without complications. About 4 days ago the patient developed some mild bleeding, and then it became extremely heavy over the last 24 hours. She has soaked through 20+ pads today. She also started feeling light headed and dizzy. She came in for further assessment. Previously she was having clots, but now symptomatology appears to be consistent with persistent active bleeding. She denies significant abdominal pain but does admit to very minimal abdominal cramping. No other complaints at this time. No other modifying factors. Exam demonstrates well-appearing female, no acute distress, no abdominal pain or tenderness on palpation. Vital signs demonstrate normal heart rate, stable blood pressure. She does have some mild persistent vaginal bleeding. Will type and screen, check hemoglobin rehydrate give Toradol monitor closely and reassess. After data returns we will reach out to OB. 12:30 AM Laboratory workup has returned, hemoglobin has had a point drop down to 11.7 over the past month, no white count. Platelets stable, electrolytes stable, renal function good. Patient is a positive for blood type. Vaginal exam was performed and bleeding appears to be endocervical. There appears to be a steady stream/light continuous flow blood. The area was packed to reduce flow. I discussed the case with Dr. Cortes, she will come and assess the patient here in the ED for further potential definitive management. 1:49 AM Patient has been seen and assessed by Dr. Cortes, she was repacked, and bleeding is stabilized. Patient will be discharged home with close follow-up in the clinic next week. Patient remains hemodynamically stable, pain is controlled. Recommend continued NSAID therapy at home. Hemoglobin level stable. No evidence of life-threatening hemorrhage at this time. Discussed red flags for which to return. I have extensively reviewed the treatment plan and discharge instructions with the patient. I have addressed all patient concerns at this time. The patient was made aware of what symptoms to monitor for that would warrant a return to the emergency department. Discussed the plan with the patient, they demonstrate verbal understanding and agreement with our assessment and plan at this time. The documentation in this chart was dictated using Gamar dictation software. Please excuse any dictation errors. PFSH All Active Problems (Updated 05/02/25 @ 01:52 by Cedrick Tellez DO) Vaginal bleeding (Acute) Amenorrhea (Acute) Weight loss (Acute) Liver contusion (Acute) Ganglion cyst of right foot (Acute) Exostosis (Acute) Fibroma (Acute) Pain in right foot (Acute) Medical History (Updated 05/02/25 @ 01:52 by Cedrick Tellez DO) History of abnormal cervical Pap smear Feb 2025: HSIL/HPV+ -->colp: Dec 2021: NIL/HPV neg 04/15/2021: LGSIL -->Colposcopy: Normal appearing, No bx Low TSH level Marijuana smoker History of intravenous drug use in remission History of opioid abuse Hepatitis C Optic neuritis Surgical History H/O umbilical hernia repair S/P hernia repair Social History Smoking/Tobacco Use Status: Current every day Tobacco Type: cigarettes and e- cigarettes Smoking risk assessment performed?: Yes Alcohol Intake: current Alcohol Intake frequency: a few times a week Drug use: Daily Substance use type: does not use, former substance user and marijuana Details: clean/sober for 7 years Reports about 5 cigarettes a week since giving . Housing: other Do you feel safe at home: Yes Do you feel safe in your relationship?: Yes Female Reproductive History Menstrual control method: pills History History 4 Para 3 Hx # Term Pregnancies 3 Multiple births 0 Hx # Pregnancies 0 Ectopic pregnancies 0 AB induced 1 Hx Number of Living Children 3 AB spontaneous 0 Past Pregnancies Del. Date GA/Weeks # Preg Succ Route Wgt Sex Labor Lgth Anesth esia Location Prov Complic Unknown 38 No Yes vaginal Female 11hrs 19oz monik Pang CNM 04/26/11 40 No vaginal 3345.244 g Male 36 hrs [facility] - [facility] 09/13/14 41 No vaginal 3600.389 g Female 12 hrs [facility] - MD service Delivery Date: Last Updated by: JUAREZ Hart; Delivery Date: 04/26/11 Last Updated by: Susan Richardson IOL for PROM at term, 36 hrs labor w/epidural, GBS negative. Nml , baby w/GBS meningitis at 3 weeks of age, is ok now. Ronald Delivery Date: 09/13/14 Last Updated by: Susan Richardson IOL for postdates; epidural. GBS neg. Nml Geni
[2025-05-01] MEDS: Ketorolac 15 MG/ML VIAL IVP (23:04)
[2025-05-01 23:08] LABS: Abs Immature Grans 0.01 10^3/uL (0.0-0.06); HCT 34.7 % (36.0-46.0); HGB 11.7 g/dL (11.2-15.7); Immature Grans % 0.2 %; MCH 29.4 pg (27.0-33.0); MCHC 33.7 % (32.0-36.0); MCV 87 fL (80-95); MPV 9.1 fL (8.0-11.0); Platelet Count 282 10^3/uL (130-400); RBC 3.98 10^6/uL (3.93-5.22); RDW 13.4 % (11.7-14.6); RDW-SD 43.1 fL; WBC 5.18 10^3/uL (4.4-10.8)
[2025-05-01 23:22] LABS: INR 1.0 (0.9-1.1); PTT Activated 26.7 sec (20.6-30.2); Prothrombin Time 10.2 sec (9.1-11.1)
[2025-05-01 23:28] LABS: ALT 10 U/L (10-49); AST 22 U/L (<34); Albumin 4.5 g/dL (3.2-5.0); Alkaline Phosphatase 41 U/L (46-116); Anion Gap 9.8 mmol/L (3-11); BUN 12 mg/dL (9-23); Bilirubin, Total 0.3 mg/dL (0.2-1.2); CO2 24.2 mmol/L (20.0-31.0); Calcium 9.2 mg/dL (8.3-10.6); Chloride 105 mmol/L (98-107); Glucose 90 mg/dL (74-106); Potassium 3.3 mmol/L (3.5-5.1); Sodium 139 mmol/L (136-145); Total Protein 7.2 g/dL (5.7-8.2)
[2025-05-01] MEDS: Lactated Ringers 1,000 ML 1000 ML IV (23:29)
[2025-05-02] MEDS: Gelatin SPONGE 12-7 MM PKT 1 EACH TP (00:46)
[2025-05-02] MEDS: MORPHine 10 MG/ML VIAL 2 MG IVP (01:14)
--- NOTE | 2025-05-02 01:51 | W.GYNCONSULT ---
Date of service: 05/02/25 Time of Service: 01:52 Assessment and Plan Assessment and plan (1) History of abnormal cervical Pap smear: Assessment and plan: Status post LEEP procedure (2) Vaginal bleeding: Status: Acute (3) Postoperative vaginal bleeding following genitourinary procedure: Status: Acute Assessment and plan: Patient had increasing vaginal bleeding approximately 10 days post LEEP procedure. She had been recently sexually active. It appears that the eschar from the conization site had been disrupted. Base was cauterized with Monsel solution. Patient discharged to home to follow-up with Dr. Cifuentes next week. History of Present Illness History of Present Illness Chief Complaint: Bleeding, status post LEEP, postcoital Narrative: Patient had a LEEP procedure performed in the office by Dr. Cifuentes on 04/19/2025. She thought that she had started her menstrual cycle and had some bleeding. She had also been recently sexually active and throughout the course of the last day, she has had progressively ongoing and heavy bleeding. She had been passing clots and presented to the emergency department for this. Dr. Tellez initially evaluated her, and noted her to have some persistent vaginal bleeding from her cervix. Consults Consult date: 05/02/25 Requesting physician: Cedrick Tellez Review of Systems All systems reviewed & are unremarkable except as noted in HPI and below Eyes Eyes: Reports as per HPI and Reports system reviewed and no additional complaints, except as documented ENT Ears, Nose, Mouth, and Throat: Reports system reviewed and no additional complaints, except as documented and Reports as per HPI Cardiovascular Cardiovascular: Reports system reviewed and no additional complaints, except as documented, Denies chest pain and Denies irregular heart rhythm Respiratory Respiratory: Reports system reviewed and no additional complaints, except as documented, Denies chest congestion and Denies cough Gastrointestinal Gastrointestinal: Reports system reviewed and no additional complaints, except as documented Genitourinary Genitourinary: Reports system reviewed and no additional complaints, except as documented Neurologic Neurologic: Reports system reviewed and no additional complaints, except as documented PFSH All Active Problems (Updated 05/02/25 @ 01:55 by Hermelinda Cortes DO) Postoperative vaginal bleeding following genitourinary procedure (Acute) Vaginal bleeding (Acute) Amenorrhea (Acute) Weight loss (Acute) Liver contusion (Acute) Ganglion cyst of right foot (Acute) Exostosis (Acute) Fibroma (Acute) Pain in right foot (Acute) Medical History (Updated 05/02/25 @ 01:55 by Hermelinda Cortes DO) History of abnormal cervical Pap smear Feb 2025: HSIL/HPV+ -->colp: Dec 2021: NIL/HPV neg 04/15/2021: LGSIL -->Colposcopy: Normal appearing, No bx Low TSH level Marijuana smoker History of intravenous drug use in remission History of opioid abuse Hepatitis C Optic neuritis Surgical History H/O umbilical hernia repair S/P hernia repair Social History Smoking/Tobacco Use Status: Current every day Tobacco Type: cigarettes and e-cigarettes Smoking risk assessment performed?: Yes Alcohol Intake: current Alcohol Intake frequency: a few times a week Drug use: Daily Substance use type: does not use, former substance user and marijuana Details: clean/sober for 7 years Reports about 5 cigarettes a week since giving . Housing: other Do you feel safe at home: Yes Do you feel safe in your relationship?: Yes Female Reproductive History Menstrual control method: pills History History 4 Para 3 Hx # Term Pregnancies 3 Multiple births 0 Hx # Pregnancies 0 Ectopic pregnancies 0 AB induced 1 Hx Number of Living Children 3 AB spontaneous 0 Past Pregnancies Del. Date GA/Weeks # Preg Succ Route Wgt Sex Labor Lgth Anesthesia Location Prov Complic Unknown 38 No Yes vaginal Female 11hrs 19oz [facility] KAMILA Quiñonez 04/26/11 40 No vaginal 7 lb 6 oz Male 36 hrs [facility] - [facility] 09/13/14 41 No vaginal 7 lb 15 oz Female 12 hrs [facility] - MD service Delivery Date: Last Updated by: JUAREZ Hart; Delivery Date: 04/26/11 Last Updated by: Susan Richardson IOL for PROM at term, 36 hrs labor w/epidural, GBS negative. Nml , baby w/GBS meningitis at 3 weeks of age, is ok now. Ronald Delivery Date: 09/13/14 Last Updated by: Susan Richardson IOL for postdates; epidural. GBS neg. Nml Carabella Exam Const General: cooperative, healthy appearing, comfortable, no acute distress, well developed and well groomed HENMT Head: normal to inspection Eyes General: appearance normal, both eyes and all related structures Neck Neck: normal visual inspection, supple, no anterior neck swelling and nontender Resp Effort & Inspection: normal respiratory effort, no audible wheezes and no cough Cardio Rate: regular rate Rhythm: regular rhythm Other: Speculum inserted into the vaginal vault. Cervix was identified in the area of the LEEP procedure had a slow, and persistent, ooze. The eschar had been disrupted. In light of this, Monsel's solution was placed at the cervix with a large swab. Pressure was held for 2 minutes. Swabs were removed, LEEP base was noted to be hemostatic. Skin General skin exam: no rashes or lesions noted Extrem General: normal to inspection, no clubbing, cyanosis or edema and no calf tenderness bilaterally Psych Appearance: grossly normal Mental Status: mental status grossly normal Speech and Movement: speech and movement normal Mood: congruent mood Insight: insight good Judgment: judgment good Results Last Vital Signs Temp 99.0 F 05/01/25 22:16 Pulse 83 05/01/25 22:16 Resp 16 05/01/25 22:16 BP 148/85 H 05/01/25 22:16 Pulse Ox 99 05/01/25 22:16 Labs 05/01/25 23:00 05/01/25 23:00 Labs: Laboratory Results - last 24 hr 05/01/25 23:00 WBC 5.18 RBC 3.98 Hgb 11.7 Hct 34.7 L MCV 87 MCH 29.4 MCHC 33.7 RDW 13.4 Plt Count 282 MPV 9.1 Immature Gran % 0.2 Neutrophils % 45.0 Lymphocytes % 43.2 Monocytes % 9.1 Eosinophils % 1.9 Basophils % 0.6 Nucleated RBC % 0.0 Absolute Neutrophils 2.33 Absolute Lymphocytes 2.24 Absolute Monocytes 0.47 Absolute Eosinophils 0.10 Absolute Basophils 0.03 PT 10.2 INR 1.0 APTT 26.7 Sodium 139 Potassium 3.3 L Chloride 105 Carbon Dioxide 24.2 Anion Gap 9.8 BUN 12 Creatinine 0.64 Est GFR (CKD-EPI 2020) 106.39 Glucose 90 Calcium 9.2 Total Bilirubin 0.3 AST 22 ALT 10 Alkaline Phosphatase 41 L Total Protein 7.2 Albumin 4.5 ABO/Rh A Positive Antibody Screen NEGATIVE
[2025-05-02 02:00] VITALS: BP 127/83; PULSE 64; RESP 18; O2SAT 99
== END 2025-05-02 02:13 | disposition home or self-care (01) ==
LOC: ER 05-02 02:23
PROVIDERS: Emergency Provider Student in an Organized Health Care Education/Training Program; PCP Family Medicine
DX: N93.9 Abnormal uterine and vaginal bleeding, unspecified; N99.820 Postprocedural hemorrhage of a genitourinary system organ or structure following a genitourinary system procedure
CPT/HCPCS: 99284 ×2; 96374; 96375; 80053; 86850; 86900; 86901; 96361; 85025; 85610; 85730; J1885; J2270

== ENCOUNTER → 2025-05-09 08:51 | Outpatient (CLI) | payer SELFPAY ==
[2025-05-09] MEDS: Barium Sulfate 2% W/V-Creamy Vanilla Smoothie 450 ML BTL PO (08:55)
[2025-05-09] MEDS: Barium Sulfate 2% W/V-Berry Smoothie 450 ML BTL PO (08:55)
--- NOTE | 2025-05-09 11:00 | DI.CT_ITS ---
Exam(s) CT CHEST/ABD/PEL W EXAM: CT CHEST/ABD/PEL W CLINICAL HISTORY: UNINTENTIONAL WT LOSS,R63.4,EASY BRUISING,? LYMPHOMA. TECHNIQUE: Imaging Protocol: Axial computed tomography images with coronal and sagittal reformatted images were created and reviewed. Computer aided detection (CAD) was utilized. CONTRAST MATERIAL: Intravenous: Omnipaque 350 Contrast volume:75 mL Oral: Yes COMPARISON: CR,XR XR CHEST 2V PA LATERAL from 03/22/2023 US US ABDOMEN LIMITED from 04/08/[address] RENAL COLIC WO from 09/01/2024 FINDINGS: CHEST: Pulmonary parenchyma: No consolidation. No dominant measurable mass. Tracheobronchial tree: No bronchiectasis. No mucous plugging.No bronchial wall thickening. Pleura: No effusion or pneumothorax. Mediastinum: Within normal limits. No evidence of adenopathy. Pulmonary arteries: No visible emboli. Cardiovascular: Normal heart size. No pericardial effusion. Thoracic aorta non- dilated. Bones: Unremarkable for age. No lytic or blastic lesions. No compression fractures. Soft tissues: Unremarkable. ABDOMEN and PELVIS: Liver: Normal density. No suspicious mass. Gallbladder and biliary tract: No evidence of stones or wall thickening. No biliary dilatation. Pancreas: Normal density, no abnormal calcifications or inflammatory process. Spleen: Normal. Kidneys: Normal size, contour and axis. No radiodense stones. No obstructive uropathy. No suspicious masses seen. Adrenal glands: No masses seen. Aorta: Abdominal portion non-dilated. Lymph nodes: Within normal limits. Soft tissues: Unremarkable. Bladder: Unremarkable. Bowel: No obstruction or bowel wall thickening. Peritoneal cavity: No ascites. No focal collection. No mesenteric inflammatory response. No free air. Bones: Unremarkable for age. Reproductive organs: Unremarkable for age. IMPRESSION: No acute abnormality in the chest, abdomen or pelvis. No evidence of lymphoma. RADIATION DOSE DELIVERED: 527.58mGy.cm Total DLP DATA REPOSITORY: All CT scans at this facility are submitted to the National Radiology Data Registry (NRDR) Dose Index Registry (DIR) with the [employer] (A[employer]). RADIATION OPTIMIZATION: All CT scans at this facility use at least one of these dose optimization techniques: automated exposure control; mA and/or kV adjustment per patient size (includes targeted exams where dose is matched to clinical indication); or iterative reconstruction.
[2025-05-09] MEDS: Omnipaque 350 MG/ML 100 ML BTL IJ (11:06)
[2025-05-09] MEDS: Normal Saline Flush 10 ML SYR IVP (11:06)
[2025-05-09] MEDS: Normal Saline - Diluent 50 ML VIAL IJ (11:06)
== END ==
LOC: DI 08:51
PROVIDERS: PCP Family Medicine; Visit Provider Family Medicine
DX: R63.4 Abnormal weight loss (principal)
CPT/HCPCS: 74177; 71260; J3490